=== PATIENT | male | born 1970 | race African-American/Black ===

== ENCOUNTER 2016-11-14 04:52 | Observation (INO) | payer BC ==
--- NOTE | 2016-11-14 05:39 | ED ---
General Adult HPI - General Chief complaint: Shortness of Breath Stated complaint: SOB Time Seen by Provider: 11/14/16 05:33 Source: patient, RN notes reviewed Mode of arrival: ambulatory Limitations: no limitations - History of Present Illness Initial comments: Patient is a pleasant 46-year-old male presenting to the emergency Department with some complaints of difficulty breathing. Patient states this usually occurs after he swallows. Patient feels like this is the back of his throat. Patient occasionally has a cough or gagging sensation. Patient has no difficulty in breathing at this time. No chest pain. No palpitations. Patient has not had rhinorrhea. No fever. - Related Data Home Medications Medication Instructions Recorded Confirmed Atorvastatin Calcium [Lipitor] 10 mg PO HS 11/14/16 11/14/16 Olmesartan/Amlodipin/Hcthiazid 1 each PO DAILY 11/14/16 11/14/16 [[id number] 40-10-25Mg] Allergies Allergy/AdvReac Type Severity Reaction Status Date / Time No Known Allergies Allergy Verified 11/14/16 04:59 Review of Systems ROS Statement: Those systems with pertinent positive or pertinent negative responses have been documented in the HPI. ROS Other: All systems not noted in ROS Statement are negative. Constitutional: Denies: fever Eyes: Denies: eye pain ENT: Reports: throat pain. Denies: ear pain Respiratory: Reports: dyspnea. Denies: cough Cardiovascular: Denies: chest pain, palpitations Endocrine: Denies: fatigue Gastrointestinal: Denies: abdominal pain Genitourinary: Denies: dysuria Musculoskeletal: Denies: back pain Skin: Denies: rash Neurological: Denies: weakness Past Medical History Past Medical History: Hypertension History of Any Multi-Drug Resistant Organisms: None Reported Past Surgical History: Orthopedic Surgery Additional Past Surgical History / Comment(s): right knee Past Psychological History: No Psychological Hx Reported Smoking Status: Current every day smoker Past Alcohol Use History: Occasional Past Drug Use History: None Reported General Exam Limitations: no limitations General appearance: alert, in no apparent distress Head exam: Present: atraumatic Eye exam: Present: normal appearance, PERRL ENT exam: Present: normal oropharynx Neck exam: Present: normal inspection Respiratory exam: Present: normal lung sounds bilaterally Cardiovascular Exam: Present: irregular rhythm GI/Abdominal exam: Present: soft. Absent: tenderness Extremities exam: Present: normal inspection. Absent: pedal edema, calf tenderness Back exam: Present: normal inspection Neurological exam: Present: alert Psychiatric exam: Present: normal affect, normal mood Skin exam: Absent: rash Course Vital Signs 11/14/16 11/14/16 04:54 06:23 Temperature 98.1 F Pulse Rate 85 79 Respiratory 20 16 Rate Blood Pressure 155/84 160/107 O2 Sat by Pulse 97 97 Oximetry - Reevaluation(s) Reevaluation #1: 11/14/16 05:54 Patient states he did see his doctor about a month ago with question of arrhythmia. Patient had an appointment to see a yield loss inspector however EKG was not done there and they were still waiting to see the original EKG from the primary care physician. EKG Findings - EKG Comments: EKG Findings:: A. fib with rate of 81. QRS 84. QT 374. QT TC 434. Normal axis. normal QRS. Lateral T wave inversion. Medical Decision Making - Medical Decision Making Patient does not meet sepsis criteria. Patient will be started with antibiotics for possible early pneumonia. Case was discussed in detail with practitioner Pamela larsen, who will admit for Dr. Guillory, covering for Dr. Montoya. Cardiology will be consulted and echo place. Patient will be started on IV heparin for anticoagulation for atrial fibrillation - Lab Data Result diagrams: 11/14/16 05:55 11/14/16 05:55 Lab Results 11/14/16 11/14/16 11/14/16 Range/Units 05:55 05:55 05:55 WBC 6.7 (3.8-10.6) k/uL RBC 4.73 (4.30-5.90) m/uL Hgb 12.8 L (13.0-17.5) gm/dL Hct 40.1 (39.0-53.0) % MCV 84.8 (80.0-100.0) fL MCH 27.0 (25.0-35.0) pg MCHC 31.9 (31.0-37.0) g/dL RDW 14.8 (11.5-15.5) % Plt Count 158 (150-450) k/uL Neutrophils % (Manual) 49.0 % Lymphocytes % (Manual) 46.0 % Monocytes % (Manual) 2.0 % Eosinophils % (Manual) 3.0 % Neutrophils # (Manual) 3.3 (1.3-7.7) k/uL Lymphocytes # (Manual) 3.1 (1.0-4.8) k/uL Monocytes # (Manual) 0.1 (0-1.0) k/uL Eosinophils # (Manual) 0.2 (0-0.7) k/uL Nucleated RBCs 0 (0-0) /100 WBC Manual Slide Review Performed PT (9.0-12.0) sec INR (<1.1) APTT (22.0-30.0) sec Sodium 142 (137-145) mmol/L Potassium 4.1 (3.5-5.1) mmol/L Chloride 108 H (98-107) mmol/L Carbon Dioxide 28 (22-30) mmol/L Anion Gap 6 mmol/L BUN 10 (9-20) mg/dL Creatinine 0.60 L (0.66-1.25) mg/dL Est GFR (MDRD) Af Amer >60 (>60 ml/min/1.73 sqM) Est GFR (MDRD) Non-Af >60 (>60 ml/min/1.73 sqM) Glucose 118 H (74-99) mg/dL Calcium 8.7 (8.4-10.2) mg/dL Magnesium 2.1 (1.6-2.3) mg/dL Total Bilirubin 0.3 (0.2-1.3) mg/dL AST 27 (17-59) U/L ALT 50 (21-72) U/L Alkaline Phosphatase 61 (38-126) U/L Total Creatine Kinase 121 (55-170) U/L CK-MB (CK-2) 0.4 (0.0-2.4) ng/mL CK-MB (CK-2) Rel Index 0.3 Troponin I <0.012 (0.000-0.034) ng/mL NT-Pro-B Natriuret Pep pg/mL Total Protein 6.2 L (6.3-8.2) g/dL Albumin 3.8 (3.5-5.0) g/dL 11/14/16 11/14/16 Range/Units 05:55 05:55 WBC (3.8-10.6) k/uL RBC (4.30-5.90) m/uL Hgb (13.0-17.5) gm/dL Hct (39.0-53.0) % MCV (80.0-100.0) fL MCH (25.0-35.0) pg MCHC (31.0-37.0) g/dL RDW (11.5-15.5) % Plt Count (150-450) k/uL Neutrophils % (Manual) % Lymphocytes % (Manual) % Monocytes % (Manual) % Eosinophils % (Manual) % Neutrophils # (Manual) (1.3-7.7) k/uL Lymphocytes # (Manual) (1.0-4.8) k/uL Monocytes # (Manual) (0-1.0) k/uL Eosinophils # (Manual) (0-0.7) k/uL Nucleated RBCs (0-0) /100 WBC Manual Slide Review PT 10.0 (9.0-12.0) sec INR 1.0 (<1.1) APTT 23.6 (22.0-30.0) sec Sodium (137-145) mmol/L Potassium (3.5-5.1) mmol/L Chloride (98-107) mmol/L Carbon Dioxide (22-30) mmol/L Anion Gap mmol/L BUN (9-20) mg/dL Creatinine (0.66-1.25) mg/dL Est GFR (MDRD) Af Amer (>60 ml/min/1.73 sqM) Est GFR (MDRD) Non-Af (>60 ml/min/1.73 sqM) Glucose (74-99) mg/dL Calcium (8.4-10.2) mg/dL Magnesium (1.6-2.3) mg/dL Total Bilirubin (0.2-1.3) mg/dL AST (17-59) U/L ALT (21-72) U/L Alkaline Phosphatase (38-126) U/L Total Creatine Kinase (55-170) U/L CK-MB (CK-2) (0.0-2.4) ng/mL CK-MB (CK-2) Rel Index Troponin I (0.000-0.034) ng/mL NT-Pro-B Natriuret Pep 109 pg/mL Total Protein (6.3-8.2) g/dL Albumin (3.5-5.0) g/dL - Radiology Data Radiology results: image reviewed (Chest x-ray shows possible early infiltrate right infrahilar region) Disposition Clinical Impression: New onset atrial fibrillation Disposition: ADMITTED IP TO THIS HOSP
[2016-11-14 06:10] LABS: Aty Lym Flag Slight; CH 27.6; CHCM 32.8; HCT 40.1 % (39.0-53.0); HDW 2.69; HGB 12.8 gm/dL (13.0-17.5); MCHC 31.9 g/dL (31.0-37.0); MCV 84.8 fL (80.0-100.0); Mean Platelet Volume 9.6; RBC 4.73 m/uL (4.30-5.90); RDW 14.8 % (11.5-15.5); WBC 6.7 k/uL (3.8-10.6); WBC (Perox) 6.99
[2016-11-14 06:18] LABS: Partial Thromboplastin Time 23.6 sec (22.0-30.0)
[2016-11-14 06:19] LABS: ALT 50 U/L (21-72); AST 27 U/L (17-59); Alkaline Phosphatase 61 U/L (38-126); Anion Gap 6 mmol/L; Blood Urea Nitrogen 10 mg/dL (9-20); Calcium 8.7 mg/dL (8.4-10.2); Carbon Dioxide 28 mmol/L (22-30); Chloride 108 mmol/L (98-107); Glucose 118 mg/dL (74-99); Magnesium 2.1 mg/dL (1.6-2.3); Non-African American GFR(MDRD) >60 (>60 ml/min/1.73 sqM); Potassium 4.1 mmol/L (3.5-5.1); Sodium 142 mmol/L (137-145); Total Bilirubin 0.3 mg/dL (0.2-1.3); Total Protein 6.2 g/dL (6.3-8.2)
--- NOTE | 2016-11-14 06:20 | XR ---
EXAM: XR Chest, 2 Views. CLINICAL HISTORY: Reason: dysrhythmia TECHNIQUE: Frontal and lateral views of the chest. COMPARISON: No relevant prior studies available. FINDINGS: Lungs: Slight increased right infrahilar opacity which may represent confluence of vasculature. Possible early infiltrate. Follow-up recommended. Pleural space: Unremarkable. No pneumothorax. Heart: Cardiovascular silhouette within normal limits. Bones/joints: Unremarkable. Vasculature: Mildly tortuous thoracic aorta. Tubes, lines and devices: Overlying chest leads obscure portion of the chest. Upper abdomen: Mild eventration of the right hemidiaphragm. IMPRESSION: 1. Finding in the right infrahilar region which may represent confluence of vessels. Follow-up recommended to exclude early infiltrate. 2. No effusion.
[2016-11-14 06:25] LABS: Add Differential Manual Differential
[2016-11-14 06:27] LABS: Nucleated Red Blood Cells 0 /100 WBC (0-0); Total Cells Counted 100
[2016-11-14 06:28] LABS: Manual Review Performed
[2016-11-14 06:30] LABS: Creatine Kinase 121 U/L (55-170)
[2016-11-14 06:43] LABS: Creatine Kinase MB 0.4 ng/mL (0.0-2.4); Troponin I <0.012 ng/mL (0.000-0.034)
[2016-11-14] MEDS ORDERED: HEPARIN SODIUM,PORCINE 5,000 UNIT/ML 1 ML VIAL IV ONE (06:53)
[2016-11-14] MEDS ORDERED: HEPARIN SODIUM,PORCINE 5,000 UNIT/ML 1 ML VIAL IV PRN (06:53)
[2016-11-14] MEDS ORDERED: NITROGLYCERIN SL TABS 0.4 MG TAB SUBLINGUAL PRN (06:53)
[2016-11-14] MEDS ORDERED: HEPARIN SODIUM,PORCINE/D5W PMX 25,000 UNIT in DEXTROSE/WATER 1 500ML.BAG IV SCH (07:00)
[2016-11-14 09:42] VITALS: RESP 18
--- NOTE | 2016-11-14 09:52 | ECHOF ---
Referral Reason:new onset a fib MEASUREMENTS -------- HEIGHT: 175.3 cm WEIGHT: 123.4 kg BP: 160/107 RVIDd: 3.3 cm (< 3.3) IVSd: 1.4 cm (0.6 - 1.1) LVIDd: 4.6 cm (3.9 - 5.3) LVPWd: 1.4 cm (0.6 - 1.1) IVSs: 1.9 cm LVIDs: 3.2 cm LVPWs: 2.4 cm LA Diam: 2.9 cm (2.7 - 3.8) LAESV Index (A-L): 24.63 ml/m Ao Diam: 3.7 cm (2.0 - 3.7) AV Cusp: 2.2 cm (1.5 - 2.6) LA Diam: 2.8 cm (2.7 - 3.8) MV EXCURSION: 15.271 mm (> 18.000) MV EF SLOPE: 75 mm/s (70 - 150) EPSS: 0.7 cm RAP: 5.00 mmHg RVSP: 30.43 mmHg FINDINGS -------- Atrial fibrillation. This was a technically adequate study. There is moderate concentric left ventricular hypertrophy. Overall left ventricular systolic function is normal with, an EF between 55 - 60 %. The right ventricle is mildly enlarged. Normal LA size by volume 22+/-6 ml/m2. The right atrium is normal in size. 1.5mg of Definity was utilized for enhancement of images The aortic valve is trileaflet and appears structurally normal. The mitral valve leaflets are mildly thickened. Mild mitral annular calcification present. Mild tricuspid regurgitation present. Right ventricular systolic pressure is normal at < 35 mmHg. The pulmonic valve was not well visualized. The aortic root is mildy dilated. The inferior vena cava is mildly dilated. Echo free space may represent effusion or a pericardial fat pad. CONCLUSIONS -------- 1. Atrial fibrillation. 2. The mitral valve leaflets are mildly thickened. 3. Mild mitral annular calcification present. 4. Mild tricuspid regurgitation present. 5. Right ventricular systolic pressure is normal at < 35 mmHg. 6. The pulmonic valve was not well visualized. 7. The aortic root is mildy dilated. 8. The inferior vena cava is mildly dilated. 9. Echo free space may represent effusion or a pericardial fat pad. 10. This was a technically adequate study. 11. There is moderate concentric left ventricular hypertrophy. 12. Overall left ventricular systolic function is normal with, an EF between 55 - 60 %. 13. The right ventricle is mildly enlarged. 14. Normal LA size by volume 22+/-6 ml/m2. 15. The right atrium is normal in size. 16. 1.5mg of Definity was utilized for enhancement of images 17. The aortic valve is trileaflet and appears structurally normal. SALES REPRESENTATIVE EDUCATION COURSES: Tiffanie Harvey RDCS
[2016-11-14 11:57] LABS: Creatine Kinase 108 U/L (55-170)
[2016-11-14 12:09] LABS: Creatine Kinase MB 0.4 ng/mL (0.0-2.4); Troponin I <0.012 ng/mL (0.000-0.034)
[2016-11-14] MEDS: LOSARTAN 50 MG TAB PO SCH (12:42)
[2016-11-14] MEDS: ATORVASTATIN 10 MG TAB PO SCH (12:43)
[2016-11-14] MEDS: amLODIPine 10 MG TAB PO SCH (12:43)
[2016-11-14] MEDS: HYDROCHLOROTHIAZIDE 25 MG TAB PO SCH (12:44)
[2016-11-14] MEDS: RIVAROXABAN 10 MG TAB PO SCH (12:44)
--- NOTE | 2016-11-14 13:05 | CONS ---
DATE OF CONSULTATION: Mr. Robledo is a 46-year-old, gentleman who came to the emergency room with the complaint of some difficulty in breathing and palpitations. Patient gives a history that he had been having some palpitations and fluttering in the chest on and off. He denied any dizziness, lightheadedness or syncope. Patient does have a history of palpitation on and off. He has been evaluated by Dr. Reynolds in the past. According to him, he has not been told in the past that he has atrial fibrillation. He does have a history of hypertension. Patient was having some kind of discomfort in the back of the throat. Home medications include Lipitor and a combination of olmesartan, amlodipine and hydrochlorothiazide. Past medical history includes history of orthopedic surgery, hypertension. Review of systems is otherwise unremarkable. Physical examination at present reveals a 46-year-old, obesely-built gentleman who does not appear to be in any acute distress. Patient's heart rate is a 60 to 80 per minute, blood pressure is 149/95 mmHg. HEENT examination is negative. Neck is supple. There is no increase in jugular venous pressure. Both the carotid pulses are felt. There is no bruit. Chest is symmetrical. HEART: The PMI is not felt. First and second heart sounds are normal. No significant murmurs are noted. Lungs are clinically clear to auscultation and percussion. Abdomen is soft. Liver and spleen are not enlarged. Bowel sounds are heard. EXTREMITIES: Peripheral pulsations are 2+. Patient's electrolytes are normal. Creatinine is 0.6. Patient's proBNP level is 109 and FT4 is 0.73 and FT3 is 4.5, TSH is 2.3. Patient's echocardiogram shows a normal left ventricular systolic function with moderate degree of left ventricular hypertrophy. FINAL IMPRESSION: 1. This patient has come with symptoms of palpitations. Patient has been found to be in atrial fibrillation but the patient's rate is controlled in the range of 70 to 82. 2. History of hypertension. 3. Echocardiogram reveals a moderate degree of left ventricular hypertrophy with normal left ventricular systolic function. RECOMMENDATIONS: In view of the patient's risk factors, we will start the patient on Xarelto 20 mg daily and monitor the patient. If the patient's rate remains controlled, patient can be discharged home and can be considered for MANOLO cardioversion as an outpatient.
--- NOTE | 2016-11-14 18:21 | HP ---
DATE OF ADMISSION: 11/14/2016 CHIEF COMPLAINT: Shortness of breath and chest pain. HISTORY OF PRESENT ILLNESS: This 46-year-old gentleman with a past medical history of hypertension, hyperlipidemia, history of cardiac arrhythmia, previously, history of DJD, being followed by Dr. Bejarano and Dr. East in the outpatient setting was noted to have some shortness of some and vague chest pain in the anterior part of the chest. The patient came to [facility] Emergency Room Department and was found to have atrial fibrillation with PVCs. The patient admitted for further evaluation and treatment. The 2-D echo was done by cardiology, which showed ejection fraction 50% to 55% and no other major abnormalities as well. There is no history of any fever, rigors or chills. No history of headache, loss of consciousness or seizures at this time. The TSH 2.320, free T4 is 0.73. PAST MEDICAL HISTORY: History of hypertension, hyperlipidemia, history of degenerative joint disease. MEDICATIONS: Include: 1. Multivitamins 1 p.o. daily. 2. Lipitor 10 mg daily. 3. Olmesartan Amlodipine Hydrochlorothiazide 10/25 p.o. daily. ALLERGIES: None. FAMILY HISTORY: History of cancer in the family. SOCIAL HISTORY: History of smoking. Occasional alcohol intake. REVIEW OF SYSTEMS: ENT: No diminished hearing. No diminished vision. CARDIOVASCULAR: As mentioned earlier. RESPIRATORY: As mentioned earlier. GI: No nausea. : No dysuria. Nervous system: No numbness or weakness. ALLERGY/IMMUNOLOGY: No asthma or hayfever. MUSCULOSKELETAL: As mentioned earlier. HEMATOLOGY: As mentioned earlier. ENDOCRINE: No history of diabetes, hypothyroidism. CONSTITUTIONAL: As mentioned earlier. DERMATOLOGY: Negative. PSYCHIATRY: As mentioned earlier. PHYSICAL EXAMINATION: The patient is alert and oriented times three. Pulse 71. Blood pressure 149/95. Respiratory rate 18, temperature 97.5, pulse ox 98% on room air. HEENT: Conjunctivae normal. Oral mucosa moist. NECK: No jugular venous distention. No carotid bruit. No lymph node enlargement. CARDIOVASCULAR: S1, S2 muffled. No S3, no S4. RESPIRATORY: Breath sounds diminished at bases. A few scattered rhonchi and no crackles. ABDOMEN: Soft, nontender. No mass palpable. LEGS: No edema. No swelling. Nervous system: Higher function as mentioned. Moves all 4 limbs. No focal deficits. LYMPHATICS: No lymph nodes palpable in the neck, axillae or groin. SKIN: No ulcer, rash or bleeding. LABS: WBC 6.7, hemoglobin 3.8 and glucose 118, total protein 6.2 to free T4 6.73. ASSESSMENT: 1. Atrial fibrillation new onset with a controlled rate. 2. Hypertension. 3. Hyperlipidemia. 4. History of nicotine dependence. 5. History of degenerative joint disease. 6. Increased random blood sugar. 7. Anemia, normocytic, mild, probably anemia of chronic disease. RECOMMENDATIONS AND DISCUSSION: In this 46 -year-old gentleman who presented with multiple complex medical issues, we will monitor the patient closely. Continue the current medications and continue symptomatic treatment. Patient started on Xarelto. Monitor rate closely. Increase ambulation. Closely follow with cardiology. Guarded prognosis. Further recommendations to follow. 2-D echo will be ordered.
[2016-11-14 18:25] LABS: Creatine Kinase 125 U/L (55-170)
[2016-11-14 18:38] LABS: Creatine Kinase MB 0.4 ng/mL (0.0-2.4); Troponin I <0.012 ng/mL (0.000-0.034)
[2016-11-15 06:52] LABS: Mean Platelet Volume 9.7
[2016-11-15] MEDS: RIVAROXABAN 10 MG TAB PO SCH (06:59)
[2016-11-15 07:32] LABS: Cholesterol 186 mg/dL (<200); HDL Cholesterol 51 mg/dL (40-60); Triglycerides 200 mg/dL (<150)
[2016-11-15] MEDS ORDERED: ASPIRIN 325 MG TAB PO SCH (09:00)
[2016-11-15] MEDS: LOSARTAN 50 MG TAB PO SCH (09:44)
[2016-11-15] MEDS: ATORVASTATIN 10 MG TAB PO SCH (09:44)
[2016-11-15] MEDS: HYDROCHLOROTHIAZIDE 25 MG TAB PO SCH (09:44)
[2016-11-15] MEDS: amLODIPine 10 MG TAB PO SCH (09:44)
[2016-11-15] MEDS ORDERED: LOSARTAN 50 MG TAB PO SCH (09:53)
[2016-11-15] MEDS ORDERED: ATENOLOL 50 MG TAB PO SCH (10:00)
[2016-11-15] MEDS ORDERED: MULTIVITAMINS, THERA 1 EACH TAB PO SCH (12:00)
[2016-11-15 16:19] VITALS: BP 143/88; PULSE 68; TEMP 97.2
--- NOTE | 2016-11-15 18:14 | PN ---
Micky Robledo is a 46-year-old black gentleman. Patient is brought to hospital with increasing shortness of breath, atrial fibrillation with fast ventricular rate. Ventricular rates are well controlled at present time. Patient is on Xarelto. Once patient Xarelto we should be able to stop the heparin infusion. Patient was still having some episodes of fast ventricular rates. Switched around medications. Losartan has been decreased from 150 to 50 mg p.o. daily, atenolol 50 mg p.o. b.i.d. along with Xarelto. Patient's echocardiogram shows well-preserved LV function, ejection fraction of 55% to 60%. Pulmonary pressures are less than 35. Patient's medications at the present time include aspirin 325 mg, amlodipine 10 mg p.o. daily, atorvastatin 10 mg, hydrochlorothiazide 25 mg p.o. daily, losartan 50 mg, Rivaroxaban 20 mg p.o. daily, atenolol 50 mg p.o. b.i.d. Patient is making good progress and should be able to go home tomorrow if not today. There is possibility he may go today also. Vital signs are stable. Vital signs are with a pulse rate of 71 beats per minute, irregularly irregular, blood pressure 144/88, respirations of 18. HEAD: Normocephalic. HEENT unremarkable. NECK: Supple. No thyroid enlargement. No bruit noted. Good carotid upstroke. CARDIAC EXAMINATION: Regular rate and rhythm. LUNGS: Clinically to auscultation. ABDOMEN: Soft, ( ).
--- NOTE | 2016-11-16 10:24 | DS ---
DATE OF ADMISSION: 11/14/2016 DATE OF DISCHARGE: 11/15/2016 FINAL DIAGNOSES: 1. Atrial fibrillation, new onset with controlled rate. 2. Chest pain, nonspecific, possibly. 3. Hypertension. 4. Hyperlipidemia. 5. History nicotine dependence. 6. History of degenerative joint disease. 7. Increased random blood sugar. 8. Anemia, normocytic, mild, probably anemia of chronic disease. DISCHARGE DISPOSITION: The patient will be discharged in stable condition with guarded prognosis. HISTORY OF PRESENT ILLNESS: This 46-year-old gentleman with a past medical history of multiple medical problems being followed by Dr. Bejarano in the outpatient setting was admitted with atrial fibrillation as well as chest pain and multiple medical problems. Patient was treated in conjunction with Cardiology. Medications adjusted. Patient improved significantly. 2-D echo was reviewed. On exam, vitals are stable. CARDIOVASCULAR SYSTEM: S1, S2 muffled. RESPIRATORY: Breath sounds diminished in the bases. ABDOMEN: Soft. NERVOUS SYSTEM: No focal deficits. Ejection fraction found to be 55 to 60%. Patient will be discharged in stable condition with guarded prognosis. Diet is cardiac. Activity limited until follow-up. Follow-up with Dr. Bejarano 2 to 3 days. Follow with Cardiology as recommended. MEDICATIONS: 1. Tenormin 50 mg p.o. b.i.d. 2. Lipitor 10 mg p.o. daily. 3. Multivitamin 1 p.o. daily. 5. olmesartan/Amlodipine/hydrochlorothiazide 1 p.o. daily. 6. Xarelto 20 mg with breakfast. Once again, the patient will be discharged in a stable condition with guarded prognosis. [id number]
== END 2016-11-15 18:08 | disposition home or self-care (01) ==
LOC: EC 04:52 → 6SEL 06:53 → INTOOBSV 06:53 → 6SEL 07:14
PROVIDERS: ADMIT Hospitalist; ATTEND Hospitalist
DX: I48.91 Unspecified atrial fibrillation (principal); I10 Essential (primary) hypertension; E78.5 Hyperlipidemia, unspecified; D63.8 Anemia in other chronic diseases classified elsewhere; F17.200 Nicotine dependence, unspecified, uncomplicated; I49.3 Ventricular premature depolarization; I51.7 Cardiomegaly; R07.9 Chest pain, unspecified; M19.90 Unspecified osteoarthritis, unspecified site; R73.9 Hyperglycemia, unspecified; Z79.899 Other long term (current) drug therapy; D64.9 Anemia, unspecified
CPT/HCPCS: 99285; 96365; 96376; 36415; 93005; 93306; 84439; 84481; 83880; 80061; 80053; 82550; 82553; 83735; 84443; 84484; 85025; 85049; 85610; 85730; 71020; G0378 ×2; J1644 ×2; Q9957; 96366

== ENCOUNTER 2016-12-10 06:05 | Day surgery (SDC) | payer BC ==
[2016-12-04 17:59] VITALS: BMI 39.9
[~2016-12-10 06:05] MED LIST: BENZOCAINE SPRAY 100 APPLIC/CAN TOPICAL PRN; SODIUM CHLORIDE 0.9% 1,000 ML IV SCH
[2016-12-10 06:35] VITALS: BP 128/82; PULSE 60; RESP 16; TEMP 98.5
[2016-12-10] MEDS ORDERED: FLECAINIDE 50 MG TAB PO STA (08:26)
== END 2016-12-10 08:45 | disposition home or self-care (01) ==
LOC: CATHCVL 06:05
PROVIDERS: ATTEND Internal Medicine Cardiovascular Disease
DX: I48.1 Persistent atrial fibrillation (principal); Z53.8 Procedure and treatment not carried out for other reasons; I10 Essential (primary) hypertension; Z82.49 Family history of ischemic heart disease and other diseases of the circulatory system; R07.9 Chest pain, unspecified; Z79.01 Long term (current) use of anticoagulants; Z79.899 Other long term (current) drug therapy; F17.210 Nicotine dependence, cigarettes, uncomplicated
CPT/HCPCS: 93005

== ENCOUNTER 2017-04-24 19:02 | Emergency (ER) | payer BC, OTHER ==
[2017-04-24 19:10] VITALS: PULSE 62; RESP 18; TEMP 97.6
--- NOTE | 2017-04-24 19:41 | XR ---
EXAMINATION TYPE: XR wrist complete LT DATE OF EXAM: 04/24/2017 CLINICAL HISTORY: pain TECHNIQUE: Frontal, lateral and oblique images of the left wrist are obtained. COMPARISON: None. FINDINGS: There is no acute fracture/dislocation evident. The joint spaces appear within normal mabry its. The overlying soft tissue appears unremarkable. IMPRESSION: There is no acute fracture or dislocation seen. ICD 10 NO FRACTURE, INITIAL EVALUATION
--- NOTE | 2017-04-24 19:41 | ED ---
General Adult HPI - General Chief complaint: Extremity Injury, Upper Stated complaint: Hand Pain Time Seen by Provider: 04/24/17 19:21 Source: patient, RN notes reviewed Mode of arrival: ambulatory Limitations: no limitations - History of Present Illness Initial comments: Patient 46-year-old male who presents emergency room today with chief complaint of an injury to the left wrist. He does admit that he was at work pulling something out of the freezer when it was stuck and pulled harder and felt that something got pulled left wrist. He states it's worse with certain movements. He gives the example when he tried to open up a car door he felt this. He states it is a little swollen. He denies any other complaints or associated symptoms at this time. Patient denies any recent fever, chills, shortness of breath, chest pain, back pain, abdominal pain, nausea or vomiting, numbness or tingling, dysuria or hematuria, constipation or diarrhea, headaches or visual changes, or any other complaints. - Related Data Home Medications Medication Instructions Recorded Confirmed Aspirin 325 mg PO DAILY 04/24/17 04/24/17 Atenolol [Tenormin] 25 mg PO BID 04/24/17 04/24/17 Ibuprofen [Motrin] 1,600 mg PO DAILY PRN 04/24/17 04/24/17 Allergies Allergy/AdvReac Type Severity Reaction Status Date / Time No Known Allergies Allergy Verified 04/24/17 19:29 Review of Systems ROS Statement: Those systems with pertinent positive or pertinent negative responses have been documented in the HPI. ROS Other: All systems not noted in ROS Statement are negative. 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 Pt states he has an irregular sleep pattern and will wake up at night gasping and his heart is racing. History of Any Multi-Drug Resistant Organisms: None Reported Past Surgical History: Orthopedic Surgery Additional Past Surgical History / Comment(s): right knee arthroscopy Past Psychological History: No Psychological Hx Reported Smoking Status: Current every day smoker Past Alcohol Use History: Occasional Past Drug Use History: None Reported - Past Family History Father Family Medical History: Cancer Additional Family Medical History / Comment(s): Father at the age of 76yrs. Mother Additional Family Medical History / Comment(s): Mother had heart problem. Pt thinks it was a fast heart rate. He states she was hospitalized for this and received two medications that reacted together and caused her . General Exam - General Exam Comments Initial Comments: General: The patient is awake and alert, in no distress, and does not appear acutely ill. Neck: The neck is supple, there is no tenderness or JVD. Cardiovascular: There is a regular rate and rhythm. No murmur, rub or gallop is appreciated. Respiratory: Lungs are clear to auscultation, respirations are non-labored, breath sounds are equal. No wheezes, stridor, rales, or rhonchi. Musculoskeletal: Patient does have mild swelling to the left wrist. Shows good range of motion and all areas. Does have tenderness against resistance with extension at the left wrist. No bony tenderness on exam. Sensations are intact pulses equal bilaterally 2+. Neurological: A&O x 3. CN II-XII intact, There are no obvious motor or sensory deficits. Coordination appears grossly intact. Speech is normal. Skin: Skin is warm and dry and no rashes or lesions are noted. Psychiatric: Normal mood and affect. Limitations: no limitations Course Vital Signs 04/24/17 19:07 Temperature 97.6 F Pulse Rate 62 Respiratory 18 Rate Blood Pressure 185/101 O2 Sat by Pulse 99 Oximetry Medical Decision Making - Medical Decision Making X-ray negative for any fracture dislocation. Patient given Deep wrap. The emergency room. Advised follow-up with orthopedics next 7-10 days if symptoms persist. Disposition Clinical Impression: Wrist sprain Disposition: HOME SELF-CARE Condition: Good Instructions: Wrist Sprain (ED) Additional Instructions: Please follow-up with orthopedic in the next 7-10 days if symptoms persist. Please use Deep wrap on up but do not sleep with it on. Please continue to ice elevate and use ibuprofen for pain. Please return for any other concerns. Referrals: Lulu Bejarano MD [Primary Care Provider] - 1-2 days Too Alcantar MD [Medical Doctor] - 1-2 days Time of Disposition: 19:49
[2017-04-24 20:03] VITALS: BP 190/101
== END 2017-04-24 20:03 | disposition home or self-care (01) ==
LOC: EC 19:02
DX: S63.502A Unspecified sprain of left wrist, initial encounter (principal); I10 Essential (primary) hypertension; F17.200 Nicotine dependence, unspecified, uncomplicated; Z79.82 Long term (current) use of aspirin; Z79.899 Other long term (current) drug therapy; X50.9XXA Other and unspecified overexertion or strenuous movements or postures, initial encounter; Y92.69 Other specified industrial and construction area as the place of occurrence of the external cause; Y93.89 Activity, other specified; Y99.0 Civilian activity done for income or pay
CPT/HCPCS: 99283

== ENCOUNTER → 2017-04-29 | Outpatient (CLI) | payer BC, OTHER ==
--- NOTE | 2017-04-30 06:42 | CONS ---
REASON FOR THE CONSULTATION: Sleep apnea. A 46-year-old -[place] male patient coming in with loud snoring, fragmented sleep as the patient is awakened every hour or 2 for reasons I am not clear. He is able to go to sleep, however, his sleep is fragmented. He has been told by his girlfriend that he quits breathing also. He goes to bed around 10 p.m. Gets out of bed around 6 a.m. in the morning. He feels drowsy and sleepy during the day. Occasionally takes naps. He has had one episode of atrial fibrillation, currently his rhythm is sinus. No history of congestive heart failure, stroke or any other cardiac disease. No restlessness in the lower extremities. No nocturnal heartburn. No sleep walking or sleep talking. Sleeps on his size. Weight has been up by around 10 pounds over the past one year. PAST MEDICAL HISTORY: Obesity and A. fib. SURGICAL HISTORY: Surgical history is right knee surgery. ALLERGIES: Drug allergy is not known of. MEDICATIONS: Patient medications include ( ) and aspirin. SOCIAL HISTORY: He is a smoker. No history of alcohol. No history of IV drugs. FAMILY HISTORY: Brother has obstructive sleep apnea and diabetes mellitus. Mother has hypertension. Father of complications of prostate cancer. REVIEW OF SYSTEMS: Twelve point review of systems was done. Positive findings were mentioned above in history of present illness. PHYSICAL EXAMINATION: BP 160/98, pulse 60, respirations 16, temperature 99.0, saturation 96% on room air. Weight is 282. Height is 5 feet 8 inches. Neck size 15-3/4. GENERAL APPEARANCE: Calm, comfortable. HEENT: Short neck, crowing of posterior pharynx, Mallampati class 4. No goiter or neck masses. LUNGS: Clear to auscultation. HEART: Sounds regular rate and rhythm. Normal S1 and S2. ABDOMEN: Soft, nontender. No organomegaly. EXTREMITIES: No edema. No cyanosis or clubbing. IMPRESSION: 1. Clinically suspected obstructive sleep apnea, currently under investigation. The patient has fragmented sleep in addition to loud snoring and chronic fatigue and sleepiness. [place] score is at 7. 2. History of atrial fibrillation, current rhythm is sinus. 3. Obesity. PLAN: Proceed with a screening polysomnogram. [facility]
== END ==
LOC: SLEEP 15:09
PROVIDERS: ATTEND Internal Medicine Critical Care Medicine
DX: R06.83 Snoring (principal); E66.9 Obesity, unspecified; I48.91 Unspecified atrial fibrillation; Z79.82 Long term (current) use of aspirin
CPT/HCPCS: 99211

== ENCOUNTER 2017-05-01 06:45 | Emergency (ER) | payer OTHER ==
[2017-05-01 07:00] VITALS: BP 160/86; PULSE 86; RESP 16; TEMP 98.8
--- NOTE | 2017-05-01 07:19 | ED ---
General Adult HPI - General Chief complaint: Extremity Injury, Lower Stated complaint: rt knee pain Time Seen by Provider: 05/01/17 07:12 Source: patient, RN notes reviewed Mode of arrival: ambulatory Limitations: no limitations - History of Present Illness Initial comments: Patient is a pleasant 46-year-old male presenting to the emergency Department with right knee pain. Patient does have a history of arthroscopic surgery for meniscus injury approximately 15 years ago. Patient has occasional mild discomfort. Patient got out of bed this morning and stepped on a shoe and twisted his knee. Patient has increased discomfort since that time. No other areas of injury or concern. No swelling. - Related Data Home Medications Medication Instructions Recorded Confirmed Aspirin 325 mg PO DAILY 04/24/17 05/01/17 Atenolol [Tenormin] 25 mg PO BID 04/24/17 05/01/17 Pravastatin Sodium [Pravachol] 20 mg PO HS 05/01/17 05/01/17 Previous Rx's Medication Instructions Recorded Hydrocodone/Acetaminophen [[place] 1 each PO Q4HR PRN #15 tab 05/01/17 5-325] Allergies Allergy/AdvReac Type Severity Reaction Status Date / Time No Known Allergies Allergy Verified 05/01/17 07:42 Review of Systems ROS Statement: Those systems with pertinent positive or pertinent negative responses have been documented in the HPI. ROS Other: All systems not noted in ROS Statement are negative. Constitutional: Denies: fever Eyes: Denies: eye pain ENT: Denies: ear pain Respiratory: Denies: cough Cardiovascular: Denies: chest pain Endocrine: Denies: fatigue Gastrointestinal: Denies: abdominal pain Genitourinary: Denies: dysuria Musculoskeletal: Denies: back pain Skin: Denies: rash Neurological: Denies: weakness Past Medical History Past Medical History: Hyperlipidemia, Hypertension Additional Past Medical History / Comment(s): Pt states he had an arrhythmia found by his PCP about a month ago-he was sent for a cardiology appt-EKG done by PCP not available to [facility]. Pt states he has an irregular sleep pattern and will wake up at night gasping and his heart is racing. History of Any Multi-Drug Resistant Organisms: None Reported Past Surgical History: Orthopedic Surgery Additional Past Surgical History / Comment(s): right knee arthroscopy Past Psychological History: No Psychological Hx Reported Smoking Status: Current every day smoker Past Alcohol Use History: Occasional Past Drug Use History: None Reported - Past Family History Father Family Medical History: Cancer Additional Family Medical History / Comment(s): Father at the age of 76yrs. Mother Additional Family Medical History / Comment(s): Mother had heart problem. Pt thinks it was a fast heart rate. He states she was hospitalized for this and received two medications that reacted together and caused her . General Exam Limitations: no limitations General appearance: alert, in no apparent distress Head exam: Present: atraumatic Eye exam: Present: normal appearance Neck exam: Present: normal inspection Respiratory exam: Present: normal lung sounds bilaterally Cardiovascular Exam: Present: regular rate, normal rhythm Extremities exam: Present: tenderness (Mild tenderness in the area medial and lateral meniscus. No C. diff and swelling. Knee is stable.), other (Distally the extremity is neurovascular intact) Neurological exam: Present: alert. Absent: motor sensory deficit Psychiatric exam: Present: normal affect, normal mood Skin exam: Present: normal color Course Vital Signs 05/01/17 06:57 Temperature 98.8 F Pulse Rate 86 Respiratory 16 Rate Blood Pressure 160/86 O2 Sat by Pulse 98 Oximetry Medical Decision Making - Medical Decision Making Patient reexamined and resting comfortably in bed. Patient updated on results and need for follow-up. - Radiology Data Radiology results: image reviewed (X-ray of the right knee shows suspicious early osteoarthritis. Possible small effusion.) Disposition Clinical Impression: Knee sprain Disposition: HOME SELF-CARE Condition: Stable Instructions: Knee Sprain (ED) Additional Instructions: Please follow-up with your doctor in the next day or 2 for recheck. Consider orthopedic follow-up. Ice to affected area. Return for increased pain, swelling, leg problems, fevers, worsening symptoms or other concerns. Prescriptions: Hydrocodone/Acetaminophen [[place] 5-325] 1 each PO Q4HR PRN #15 tab PRN Reason: Pain Referrals: Lulu Bejarano MD [Primary Care Provider] - 1-2 days Too Alcantar MD [Medical Doctor] - 1-2 days Time of Disposition: 07:58
--- NOTE | 2017-05-01 07:36 | XR ---
EXAMINATION TYPE: XR knee complete RT , 3 VIEWS DATE OF EXAM ORDERED: 05/01/2017 HISTORY: Pain. COMPARISON: None. FINDINGS: There is some mild lateral joint space loss. There is minimal remodeling changes in the pa tellofemoral joint. There is fullness in the suprapatellar region making it impossible to exclude sma ll effusion. No acute osseous lesion is seen. IMPRESSION: 1. I SUSPECT VERY EARLY CHANGES OF OSTEOARTHRITIS. 2. I CANNOT EXCLUDE A SMALL RIGHT KNEE JOINT EFFUSION.
== END 2017-05-01 08:05 | disposition home or self-care (01) ==
LOC: EC 06:45
DX: S83.91XA Sprain of unspecified site of right knee, initial encounter (principal); I10 Essential (primary) hypertension; E78.5 Hyperlipidemia, unspecified; F17.200 Nicotine dependence, unspecified, uncomplicated; Z98.890 Other specified postprocedural states; Z79.82 Long term (current) use of aspirin; Z79.899 Other long term (current) drug therapy; X50.1XXA Overexertion from prolonged static or awkward postures, initial encounter
CPT/HCPCS: 99283; 73562; L1830

== ENCOUNTER → 2018-05-28 | Outpatient (CLI) | payer BC ==
--- NOTE | 2018-05-28 17:56 | US ---
EXAMINATION TYPE: US kidneys/renal and bladder DATE OF EXAM: 05/28/2018 COMPARISON: None CLINICAL HISTORY: 47-year-old male N39.0 RECURRENT UTI. Frequent UTIs, back pain. Patient states he gets sudden urges to urinate TECHNIQUE: Multiple sonographic images of the kidneys and bladder are obtained. FINDINGS: EXAM MEASUREMENTS: Right Kidney: 13.5 x 5.1 x 4.6 cm Left Kidney: 11.4 x 4.8 x 6.1 cm Right Kidney: There is either mild pelviectasis or extrarenal pelvis demonstrated. No evonne calyceal dilatation to suggest hydronephrosis. Left Kidney: Appears smaller in size compared to contralateral kidney. No hydronephrosis. Bladder: Partial distention limits its evaluation. Wall is mildly thickened at 4.5 mm. Bilateral Jets not seen IMPRESSION: Either mild pelviectasis(probably transient) or an extrarenal pelvis involving the right kidney. No c alyceal dilatation to suggest hydronephrosis. Mild circumferential bladder wall thickening could be secondary to partial distention, chronic bladde r wall hypertrophy, or cystitis. Clinically correlate.
== END | disposition home or self-care (01) ==
LOC: RADUSWWP 14:05
PROVIDERS: ATTEND Internal Medicine
DX: N32.89 Other specified disorders of bladder (principal); N39.0 Urinary tract infection, site not specified
CPT/HCPCS: 76770

== ENCOUNTER → 2018-07-30 | Outpatient (CLI) | payer BC ==
--- NOTE | 2018-07-30 10:45 | XR ---
EXAMINATION TYPE: XR lumbar spine 2 or 3V DATE OF EXAM: 07/30/2018 CLINICAL HISTORY: Low back pain after fall approximately 2 months prior TECHNIQUE: Frontal and lateral images of the lumbar spine are obtained. COMPARISON: None FINDINGS: There are 5 lumbar type vertebral bodies identified. The lumbar spine shows satisfactory alignment without evidence of acute fracture or dislocation. Vertebral body heights and disk space he ights are within normal limits. Minimal facet arthropathy is seen at L5-S1 and to a lesser degree at L4-L5. The overlying soft tissue appears unremarkable. IMPRESSION: No acute fracture or malalignment is seen in the lumbar spine.
== END | disposition home or self-care (01) ==
LOC: RADXRMAIN 08:23
PROVIDERS: ATTEND Internal Medicine
DX: M54.5 Low back pain (principal)
CPT/HCPCS: 72100

== ENCOUNTER 2018-09-20 10:28 | Emergency (ER) | payer BC ==
[2018-09-20 10:39] VITALS: TEMP 98.4
[2018-09-20 11:44] LABS: ALT 23 U/L (21-72); AST 24 U/L (17-59); Albumin 4.1 g/dL (3.5-5.0); Alkaline Phosphatase 46 U/L (38-126); Anion Gap 7 mmol/L; Blood Urea Nitrogen 13 mg/dL (9-20); Calcium 9.2 mg/dL (8.4-10.2); Carbon Dioxide 26 mmol/L (22-30); Chloride 110 mmol/L (98-107); Glucose 116 mg/dL (74-99); Potassium 4.1 mmol/L (3.5-5.1); Sodium 143 mmol/L (137-145); Total Bilirubin 0.6 mg/dL (0.2-1.3); Total Protein 6.8 g/dL (6.3-8.2)
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
[2018-09-20 11:46] LABS: Creatine Kinase 179 U/L (55-170)
[2018-09-20 11:50] LABS: D-Dimer 0.4 mg/L FEU (<0.60); Partial Thromboplastin Time 23.6 sec (22.0-30.0); Prothrombin Time 10.7 sec (9.0-12.0)
[2018-09-20 11:51] LABS: Basophils % (A) 1 %; Eosinophils # (A) 0.2 k/uL (0-0.7); Eosinophils % (A) 3 %; HCT 44.9 % (39.0-53.0); HGB 14.1 gm/dL (13.0-17.5); Lymphocytes # (A) 1.8 k/uL (1.0-4.8); Lymphocytes % (A) 31 %; MCH 26.2 pg (25.0-35.0); MCHC 31.4 g/dL (31.0-37.0); MCV 83.3 fL (80.0-100.0); Mean Platelet Volume 9.7; Monocytes # (A) 0.4 k/uL (0-1.0); Monocytes % (A) 6 %; Neutrophils # (A) 3.3 k/uL (1.3-7.7); Neutrophils % (A) 55 %; Platelet Count 179 k/uL (150-450); RBC 5.39 m/uL (4.30-5.90); RDW 14.9 % (11.5-15.5); WBC 5.9 k/uL (3.8-10.6)
[2018-09-20 11:59] LABS: Troponin I <0.012 ng/mL (0.000-0.034)
--- NOTE | 2018-09-20 12:27 | XR ---
EXAMINATION TYPE: XR chest 2V DATE OF EXAM: 09/20/2018 HISTORY: difficulty breathing. REFERENCE: Previous study dated 11/14/2016. FINDINGS: The lungs are clear. Pleural space are clear. Heart size upper limits of normal. IMPRESSION: NO ACUTE INTRATHORACIC ABNORMALITY.
[2018-09-20 12:43] VITALS: BP 143/114; PULSE 108; RESP 20
== END 2018-09-20 13:28 | disposition home or self-care (01) ==
LOC: EC 10:28
DX: I48.91 Unspecified atrial fibrillation (principal); F41.9 Anxiety disorder, unspecified; I10 Essential (primary) hypertension; E78.5 Hyperlipidemia, unspecified; F17.200 Nicotine dependence, unspecified, uncomplicated; Z79.899 Other long term (current) drug therapy
CPT/HCPCS: 36415; 71046; 80053; 82550; 82553; 83880; 84484; 85025; 85379; 85610; 85730; 93005; 99285

== ENCOUNTER 2019-02-01 02:25 | Emergency (ER) | payer BC ==
--- NOTE | 2019-02-01 03:52 | XR ---
EXAM: XR Left Shoulder Complete, 2 or More Views XR Right Shoulder Complete, 2 or More Views CLINICAL HISTORY: Pain TECHNIQUE: Two or more views of the bilateral shoulders. COMPARISON: No relevant prior studies available. FINDINGS: Bones/joints: Unremarkable. No acute fracture. No dislocation. Soft tissues: Unremarkable. IMPRESSION: No radiographic evidence of acute fracture or dislocation.
--- NOTE | 2019-02-01 03:59 | ED ---
Extremity Problem HPI - General Chief complaint: Extremity Problem,Nontraumatic Stated complaint: shoulder,chest, and leg pain Time Seen by Provider: 02/01/19 02:54 Source: patient Mode of arrival: wheelchair Limitations: no limitations - History of Present Illness Initial comments: 48-year-old male patient presents to the emergency department today for evaluation of bilateral shoulder pain and bilateral lower extremity edema. The patient states that he has been working a lot. Patient states never he rates his arms above his head he has pain in her shoulder and tightness across his chest. Patient states that his muscles have been sore. Patient is also reporting swelling to the bilateral lower extremities. States it is mild. States it gets worse after he stands on his feet all day at work. Patient denies any shortness of breath. Denies any chest pain at rest. Denies any known injury to the shoulders. Denies any cough, fever, or chills. Patient denies any headache, neck pain, back pain, chest pain, dizziness, weakness, abdominal pain, nausea, vomiting, or difficulties with bowel movements or urination. - Related Data Home Medications Medication Instructions Recorded Confirmed Aclidinium [place] [Tudorza 1 puff INHALATION RT-BID 09/20/18 09/20/18 Pressair] Albuterol Nebulized (Conc) 2.5 mg INHALATION RT-QID 09/20/18 09/20/18 [Ventolin Nebulized (Conc)] Fenofibrate Nanocrystallized 145 mg PO DAILY 09/20/18 09/20/18 [Tricor] Ibuprofen [Motrin] 800 mg PO Q12HR 09/20/18 09/20/18 Multivitamins, Thera [Multivitamin 1 tab PO DAILY 09/20/18 09/20/18 (formulary)] Olmesartan/Amlodipin/Hcthiazid 1 tab PO DAILY 09/20/18 09/20/18 [Tribenzor 40-10-25 mg Tablet] Pantoprazole Sodium [Protonix] 40 mg PO DAILY 09/20/18 09/20/18 Previous Rx's Medication Instructions Recorded Cyclobenzaprine [Flexeril] 10 mg PO TID #15 tab 02/01/19 Allergies Allergy/AdvReac Type Severity Reaction Status Date / Time No Known Allergies Allergy Verified 02/01/19 02:49 Review of Systems ROS Statement: Those systems with pertinent positive or pertinent negative responses have been documented in the HPI. ROS Other: All systems not noted in ROS Statement are negative. 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 Pt states he has an irregular sleep pattern and will wake up at night gasping and his heart is racing. History of Any Multi-Drug Resistant Organisms: None Reported Past Surgical History: Orthopedic Surgery Additional Past Surgical History / Comment(s): right knee arthroscopy, cardioversion 10/20 Past Psychological History: No Psychological Hx Reported Smoking Status: Current every day smoker Past Alcohol Use History: Occasional Past Drug Use History: None Reported - Past Family History Father Family Medical History: Cancer Additional Family Medical History / Comment(s): Father at the age of 76yrs. Mother Additional Family Medical History / Comment(s): Mother had heart problem. Pt thinks it was a fast heart rate. He states she was hospitalized for this and received two medications that reacted together and caused her . General Exam Limitations: no limitations General appearance: alert, in no apparent distress, other (Distal well- developed, well-nourished adult male patient in no acute distress. Vital signs upon presentation are temperature 99.1F, pulse 68, respirations 16, blood pressure 146/101, pulse ox 99% on room air.) Eye exam: Present: normal appearance, PERRL, EOMI. Absent: scleral icterus, conjunctival injection, periorbital swelling ENT exam: Present: normal exam, normal oropharynx, mucous membranes moist Respiratory exam: Present: normal lung sounds bilaterally. Absent: respiratory distress, wheezes, rales, rhonchi, stridor Cardiovascular Exam: Present: regular rate, normal rhythm, normal heart sounds. Absent: systolic murmur, diastolic murmur, rubs, gallop, clicks GI/Abdominal exam: Present: soft, normal bowel sounds. Absent: distended, tenderness, guarding, rebound, rigid Extremities exam: Present: normal inspection, full ROM, normal capillary refill, other (Skin to the extremity is warm, dry. Cap refills less than 3 seconds. Pedal and posttibial pulses are 2+ and equal bilaterally. There is 1+ pitting edema noted to the bilateral lower extremities.). Absent: tenderness, pedal edema, joint swelling, calf tenderness Neurological exam: Present: alert, oriented X3, CN II-XII intact Psychiatric exam: Present: normal affect, normal mood Skin exam: Present: warm, dry, intact, normal color. Absent: rash Course Vital Signs 02/01/19 02/01/19 02:46 04:44 Temperature 99.1 F 97.7 F Pulse Rate 68 59 L Respiratory 16 17 Rate Blood Pressure 146/101 167/107 O2 Sat by Pulse 99 100 Oximetry Medical Decision Making - Medical Decision Making 48-year-old male patient presented to the emergency department today for evaluation of bilateral shoulder discomfort when raising his arms above his head. Patient is also reporting edema to the lower extremities after standing at work all day. Physical examination did reveal good neurovascular status to the upper and lower extremities. No joint tenderness. No redness or swelling. There is 1+ pitting edema noted to the bilateral lower extremities. This is felt to be dependent as he has no calf tenderness. No trouble breathing, lungs are clear to auscultation. X-rays of the shoulders were negative for any acute abnormalities. He'll be discharged home with instructions to take ibuprofen for pain control. He is instructed to stretch his muscles and consider massage. He is instructed to use compression stockings well working and to keep legs elevated as much as possible. He is instructed to follow-up with his primary care physician for recheck in 1-2 days. Return parameters were discussed in detail. He verbalizes understanding and agrees with this plan. Disposition Clinical Impression: Shoulder pain, Bilateral lower extremity edema Disposition: HOME SELF-CARE Condition: Good Instructions (If sedation given, give patient instructions): Leg Edema (ED), Shoulder Pain (ED) Additional Instructions: Take Tylenol Motrin for pain control. Discuss your anticoagulation with your physician. Wear compression stockings to minimize swelling. Keep leg elevated as much as possible. Follow-up with your primary care physician for recheck in 1-2 days. Return to the emergency department immediately for any new, worsening, or concerning symptoms. Prescriptions: Cyclobenzaprine [Flexeril] 10 mg PO TID #15 tab Is patient prescribed a controlled substance at d/c from ED?: No Referrals: Lulu Bejarano MD [Primary Care Provider] - 1-2 days Time of Disposition: 03:59
[2019-02-01] MEDS ORDERED: CYCLOBENZAPRINE 10MG STARTER 3 TAB BTL PO STA (04:05)
[2019-02-01] MEDS ORDERED: KETOROLAC 30 MG/ML 1 ML VIAL IM STA (04:05)
[2019-02-01 04:45] VITALS: BP 167/107; PULSE 59; RESP 17; TEMP 97.7
== END 2019-02-01 04:54 | disposition home or self-care (01) ==
LOC: EC 02:25
DX: M25.511 Pain in right shoulder (principal); M25.512 Pain in left shoulder; R60.0 Localized edema; R07.89 Other chest pain; E78.5 Hyperlipidemia, unspecified; I10 Essential (primary) hypertension; F17.200 Nicotine dependence, unspecified, uncomplicated; Z82.49 Family history of ischemic heart disease and other diseases of the circulatory system; Z79.1 Long term (current) use of non-steroidal anti-inflammatories (NSAID); Z79.899 Other long term (current) drug therapy
CPT/HCPCS: 73030; 99284; 96372; J1885

== ENCOUNTER 2019-03-31 15:05 | Emergency (ER) | payer BC ==
[2019-03-31 15:09] VITALS: RESP 16
[2019-03-31] MEDS ORDERED: SODIUM CHLORIDE 0.9% 1,000 ML IV STA (15:43)
--- NOTE | 2019-03-31 15:51 | ED ---
General Adult HPI - General Chief complaint: Arrhythmia/Palpitations Time Seen by Provider: 03/31/19 15:14 Source: patient, RN notes reviewed Mode of arrival: ambulatory Limitations: no limitations - History of Present Illness Initial comments: Patient is a pleasant 48-year-old male presenting to the emergency department palpitations. Onset of symptoms was this morning. Symptoms have been steady through most the day however have resolved. Patient states he may have had some mild discomfort and dyspnea associated when symptoms were worse. Patient states discomfort is a chronic problem for him and unchanged. Patient this time is symptom-free. Patient options if his symptoms could be secondary to stress. Patient states he does have a history of atrial fibrillation previously with similar symptoms. - Related Data Home Medications Medication Instructions Recorded Confirmed Apixaban [Eliquis] 2.5 mg PO BID 03/31/19 03/31/19 Aspirin EC [Ecotrin] 325 mg PO DAILY 03/31/19 03/31/19 Atenolol [Tenormin] 25 mg PO BID 03/31/19 03/31/19 Hydrochlorothiazide 12.5 mg PO DAILY 03/31/19 03/31/19 Olmesartan Medoxomil [Benicar] 40 mg PO DAILY 03/31/19 03/31/19 Allergies Allergy/AdvReac Type Severity Reaction Status Date / Time No Known Allergies Allergy Verified 03/31/19 15:45 Review of Systems ROS Statement: Those systems with pertinent positive or pertinent negative responses have been documented in the HPI. ROS Other: All systems not noted in ROS Statement are negative. Constitutional: Denies: fever Eyes: Denies: eye pain ENT: Denies: ear pain Respiratory: Reports: as per HPI Cardiovascular: Reports: as per HPI, palpitations Endocrine: Denies: fatigue Gastrointestinal: Denies: abdominal pain Genitourinary: Denies: dysuria Musculoskeletal: Denies: back pain Skin: Denies: rash Neurological: Denies: weakness Psychiatric: Reports: anxiety Past Medical History Past Medical History: Atrial Fibrillation, Hyperlipidemia, Hypertension Additional Past Medical History / Comment(s): Pt states he had an arrhythmia found by his PCP about a month ago-he was sent for a cardiology appt-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 Pt states he has an irregular sleep pattern and will wake up at night gasping and his heart is racing. History of Any Multi-Drug Resistant Organisms: None Reported Past Surgical History: Orthopedic Surgery Additional Past Surgical History / Comment(s): right knee arthroscopy, cardioversion 10/20 Past Psychological History: No Psychological Hx Reported Smoking Status: Current every day smoker Past Alcohol Use History: Occasional Past Drug Use History: None Reported - Past Family History Father Family Medical History: Cancer Additional Family Medical History / Comment(s): Father at the age of 76yrs. Mother Additional Family Medical History / Comment(s): Mother had heart problem. Pt thinks it was a fast heart rate. He states she was hospitalized for this and received two medications that reacted together and caused her . General Exam Limitations: no limitations General appearance: alert, in no apparent distress Head exam: Present: atraumatic Eye exam: Present: normal appearance, PERRL ENT exam: Present: normal oropharynx Neck exam: Present: normal inspection Respiratory exam: Present: normal lung sounds bilaterally Cardiovascular Exam: Present: regular rate, normal rhythm Expanded Peripheral pulses: 2+: Radial (R), Radial (L), Posterior Tibialis (R), Posterior Tibialis (L) GI/Abdominal exam: Present: soft. Absent: tenderness Extremities exam: Present: normal inspection. Absent: pedal edema, calf tende rness Neurological exam: Present: alert Psychiatric exam: Present: normal affect, normal mood Skin exam: Present: normal color Course Vital Signs 03/31/19 15:07 Temperature 98.4 F Pulse Rate 70 Respiratory 16 Rate Blood Pressure 182/110 O2 Sat by Pulse 97 Oximetry EKG Findings - EKG Comments: EKG Findings:: Normal sinus rhythm 68. MS 132. QRS 80. QT 400. QTc 425. Normal axis. Normal QRS. No acute ST change. Medical Decision Making - Medical Decision Making Patient reevaluated and resting comfortably in bed. Patient remained symptom- free. Patient states he has not taken his medications in the past few days. Pressure has improved. Patient updated on results. Discussion had with patient regarding admission however patient refuses. Patient is agreeable to close follow-up with his primary care physician. Patient is made aware that troponin is limited and heart attack and all other causes of symptoms have not been comp letely ruled out at this time. Patient does them straight medical decision making. - Lab Data Result diagrams: 03/31/19 15:20 07/31/19 15:20 Lab Results 03/31/19 03/31/19 03/31/19 Range/Units 15:20 15:20 15:20 WBC 8.4 (3.8-10.6) k/uL RBC 4.89 (4.30-5.90) m/uL Hgb 12.7 L (13.0-17.5) gm/dL Hct 40.6 (39.0-53.0) % MCV 83.1 (80.0-100.0) fL MCH 26.0 (25.0-35.0) pg MCHC 31.3 (31.0-37.0) g/dL RDW 15.8 H (11.5-15.5) % Plt Count 146 L (150-450) k/uL Neutrophils % 77 % Lymphocytes % 13 % Monocytes % 5 % Eosinophils % 2 % Basophils % 1 % Neutrophils # 6.4 (1.3-7.7) k/uL Lymphocytes # 1.1 (1.0-4.8) k/uL Monocytes # 0.4 (0-1.0) k/uL Eosinophils # 0.1 (0-0.7) k/uL Basophils # 0.0 (0-0.2) k/uL Manual Slide Review Performed Hypochromasia Slight PT 10.3 (9.0-12.0) sec INR 1.0 (<1.2) APTT 24.5 (22.0-30.0) sec Sodium 142 (137-145) mmol/L Potassium 4.2 (3.5-5.1) mmol/L Chloride 108 H (98-107) mmol/L Carbon Dioxide 26 (22-30) mmol/L Anion Gap 8 mmol/L BUN 11 (9-20) mg/dL Creatinine 0.72 (0.66-1.25) mg/dL Est GFR (CKD-EPI)AfAm >90 (>60 ml/min/1.73 sqM) Est GFR (CKD-EPI)NonAf >90 (>60 ml/min/1.73 sqM) Glucose 112 H (74-99) mg/dL Calcium 8.9 (8.4-10.2) mg/dL Magnesium 1.8 (1.6-2.3) mg/dL Total Bilirubin 0.8 (0.2-1.3) mg/dL AST 21 (17-59) U/L ALT 15 L (21-72) U/L Alkaline Phosphatase 59 (38-126) U/L Troponin I (0.000-0.034) ng/mL Total Protein 6.8 (6.3-8.2) g/dL Albumin 4.1 (3.5-5.0) g/dL TSH 0.921 (0.465-4.680) mIU/L Free T4 0.93 (0.78-2.19) ng/dL Free T3 pg/mL 3.3 (2.8-5.3) pg/ml 03/31/19 Range/Units 15:20 WBC (3.8-10.6) k/uL RBC (4.30-5.90) m/uL Hgb (13.0-17.5) gm/dL Hct (39.0-53.0) % MCV (80.0-100.0) fL MCH (25.0-35.0) pg MCHC (31.0-37.0) g/dL RDW (11.5-15.5) % Plt Count (150-450) k/uL Neutrophils % % Lymphocytes % % Monocytes % % Eosinophils % % Basophils % % Neutrophils # (1.3-7.7) k/uL Lymphocytes # (1.0-4.8) k/uL Monocytes # (0-1.0) k/uL Eosinophils # (0-0.7) k/uL Basophils # (0-0.2) k/uL Manual Slide Review Hypochromasia PT (9.0-12.0) sec INR (<1.2) APTT (22.0-30.0) sec Sodium (137-145) mmol/L Potassium (3.5-5.1) mmol/L Chloride (98-107) mmol/L Carbon Dioxide (22-30) mmol/L Anion Gap mmol/L BUN (9-20) mg/dL Creatinine (0.66-1.25) mg/dL Est GFR (CKD-EPI)AfAm (>60 ml/min/1.73 sqM) Est GFR (CKD-EPI)NonAf (>60 ml/min/1.73 sqM) Glucose (74-99) mg/dL Calcium (8.4-10.2) mg/dL Magnesium (1.6-2.3) mg/dL Total Bilirubin (0.2-1.3) mg/dL AST (17-59) U/L ALT (21-72) U/L Alkaline Phosphatase (38-126) U/L Troponin I <0.012 (0.000-0.034) ng/mL Total Protein (6.3-8.2) g/dL Albumin (3.5-5.0) g/dL TSH (0.465-4.680) mIU/L Free T4 (0.78-2.19) ng/dL Free T3 pg/mL (2.8-5.3) pg/ml - Radiology Data Radiology results: image reviewed (Chest x-ray shows no acute cardiopulmonary process. Questionable prominence of the ascending aorta is a chronic finding.) Disposition Clinical Impression: Palpitations Disposition: HOME SELF-CARE Condition: Stable Instructions (If sedation given, give patient instructions): Heart Palpitations (ED) Additional Instructions: Please follow-up with primary care physician in the next day or 2 for recheck. Have primary care physician monitor blood pressure. Return for chest pain, difficulty breathing, uncontrolled heart rate, worsening symptoms or any other concerns. Please do take your medications as prescribed. Is patient prescribed a controlled substance at d/c from ED?: No Referrals: Lulu Bejarano MD [Primary Care Provider] - 1-2 days Time of Disposition: 17:15
[2019-03-31] MEDS ORDERED: HYDROCHLOROTHIAZIDE 12.5 MG CAP PO STA (15:54)
[2019-03-31] MEDS ORDERED: LOSARTAN 50 MG TAB PO STA (15:54)
[2019-03-31] MEDS ORDERED: ATENOLOL 25 MG TAB PO STA (15:56)
[2019-03-31 15:57] LABS: Basophils % (A) 1 %; Eosinophils # (A) 0.1 k/uL (0-0.7); Eosinophils % (A) 2 %; HCT 40.6 % (39.0-53.0); HGB 12.7 gm/dL (13.0-17.5); Hypochromasia Slight; Lymphocytes # (A) 1.1 k/uL (1.0-4.8); Lymphocytes % (A) 13 %; MCHC 31.3 g/dL (31.0-37.0); MCV 83.1 fL (80.0-100.0); Mean Platelet Volume 10.9; Monocytes # (A) 0.4 k/uL (0-1.0); Monocytes % (A) 5 %; Neutrophils # (A) 6.4 k/uL (1.3-7.7); Neutrophils % (A) 77 %; RBC 4.89 m/uL (4.30-5.90); RDW 15.8 % (11.5-15.5); WBC 8.4 k/uL (3.8-10.6)
[2019-03-31 16:09] LABS: ALT 15 U/L (21-72); AST 21 U/L (17-59); African American GFR (CKD) >90 (>60 ml/min/1.73 sqM); Albumin 4.1 g/dL (3.5-5.0); Alkaline Phosphatase 59 U/L (38-126); Anion Gap 8 mmol/L; Blood Urea Nitrogen 11 mg/dL (9-20); Calcium 8.9 mg/dL (8.4-10.2); Carbon Dioxide 26 mmol/L (22-30); Chloride 108 mmol/L (98-107); Glucose 112 mg/dL (74-99); Magnesium 1.8 mg/dL (1.6-2.3); Non-African American GFR(CKD) >90 (>60 ml/min/1.73 sqM); Potassium 4.2 mmol/L (3.5-5.1); Sodium 142 mmol/L (137-145); Total Bilirubin 0.8 mg/dL (0.2-1.3); Total Protein 6.8 g/dL (6.3-8.2)
[2019-03-31 16:19] LABS: Partial Thromboplastin Time 24.5 sec (22.0-30.0); Prothrombin Time 10.3 sec (9.0-12.0)
--- NOTE | 2019-03-31 16:19 | XR ---
EXAMINATION TYPE: XR chest 2V DATE OF EXAM: 03/31/2019 COMPARISON: Prior chest x-ray 09/20/2018 and 08/26/2010 HISTORY: Dysrhythmia TECHNIQUE: Frontal and lateral views of the chest are obtained. FINDINGS: There is no focal air space opacity, pleural effusion, or pneumothorax seen. The cardiac silhouette size is within normal limits. The osseous structures are intact. Suspect prominence of t he a sending aorta although patient is rotated. There are overlying cardiac leads. IMPRESSION: No acute cardiopulmonary process. Questionable prominence of the ascending aorta is a ch ronic finding.
[2019-03-31 16:27] LABS: Platelet Count 146 k/uL (150-450); T4, Free (Free Thyroxine) 0.93 ng/dL (0.78-2.19)
[2019-03-31 17:30] VITALS: BP 182/106; PULSE 56; TEMP 97.8
== END 2019-03-31 17:33 | disposition home or self-care (01) ==
LOC: EC 15:05
DX: R00.2 Palpitations (principal); I10 Essential (primary) hypertension; I48.91 Unspecified atrial fibrillation; F17.200 Nicotine dependence, unspecified, uncomplicated; Z98.890 Other specified postprocedural states; Z79.01 Long term (current) use of anticoagulants; Z79.82 Long term (current) use of aspirin; Z79.899 Other long term (current) drug therapy
CPT/HCPCS: 36415; 71046; 80053; 83735; 84439; 84443; 84481; 84484; 85025; 85610; 85730; 93005; 96360; 99285

== ENCOUNTER → 2019-04-16 | Outpatient (CLI) | payer BC ==
--- NOTE | 2019-04-16 10:39 | CT ---
EXAMINATION TYPE: CT lumbar spine wo con DATE OF EXAM: 04/16/2019 9:08 AM COMPARISON: 10/03/2011 MRI lumbar spine HISTORY: Low back pain CT DLP: 920 mGycm Automated exposure control for dose reduction was used. Unenhanced CT of the lumbar spine was performed. Bone and soft tissue window settings are submitted as well as coronal and sagittal reconstructions. Vertebral body heights are maintained. Minimal retrolisthesis of L5 on S1. Prevertebral and paraspinal musculature are normal. Abdominal aorta is normal in caliber. Mild sclerosis of the bilateral sacroiliac joints. L1-L2: Moderate bilateral facet arthropathy and ligamentum flavum hypertrophy causing mild spinal can al narrowing without neural foraminal stenosis. L2-L3: Diffuse disc bulge causing mild bilateral neural foraminal narrowing. Mild facet arthropathy a nd ligament of flavum hypertrophy. L3-L4: Diffuse disc bulge, facet arthropathy and ligamentum flavum hypertrophy causing mild bilateral neural foraminal narrowing. L4-L5: Disc space narrowing with diffuse disc bulge, facet arthropathy and ligamentum flavum hypertro phy causing mild bilateral neural foraminal narrowing. L5-S1: Worsening disc space narrowing with vacuum disc phenomenon and bilateral facet arthropathy wit hout spinal canal stenosis. Marginal foraminal osteophytes greater on the right causes severe right f oraminal stenosis and moderate left neural foraminal stenosis. There is likely impingement of the exi ting right S1 nerve. IMPRESSION: Mild multilevel degenerative changes most severe at L5-S1 with likely impingement of the exiting righ t S1 nerve.
== END | disposition home or self-care (01) ==
LOC: RADCTMAIN 07:30
PROVIDERS: ATTEND Internal Medicine
DX: M51.37 Other intervertebral disc degeneration, lumbosacral region (principal)
CPT/HCPCS: 72131

== ENCOUNTER 2019-07-03 03:28 | Emergency (ER) | payer BC ==
--- NOTE | 2019-07-03 03:49 | ED ---
Chest Pain HPI - General Stated Complaint: SOB,Chest pain Time Seen by Provider: 07/03/19 03:40 - History of Present Illness Initial Comments: This patient is 48-year-old man who is presenting to be evaluated for shortness of breath. He states the symptoms have been going on for approximately one week. Seems to be worse when he is attempting to sleep or lie down. Patient states she has also had a little bit of a cough. He states that it is usually nonproductive though tonight there was just a little bit of clear sputum. He states that also tonight when he was coughing he had a pain just to the left of his sternum that radiated to his back. When he is not coughing there is no pain. The pain is mild and aching. No other associated symptoms. MD Complaint: other (Shortness of breath ) Onset/Timin -: week(s) Onset: during rest Pain Location: substernal Pain Radiation: back Severity: mild Quality: aching Consistency: intermittent (With cough) Worsens With: other (Off) Other Symptoms: cough Treatments Prior to Arrival: none - Related Data Home Medications Medication Instructions Recorded Confirmed Apixaban [Eliquis] 2.5 mg PO BID 03/31/19 03/31/19 Aspirin EC [Ecotrin] 325 mg PO DAILY 03/31/19 03/31/19 Atenolol [Tenormin] 25 mg PO BID 03/31/19 03/31/19 Hydrochlorothiazide 12.5 mg PO DAILY 03/31/19 03/31/19 Olmesartan Medoxomil [Benicar] 40 mg PO DAILY 03/31/19 03/31/19 Previous Rx's Medication Instructions Recorded Atenolol [Tenormin] 50 mg PO DAILY #30 tab 07/03/19 Allergies Allergy/AdvReac Type Severity Reaction Status Date / Time No Known Allergies Allergy Verified 07/03/19 03:49 Review of Systems ROS Statement: Those systems with pertinent positive or pertinent negative responses have been documented in the HPI. ROS Other: All systems not noted in ROS Statement are negative. Constitutional: Denies: fever, chills, weakness ENT: Denies: congestion Respiratory: Reports: as per HPI, cough, dyspnea. Denies: wheezes, hemoptysis, stridor Cardiovascular: Reports: as per HPI, chest pain Gastrointestinal: Denies: abdominal pain, nausea, vomiting, diarrhea, constipation, melena, hematochezia Genitourinary: Denies: dysuria, hematuria Musculoskeletal: Denies: back pain Skin: Denies: rash Neurological: Denies: headache, weakness, numbness EKG Findings - EKG Results: EKG: interpreted by JUDITH, sinus rhythm (Rate 67 bpm), normal axis, normal QRS - Blocks, [place], Hypertrophy, ST Abn: Repolarization changes or abnormalities: nonspecific abnormality, ST segment, and/or T wave Past Medical History Past Medical History: Atrial Fibrillation, Hyperlipidemia, Hypertension Additional Past Medical History / Comment(s): Pt states he had an arrhythmia found by his PCP about a month ago-he was sent for a cardiology appt-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 Pt states he has an irregular sleep pattern and will wake up at night gasping and his heart is racing. History of Any Multi-Drug Resistant Organisms: None Reported Past Surgical History: Orthopedic Surgery Additional Past Surgical History / Comment(s): right knee arthroscopy, cardioversion 10/20 Past Psychological History: No Psychological Hx Reported Smoking Status: Current every day smoker Past Alcohol Use History: Occasional Past Drug Use History: None Reported - Past Family History Father Family Medical History: Cancer Additional Family Medical History / Comment(s): Father at the age of 76yrs. Mother Additional Family Medical History / Comment(s): Mother had heart problem. Pt thinks it was a fast heart rate. He states she was hospitalized for this and received two medications that reacted together and caused her . General Exam General appearance: alert, in no apparent distress Head exam: Present: atraumatic, normocephalic Eye exam: Present: normal appearance. Absent: scleral icterus, conjunctival injection ENT exam: Present: normal oropharynx Neck exam: Present: normal inspection Respiratory exam: Present: normal lung sounds bilaterally. Absent: respiratory distress, wheezes, rales, rhonchi, stridor, chest wall tenderness, accessory muscle use, decreased breath sounds Cardiovascular Exam: Present: regular rate, normal rhythm, normal heart sounds. Absent: systolic murmur, diastolic murmur, rubs, gallop GI/Abdominal exam: Present: soft. Absent: distended, tenderness, guarding, rebound, rigid, mass Extremities exam: Present: normal inspection, normal capillary refill. Absent: pedal edema, calf tenderness Back exam: Present: normal inspection. Absent: CVA tenderness (R), CVA tenderness (L) Neurological exam: Present: alert Skin exam: Present: warm, dry, intact, normal color. Absent: rash Course Vital Signs 07/03/19 07/03/19 07/03/19 03:39 03:40 03:46 Temperature 97.4 F L Pulse Rate 67 Respiratory 16 Rate Blood Pressure 226/134 O2 Sat by Pulse 95 95 95 Oximetry 07/03/19 07/03/19 07/03/19 03:50 04:00 04:10 Temperature Pulse Rate 59 L 57 L 61 Respiratory 17 18 20 Rate Blood Pressure 226/134 226/134 211/132 O2 Sat by Pulse 99 100 99 Oximetry 07/03/19 07/03/19 07/03/19 04:20 04:30 04:40 Temperature Pulse Rate 61 62 59 L Respiratory 18 34 H 20 Rate Blood Pressure 211/132 211/132 196/117 O2 Sat by Pulse 100 100 Oximetry 07/03/19 07/03/19 07/03/19 04:50 05:00 05:10 Temperature Pulse Rate 64 56 L Respiratory 23 18 Rate Blood Pressure 196/117 205/123 191/112 O2 Sat by Pulse 99 Oximetry 07/03/19 07/03/19 07/03/19 05:20 05:30 05:41 Temperature Pulse Rate 58 L 56 L 54 L Respiratory 18 18 18 Rate Blood Pressure 191/112 191/112 186/104 O2 Sat by Pulse 100 98 99 Oximetry 07/03/19 07/03/19 07/03/19 05:50 06:00 06:30 Temperature Pulse Rate 56 L 56 L 59 L Respiratory 20 20 18 Rate Blood Pressure 186/104 186/104 173/103 O2 Sat by Pulse 98 99 Oximetry 07/03/19 07/03/19 07:00 07:22 Temperature 98.3 F Pulse Rate 54 L 62 Respiratory 25 H 16 Rate Blood Pressure 182/113 156/102 O2 Sat by Pulse 100 99 Oximetry Disposition Clinical Impression: Hypertension Disposition: HOME SELF-CARE Condition: Fair Instructions (If sedation given, give patient instructions): Hypertension (ED) Prescriptions: Atenolol [Tenormin] 50 mg PO DAILY #30 tab Is patient prescribed a controlled substance at d/c from ED?: No Referrals: Lulu Bejarano MD [Primary Care Provider] - 1-2 days Juan A Melo MD [STAFF PHYSICIAN] - 1-2 days
[2019-07-03 04:06] LABS: Basophils # (A) 0.1 k/uL (0-0.2); Basophils % (A) 2 %; Eosinophils # (A) 0.2 k/uL (0-0.7); Eosinophils % (A) 4 %; HCT 40.9 % (39.0-53.0); HGB 13.3 gm/dL (13.0-17.5); Lymphocytes # (A) 1.8 k/uL (1.0-4.8); Lymphocytes % (A) 29 %; MCH 26.2 pg (25.0-35.0); MCHC 32.6 g/dL (31.0-37.0); MCV 80.2 fL (80.0-100.0); Mean Platelet Volume 10.4; Monocytes # (A) 0.3 k/uL (0-1.0); Monocytes % (A) 5 %; Neutrophils # (A) 3.5 k/uL (1.3-7.7); Neutrophils % (A) 57 %; Platelet Count 145 k/uL (150-450); RDW 15.6 % (11.5-15.5); WBC 6.2 k/uL (3.8-10.6)
--- NOTE | 2019-07-03 04:12 | XR ---
EXAMINATION TYPE: XR chest 2V DATE OF EXAM: 07/03/2019 COMPARISON: 03/31/2019 HISTORY: Chest pain TECHNIQUE: Frontal and lateral views of the chest are obtained. FINDINGS: Heart and mediastinum are normal. Lungs are clear of infiltrate. There is slight blunting left posterior costophrenic angle on the lateral view. Heart size is normal. There are chest leads. T here is no evidence of a pulmonary mass. Bony thorax is intact. IMPRESSION: There is new minimal left side posterior pleural reaction compared to old exam. Normal h eart.
[2019-07-03 04:16] LABS: ALT 23 U/L (21-72); AST 18 U/L (17-59); African American GFR (CKD) >90 (>60 ml/min/1.73 sqM); Alkaline Phosphatase 59 U/L (38-126); Amylase <30 U/L (30-110); Anion Gap 7 mmol/L; Blood Urea Nitrogen 11 mg/dL (9-20); Calcium 8.8 mg/dL (8.4-10.2); Carbon Dioxide 26 mmol/L (22-30); Chloride 109 mmol/L (98-107); Glucose 90 mg/dL (74-99); Magnesium 1.9 mg/dL (1.6-2.3); Potassium 3.7 mmol/L (3.5-5.1); Sodium 142 mmol/L (137-145); Total Bilirubin 0.5 mg/dL (0.2-1.3); Total Protein 6.7 g/dL (6.3-8.2)
[2019-07-03 04:18] LABS: Partial Thromboplastin Time 24.6 sec (22.0-30.0); Prothrombin Time 10.3 sec (9.0-12.0)
[2019-07-03 04:29] LABS: D-Dimer 0.95 mg/L FEU (<0.60)
--- NOTE | 2019-07-03 05:04 | CT ---
EXAMINATION TYPE: CT chest angio for PE DATE OF EXAM: 07/03/2019 COMPARISON: None HISTORY: Elevated D-dimer CT DLP: 798.7 mGycm Automated exposure control for dose reduction was used. CONTRAST: CT Chest for pulmonary embolism performed with with IV Contrast, patient injected with 100 mL of Isov ue 370. FINDINGS: There are 3-D post processed images. The lungs are clear of consolidation. There is no evidence of a pulmonary mass. There is no pleural effusion. Heart size is normal. There is no pericardial effusion. There is minimal subpleural interstitial density at the lung bases consistent with subsegmental atel ectasis. There are numerous enlarged mediastinal lymph nodes that measure up to 2 cm. Thoracic aorta shows no aneurysm or dissection. There is normal contrast opacification of the pulmonary arteries. There are no filling defects. The t horacic spine is intact. There is low-density left adrenal mass that measures 2.3 cm consistent with benign disease. IMPRESSION: No evidence of pulmonary embolism. Mild mediastinal adenopathy. Minimal scarring or subsegmental atel ectasis at the lung bases.
[2019-07-03] MEDS ORDERED: NITROGLYCERIN OINT 1 INCH/GM PACKET TOPICAL STA (05:18)
[2019-07-03] MEDS ORDERED: ENALAPRILAT 1.25 MG/ML 1 ML VIAL IVP STA (05:18)
[2019-07-03] MEDS ORDERED: hydrALAZINE HCL 20 MG/ML 1 ML VIAL IVP STA (06:48)
[2019-07-03 07:25] VITALS: PULSE 62; RESP 16; TEMP 98.3
[2019-07-03 08:04] VITALS: BP 164/104
== END 2019-07-03 08:11 | disposition home or self-care (01) ==
LOC: EC 03:28
DX: I10 Essential (primary) hypertension (principal); I48.91 Unspecified atrial fibrillation; F17.200 Nicotine dependence, unspecified, uncomplicated; Z79.01 Long term (current) use of anticoagulants; Z79.82 Long term (current) use of aspirin; Z79.899 Other long term (current) drug therapy
CPT/HCPCS: 36415; 93005; 85379; 83880; 80053; 82150; 83690; 83735; 84484; 85025; 85610; 85730; 71046; 71275; 99285; 96374; 96375; J0360; Q9967

== ENCOUNTER 2019-07-03 08:17 | Observation (INO) | payer BC ==
[2019-07-03] MEDS ORDERED: IPRATROPIUM-ALBUTEROL 3 ML NEB INHALATION STA (09:02)
[2019-07-03] MEDS ORDERED: hydrALAZINE HCL 20 MG/ML 1 ML VIAL IVP STA (09:03)
[2019-07-03] MEDS ORDERED: ATENOLOL 50 MG TAB PO STA (09:04)
[2019-07-03] MEDS ORDERED: ACETAMINOPHEN TAB 325 MG TAB PO STA (09:12)
--- NOTE | 2019-07-03 09:13 | ED ---
SOB HPI - General Chief Complaint: Shortness of Breath Stated Complaint: SOB Time Seen by Provider: 07/03/19 08:34 Source: patient, RN notes reviewed Mode of arrival: ambulatory Limitations: no limitations - History of Present Illness Initial Comments: 48-year-old male presents back to the emergency department after being discharge chief complaint of dyspnea, hypertension. Patient states he went outside and states that he started feeling short of breath. Patient does admit that he is a daily smoker and is had on-and-off cough congestion and shortness breath over the last week. Patient workup in the emergency department including CT, chest x-ray and lab work which is unremarkable. Patient has current chest pain. Patient states she was given nitro does complain of a headache at this time. Patient states his headache is very mild. Patient denies any fever, chills, abdominal pain nausea vomiting. Patient does have a history of hypertension which he takes Benicar and atenolol. Patient has not taken a dose of atenolol in 24 hours. - Related Data Home Medications Medication Instructions Recorded Confirmed Olmesartan Medoxomil [Benicar] 40 mg PO DAILY 03/31/19 07/03/19 Albuterol Nebulized [Ventolin 2.5 mg INHALATION RT-Q6H PRN 07/03/19 07/03/19 Nebulized] Previous Rx's Medication Instructions Recorded Atenolol [Tenormin] 50 mg PO DAILY #30 tab 07/03/19 Allergies Allergy/AdvReac Type Severity Reaction Status Date / Time No Known Allergies Allergy Verified 07/03/19 09:22 Review of Systems ROS Statement: Those systems with pertinent positive or pertinent negative responses have been documented in the HPI. ROS Other: All systems not noted in ROS Statement are negative. Past Medical History Past Medical History: Atrial Fibrillation, Hyperlipidemia, Hypertension Additional Past Medical History / Comment(s): Pt states he had an arrhythmia found by his PCP about a month ago-he was sent for a cardiology appt-EKG done by PCP not available to roving carrier. Pt states he has an irregular sleep pattern and will wake up at night gasping and his heart is racing. History of Any Multi-Drug Resistant Organisms: None Reported Past Surgical History: Orthopedic Surgery Additional Past Surgical History / Comment(s): right knee arthroscopy, cardioversion 10/20 Past Psychological History: No Psychological Hx Reported Smoking Status: Current every day smoker Past Alcohol Use History: Occasional Past Drug Use History: None Reported - Past Family History Father Family Medical History: Cancer Additional Family Medical History / Comment(s): Father at the age of 76yrs. Mother Additional Family Medical History / Comment(s): Mother had heart problem. Pt thinks it was a fast heart rate. He states she was hospitalized for this and received two medications that reacted together and caused her . General Exam Limitations: no limitations General appearance: alert, in no apparent distress Head exam: Present: atraumatic, normocephalic, normal inspection Eye exam: Present: normal appearance, PERRL, EOMI. Absent: scleral icterus, conjunctival injection, periorbital swelling ENT exam: Present: normal exam, normal oropharynx, mucous membranes moist, TM's normal bilaterally Neck exam: Present: normal inspection, full ROM. Absent: tenderness, meningismus, lymphadenopathy Respiratory exam: Present: wheezes (Minimal). Absent: normal lung sounds bilaterally, respiratory distress, rales, rhonchi, stridor Cardiovascular Exam: Present: regular rate, normal rhythm, normal heart sounds. Absent: systolic murmur, diastolic murmur, rubs, gallop, clicks GI/Abdominal exam: Present: soft, normal bowel sounds. Absent: distended, tenderness, guarding, rebound, rigid Neurological exam: Present: alert, oriented X3 Skin exam: Present: warm, dry, intact, normal color. Absent: rash Course Vital Signs 07/03/19 07/03/19 07/03/19 08:21 09:02 09:20 Temperature 98.2 F 98.3 F Pulse Rate 89 63 64 Respiratory 20 20 Rate Blood Pressure 202/113 173/104 O2 Sat by Pulse 98 98 Oximetry Medical Decision Making - Medical Decision Making Patient complains of chest discomfort, there is no acute EKG changes patient does have lab work prior to discharge which is unremarkable and CTA patient be admitted for chest pain observation - EKG Data EKG Comments: EKG performed at 9:50 normal sinus rhythm rate of 68 [place] 142 QRS 86 QT/QTC 4:30/457 Disposition Clinical Impression: Chest pain, Hypertension Disposition: ADMITTED IP TO THIS [facility] Condition: Fair Referrals: Lulu Bejarano MD [Primary Care Provider] - 1-2 days
[2019-07-03] MEDS ORDERED: HEPARIN SODIUM,PORCINE 5,000 UNIT/ML 1 ML VIAL IV ONE (09:30)
[2019-07-03] MEDS ORDERED: NITROGLYCERIN SL TABS 0.4 MG TAB SUBLINGUAL PRN (09:30)
[2019-07-03] MEDS: HEPARIN SOD,PORK IN 0.45% NACL 25,000 UNIT in 0.45% NACL 1 250ML.BAG IV SCH (09:48)
[2019-07-03] MEDS ORDERED: LOSARTAN 50 MG TAB PO SCH (13:30)
[2019-07-03] MEDS ORDERED: ALPRAZolam 0.25 MG TAB PO PRN (13:32)
[2019-07-03] MEDS ORDERED: HYDROcodone/APAP 5-325MG 1 EACH TAB PO PRN (13:32)
[2019-07-03] MEDS ORDERED: ACETAMINOPHEN TAB 500 MG TAB PO PRN (13:32)
[2019-07-03] MEDS: NICOTINE 14MG/24HR PATCH TRANSDERM SCH (15:11)
[2019-07-03] MEDS: ATORVASTATIN 10 MG TAB PO SCH (15:11)
[2019-07-03] MEDS: LOSARTAN 50 MG TAB PO SCH (15:11)
[2019-07-03] MEDS: ALBUTEROL NEBULIZED 2.5 MG/3 ML INHALATION SCH ×2 (15:33→20:33)
--- NOTE | 2019-07-03 15:50 | HP ---
HISTORY AND PHYSICAL DATE OF SERVICE: 07/03/2019 CHIEF COMPLAINT: Chest pain, shortness of breath. HISTORY OF PRESENT ILLNESS: This 48-year-old gentleman with a past medical history of atrial fibrillation, hypertension, hyperlipidemia, sleep apnea, being followed by Dr. Bejarano in the outpatient setting came to [facility] emergency room yesterday with complaints of shortness of breath and some chest pains which is increasing with respiration. The patient was evaluated in the ER and the initial troponins are negative. The D-dimer is mildly elevated. Patient had CT angio of the chest which showed no evidence of pulmonary embolism. Some atelectasis in the basal area was noted. The patient was apparently discharged home but while in the parking lot, the patient again had chest pains and shortness of breath. The patient came back to the [facility] Emergency Room and was admitted for further evaluation and treatment. Cardiology evaluation in progress at this time. There is no history of fever, rigors or chills. No history of headache, loss of consciousness or seizures at this time. Occasional cough is reported. PAST MEDICAL HISTORY: Atrial fibrillation, hypertension, hyperlipidemia, sleep apnea, history of cardiac arrhythmia. MEDICATIONS: Home medications are: 1. Tenormin 50 mg p.o. daily. 2. Benicar 40 mg p.o. daily. 3. Ventolin 2.5 q.6h p.r.n. 4. Fenofibrate per patient. ALLERGIES: None. FAMILY HISTORY: History of cancer in the family. SOCIAL HISTORY: History of smoking, continued ongoing. REVIEW OF SYSTEMS: ENT: No diminished hearing. No diminished vision. CARDIOVASCULAR as mentioned earlier. RESPIRATORY: As mentioned earlier. GI no nausea or vomiting. no dysuria. NERVOUS SYSTEM: No numbness or weakness. ALLERGY/IMMUNOLOGY: No asthma or hayfever. MUSCULOSKELETAL: As mentioned earlier. HEMATOLOGY/ONCOLOGY: No history of anemia. ENDOCRINE: No history of diabetes or hypothyroidism. CONSTITUTIONAL: As mentioned earlier. DERMATOLOGY: Negative. RHEUMATOLOGY negative. PSYCHIATRY as mentioned earlier. PHYSICAL EXAMINATION: GENERAL: The patient is alert and oriented times three. VITAL SIGNS: Pulse 62, blood pressure 130/90, respiration 18, temperature 97.4, pulse ox 97% on room air. HEENT: Conjunctivae normal. Oral mucosa moist. NECK is no jugular venous distention. No carotid bruit. No lymph node enlargement. Cardiovascular system: S1, S2 muffled. No S3, no S4. RESPIRATORY: Breath sounds diminished in the bases. A few rhonchi. No crackles. ABDOMEN: Soft, nontender. No mass palpable. LEGS: No edema. No swelling. NERVOUS SYSTEM: As mentioned earlier. Moves all 4 limbs. No focal motor or sensory deficits. LYMPHATICS: No lymph nodes palpable in the neck, axillae or groin. No lymph node SKIN: No ulcers, no rashes and no bleeding. JOINTS: No active deforming arthropathy. LABS: At this time shows: The previous recent labs done last night, platelets are 145. D- dimer is 0.95 and troponins are negative and LDL is 132. The EKG personally reviewed by me showed minimal ST-T changes. ASSESSMENT: 1. Chest pain, shortness of breath, possible unstable angina. 2. Possible bibasilar atelectasis. 3. Rule out pericarditis, acute. 4. Atrial fibrillation, paroxysmal. 5. Hypertension. 6. Hyperlipidemia. 7. Sleep apnea. 8. History of degenerative joint disease, right knee arthroscopy. 9. Continued ongoing nicotine dependence. 10.Obesity with body mass index 39.6. RECOMMENDATIONS AND DISCUSSION: In this 48-year-old gentleman who presented with multiple complex medical issues, we will monitor the patient closely, continue the current medications. The patient had a workup for PE which was negative at this time. I recommend cardiology evaluation, rule out myocardial infarction. Unstable angina protocol. Possible stress test. Otherwise, I would also recommend a 2D echo with Doppler. I would also recommend the ESR and CRP and consider the possibility of pericarditis as well. The prognosis is guarded because of multiple complex medical issues. Further recommendations to follow. Discussed with the patient who understands and agrees. Further recommendations to follow. Copy of this dictation forwarded to Dr. Bejarano who is the primary physician. MMODL / IJN: [id number] /
[2019-07-03] MEDS ORDERED: HEPARIN SODIUM,PORCINE 5,000 UNIT/ML 1 ML VIAL IV STA (17:27)
--- NOTE | 2019-07-03 19:50 | CONS ---
CONSULTATION This is a 48-year-old gentleman with a diagnosis of hypertension and paroxysmal atrial fibrillation who used to see Dr. Reynolds up until a [id number]-half ago in our office. Apparently in October of this year he was in the [place] area and developed atrial fibrillation and underwent electrical cardioversion. Following that, he has not been on any anticoagulation. He presented to the hospital last night actually complaining of shortness of breath. He did not have any chest pain, had no diaphoresis, palpitations, syncope or near syncope. He was in a sinus rhythm. His initial troponin was normal. His D-dimer was elevated. A CT angiography was performed and he was sent home and he went up to the car and came back complaining of shortness of breath. Therefore, he was hospitalized. At the time of my evaluation he is comfortable, resting. Has no chest pain, shortness of breath or palpitation. He indicated to me that his shortness of breath came on gradually and he also complained of some sharp pain in the chest that lasts maybe 1-3 seconds and then goes away on its own. His blood pressure was also elevated when he came in and he usually takes Benicar 40 mg daily and also atenolol. PAST MEDICAL HISTORY: 1. Remarkable for sleep apnea syndrome, but he is not wearing his CPAP right now. 2. Paroxysmal atrial fibrillation status post cardioversion in the [place] area in October. 3. Hypertension. 4. Hyperlipidemia. He is status post right total knee arthroscopy and electrical cardioversion which was performed in October of this year. ALLERGIES: None. MEDICATIONS: Include atenolol 50 mg daily, Benicar 40 mg daily, albuterol inhaler. PHYSICAL EXAMINATION: Blood pressure is 140/84, pulse rate is about 70. HEENT unremarkable. Fundus was not examined by me. Neck is supple. No JVD. I do not hear a carotid bruit. There is no thyromegaly. Heart exam reveals S1, S2 heard normally. There is no rub, murmur or gallop. Lungs are clear. Abdomen is soft, nontender. Lower extremities reveal normal pulses. No edema. Central nervous system is normal. EKG revealed sinus mechanism, nonspecific T-wave flattening. LABORATORY: Two sets of troponins were unremarkable. CT angiography was negative for any aortic pathology or any pulmonary embolism. IMPRESSION: 1. Shortness of breath of unclear etiology. 2. Atypical chest pain. 3. History of paroxysmal atrial fibrillation, now in sinus rhythm. RECOMMENDATIONS: I am recommending that we resume his antihypertensives. I will use losartan 100 mg p.o. and atenolol 50 mg daily and see how he does. I will continue IV heparin, get additional troponins. If all these 3 are normal, then he can be discharged tomorrow and have stress test as an outpatient but if he has any symptoms, I will re-evaluate him and consider a stress test on this admission. I discussed my thoughts in detail with the patient, explained to him that the CT scan was negative and 2 sets of troponins are unremarkable and the EKG was unremarkable. Thank you very much for the consult. CHRISTA / JESSI: [id number] /
[2019-07-03] MEDS ORDERED: TEMAZEPAM 15 MG CAP PO PRN (21:00)
[2019-07-04] MEDS ORDERED: hydrALAZINE HCL 20 MG/ML 1 ML VIAL IVP ONE (00:30)
[2019-07-04] MEDS: HEPARIN SOD,PORK IN 0.45% NACL 25,000 UNIT in 0.45% NACL 1 250ML.BAG IV SCH (00:49)
[2019-07-04] MEDS: ALBUTEROL NEBULIZED 2.5 MG/3 ML INHALATION SCH ×2 (01:17→07:39)
[2019-07-04] MEDS ORDERED: amLODIPine 5 MG TAB PO STA ×2 (03:22→06:29)
[2019-07-04] MEDS ORDERED: LABETALOL 5 MG/ML VIAL MDV IVP ONE (03:30)
[2019-07-04] MEDS: LOSARTAN 50 MG TAB PO SCH (06:37)
[2019-07-04 07:21] LABS: Basophils # (A) 0.1 k/uL (0-0.2); Basophils % (A) 1 %; Eosinophils # (A) 0.1 k/uL (0-0.7); Eosinophils % (A) 2 %; HCT 42.3 % (39.0-53.0); HGB 13.5 gm/dL (13.0-17.5); Hypochromasia Slight; Lymphocytes # (A) 1.8 k/uL (1.0-4.8); Lymphocytes % (A) 27 %; MCHC 31.9 g/dL (31.0-37.0); MCV 81.5 fL (80.0-100.0); Mean Platelet Volume 9.2; Monocytes # (A) 0.3 k/uL (0-1.0); Monocytes % (A) 4 %; Neutrophils # (A) 4.1 k/uL (1.3-7.7); Neutrophils % (A) 62 %; Platelet Count 161 k/uL (150-450); RBC 5.19 m/uL (4.30-5.90); RDW 15.2 % (11.5-15.5); WBC 6.6 k/uL (3.8-10.6)
[2019-07-04] MEDS ORDERED: PANTOPRAZOLE 40 MG TABLET PO SCH (07:30)
[2019-07-04 07:40] LABS: African American GFR (CKD) >90 (>60 ml/min/1.73 sqM); Anion Gap 7 mmol/L; Blood Urea Nitrogen 8 mg/dL (9-20); Calcium 9.2 mg/dL (8.4-10.2); Carbon Dioxide 29 mmol/L (22-30); Chloride 108 mmol/L (98-107); Cholesterol 219 mg/dL (<200); Glucose 92 mg/dL (74-99); HDL Cholesterol 45 mg/dL (40-60); LDL Cholesterol,Calculated 153 mg/dL (0-99); Non-African American GFR(CKD) >90 (>60 ml/min/1.73 sqM); Potassium 3.3 mmol/L (3.5-5.1); Sodium 144 mmol/L (137-145); Triglycerides 103 mg/dL (<150)
--- NOTE | 2019-07-04 07:44 | CONS ---
CONSULTATION This is a gentleman who was seen by me yesterday with hypertension and also had some questionable sharp chest pain. His troponin levels have all been normal. He has had some elevated blood pressure requiring some intravenous labetalol. He also had a CT angio which revealed no evidence of any pulmonary embolism and no evidence of any aortic pathology. His blood pressure control has been optimized this morning. He is doing well at the time of my evaluation, asymptomatic. Vital signs are stable. Blood pressure is 160/80, pulse rate is 70 per minute. No JVD or carotid bruit. S1-S2 heard normally. Lungs are clear. Abdomen and lower extremity exam is otherwise unchanged. I am recommending that we can discharge him on a combination of atenolol, amlodipine, and losartan. We will increase activity. If he has no further symptoms, he can be discharged and any stress testing can be performed as an outpatient. He also has a paroxysmal atrial fibrillation history for which he underwent cardioversion in October of this year and he sees a cinnamon grinder in the [place] area. I will place him on amlodipine, losartan, atenolol, increase activity, and if blood pressure is good and no further symptoms, he can be discharged today. MMODL / IJN: [id number] /
[2019-07-04] MEDS: ATORVASTATIN 10 MG TAB PO SCH (08:52)
[2019-07-04] MEDS: NICOTINE 14MG/24HR PATCH TRANSDERM SCH (08:57)
[2019-07-04] MEDS ORDERED: ATENOLOL 50 MG TAB PO SCH (09:00)
[2019-07-04] MEDS ORDERED: ASPIRIN 325 MG TAB PO SCH (09:00)
[2019-07-04] MEDS ORDERED: POTASSIUM CHLORIDE ER 20 MEQ TAB.ER PO STA ×2 (10:56→12:09)
[2019-07-04 12:28] VITALS: BP 168/100; PULSE 62; RESP 16; TEMP 98.4
[2019-07-05] MEDS ORDERED: amLODIPine 5 MG TAB PO SCH (09:00)
--- NOTE | 2019-07-05 10:54 | DS ---
DISCHARGE SUMMARY DATE OF SERVICE: 07/05/2019. FINAL DIAGNOSIS: 1. Chest pain, shortness of breath, myocardial infarction ruled out. 2. Possible bibasilar atelectasis. No evidence of pulmonary embolism. 3. Atrial fibrillation paroxysmal. 4. Hypertension. 5. Hyperlipidemia. 6. Sleep apnea. 7. History of degenerative joint disease, right knee arthroscopy. 8. Continued ongoing nicotine dependence. 9. Obesity with body mass index of 39.6. DISCHARGE DISPOSITION: The patient will be discharged in stable condition with guarded prognosis. HISTORY OF PRESENT ILLNESS: This 48-year-old gentleman with a past medical history of multiple medical problems was admitted with chest pain. Myocardial infarction ruled out. Cardiology saw the patient and recommended outpatient followup and workup. Otherwise evaluation showed elevated cholesterol is LDL 153. The patient will be discharged in stable condition with guarded prognosis with the following advice and medications. Please note patient had a CTA on July 03 which was showing no evidence of any pulmonary embolism. On exam, vitals are stable. Cardiovascular: S1, S2. Abdomen soft. Nervous system: No focal deficits. DISCHARGE ADVICE AND MEDICATIONS: 1. Discharge diet is cardiac diet. 2. Activity limited until follow up. 3. Followup follow up with Dr. Bejarano 2-3 days. 4. Follow up with Cardiology as recommended. DISCHARGE MEDICATIONS: 1. Benicar 40 mg p.o. daily. 2. Motrin p.r.n. 3. [place]ide 5 mg Q 5 times daily. 4. Ventolin 2.5 q.6h p.r.n. 5. Habitrol 14 daily. 6. Lipitor 10 mg p.o. daily. 7. Motrin 200 mg q.8 p.r.n. 8. Norvasc 5 mg p.o. daily. 9. Tenormin 50 mg p.o. daily. Once again the patient is being discharged in stable condition with guarded prognosis. MMODL / IJN: [id number] /
--- NOTE | 2019-07-05 12:01 | ECHOF ---
Referral Reason:Dyspnea, chest pain MEASUREMENTS -------- HEIGHT: 175.3 cm WEIGHT: 121.6 kg BP: 173/104 RVIDd: 4.3 cm (< 3.3) IVSd: 2.1 cm (0.6 - 1.1) LVIDd: 4.4 cm (3.9 - 5.3) LVPWd: 2.3 cm (0.6 - 1.1) IVSs: 2.6 cm LVIDs: 3.1 cm LVPWs: 3.1 cm LAESV Index (A-L): 44.10 ml/m Ao Diam: 4.0 cm (2.0 - 3.7) AV Cusp: 1.9 cm (1.5 - 2.6) MV EXCURSION: 15.965 mm (> 18.000) MV EF SLOPE: 87 mm/s (70 - 150) EPSS: 0.8 cm MV E Derrell: 1.39 m/s MV DecT: 259 ms MV A Derrell: 0.45 m/s MV E/A Ratio: 3.07 AR PHT: 355 ms RAP: 5.00 mmHg RVSP: 51.39 mmHg TAPSE: 21.87 mm FINDINGS -------- Sinus rhythm. This was a technically difficult study with suboptimal apical views. The left ventricular size is normal. There is severe concentric left ventricular hypertrophy. Ove rall left ventricular systolic function is normal with, an EF between 55 - 60 %. Increased Lap Grad e II Diastolic Dysfunction. The right ventricle is severely enlarged. The right ventricular systolic function is mildly impaire d. LA is severely dilated >40 ml/m2 RA appears enlarged. 5.0mg of Lumason was utilized for enhancement of images Interatrial and interventricular septum intact. The aortic valve was not well visualized. Trace to mild aortic regurgitation. There is no evidenc e of aortic stenosis. Mild mitral annular calcification present. Moderate mitral regurgitation is present. Moderate tricuspid regurgitation present. There is moderate pulmonary hypertension. The right angelica tricular systolic pressure, as measured by Doppler, is 51.39mmHg. There is no pulmonic regurgitation present. The aortic root is mildy dilated. IVC Not well visulized. Echo free space represents a pericardial fat pad. There is no pericardial effusion. CONCLUSIONS -------- 1. Sinus rhythm. 2. This was a technically difficult study with suboptimal apical views. 3. The left ventricular size is normal. 4. There is severe concentric left ventricular hypertrophy. 5. Overall left ventricular systolic function is normal with, an EF between 55 - 60 %. 6. Increased Lap Grade II Diastolic Dysfunction. 7. The right ventricle is severely enlarged. 8. The right ventricular systolic function is mildly impaired. 9. LA is severely dilated >40 ml/m2 10. RA appears enlarged. 11. 5.0mg of Lumason was utilized for enhancement of images 12. Interatrial and interventricular septum intact. 13. The aortic valve was not well visualized. 14. Trace to mild aortic regurgitation. 15. There is no evidence of aortic stenosis. 16. Mild mitral annular calcification present. 17. Moderate mitral regurgitation is present. 18. Moderate tricuspid regurgitation present. 19. There is moderate pulmonary hypertension. 20. The right ventricular systolic pressure, as measured by Doppler, is 51.39mmHg. 21. There is no pulmonic regurgitation present. 22. The aortic root is mildy dilated. 23. IVC Not well visulized. 24. Echo free space represents a pericardial fat pad. 25. There is no pericardial effusion. GRAIN COMBINE DRIVER: Maria Luisa Guallpa RDCS
== END 2019-07-04 12:45 | disposition home or self-care (01) ==
LOC: EC 08:17 → 1SOBS 10:40
PROVIDERS: ADMIT Hospitalist; ATTEND Hospitalist
DX: R07.89 Other chest pain (principal); R06.02 Shortness of breath; I10 Essential (primary) hypertension; I48.0 Paroxysmal atrial fibrillation; R79.89 Other specified abnormal findings of blood chemistry; J98.11 Atelectasis; I35.1 Nonrheumatic aortic (valve) insufficiency; E78.5 Hyperlipidemia, unspecified; G47.30 Sleep apnea, unspecified; G44.40 Drug-induced headache, not elsewhere classified, not intractable; T46.3X5A Adverse effect of coronary vasodilators, initial encounter; I49.9 Cardiac arrhythmia, unspecified; M17.11 Unilateral primary osteoarthritis, right knee; E66.9 Obesity, unspecified; Z68.39 Body mass index [BMI] 39.0-39.9, adult; F17.200 Nicotine dependence, unspecified, uncomplicated; Z79.899 Other long term (current) drug therapy; Z80.9 Family history of malignant neoplasm, unspecified; Z82.49 Family history of ischemic heart disease and other diseases of the circulatory system
CPT/HCPCS: 93005 ×2; 96366 ×3; 96375 ×2; 96376 ×3; 96365; 99285; 94640 ×4; 94760; 93306; 80061; 80048; 85652; 84484; 85025; 85730 ×2; 86140; G0378 ×2; J0360 ×2; J1644 ×3; Q9950

== ENCOUNTER 2019-09-19 12:39 | Inpatient (IN) | payer BC ==
--- NOTE | 2019-09-19 13:10 | ED ---
General Adult HPI - General Chief complaint: Dizziness Stated complaint: SOB/lightheaded Time Seen by Provider: 09/19/19 12:45 Source: patient Mode of arrival: ambulatory Limitations: no limitations - History of Present Illness Initial comments: The patient is a 49-year-old male with past history of paroxysmal A. fib and hypertension who presents to the emergency room with reported generalized weakness. He states for the past week he has had generalized weakness and shortness of breath. He admits to palpitations. Symptoms are worse with exertion. Reports a presyncopal sensation. He does have a history of atrial fibrillation and was cardioverted in October 2018. Currently takes aspirin for anticoagulation. He is also on atenolol and losartan. He sees Dr. Samayoa in office. Reported that last year he had an echo performed. He was was a follow-up stress testing however he was unable to follow up in office. He denies asthma or COPD. He has been using his daughter's nebulizer for shortness of breath and states does not help his symptoms. He denies any cough or hemoptysis. No chest pain. Denies any abdominal pain or changes in his bowel or bladder habits. No recent medication changes. Denies any fevers or chills. Denies history of DVT or PE. No calf pain or swelling. Does admit to minimal pedal edema. No history of congestive heart rate. No alleviating, precipitating or modifying factors. - Related Data Home Medications Medication Instructions Recorded Confirmed Garlic 1 tab PO DAILY 09/19/19 09/19/19 Multivitamins, Thera [Multivitamin 1 tab PO DAILY 09/19/19 09/19/19 (formulary)] Previous Rx's Medication Instructions Recorded Apixaban [Eliquis] 5 mg PO BID #60 tab 09/21/19 Atenolol 25 mg PO BID #60 tab 09/21/19 Pravastatin Sodium [Pravachol] 20 mg PO DAILY #30 tab 09/21/19 amLODIPine [Norvasc] 10 mg PO DAILY #30 tablet 09/21/19 hydrALAZINE HCL [Apresoline] 25 mg PO BID #60 tab 09/21/19 Flecainide [Tambocor] 50 mg PO Q12HR #60 tab 09/22/19 Valsartan [Diovan] 320 mg PO DAILY #30 tab 09/22/19 Allergies Allergy/AdvReac Type Severity Reaction Status Date / Time No Known Allergies Allergy Verified 09/19/19 15:53 Review of Systems ROS Statement: Those systems with pertinent positive or pertinent negative responses have been documented in the HPI. ROS Other: All systems not noted in ROS Statement are negative. 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 Pt states he has an irregular sleep pattern and will wake up at night gasping and his heart is racing. arthritis History of Any Multi-Drug Resistant Organisms: None Reported Past Surgical History: Orthopedic Surgery Additional Past Surgical History / Comment(s): right knee arthroscopy, cardioversion 10/20 Past Anesthesia/Blood Transfusion Reactions: No Reported Reaction Past Psychological History: No Psychological Hx Reported Smoking Status: Current every day smoker Past Alcohol Use History: Occasional Past Drug Use History: None Reported - Past Family History Father Family Medical History: Cancer Additional Family Medical History / Comment(s): Father at the age of 76yrs. Mother Additional Family Medical History / Comment(s): Mother had heart murmur. General Exam Limitations: no limitations General appearance: alert, in no apparent distress Head exam: Present: atraumatic, normocephalic, normal inspection Eye exam: Present: normal appearance, PERRL, EOMI. Absent: scleral icterus, conjunctival injection, periorbital swelling ENT exam: Present: normal exam, mucous membranes moist Neck exam: Present: normal inspection. Absent: tenderness, meningismus, lymphadenopathy Respiratory exam: Present: normal lung sounds bilaterally. Absent: respiratory distress, wheezes, rales, rhonchi, stridor Cardiovascular Exam: Present: tachycardia, irregular rhythm, normal heart sounds. Absent: systolic murmur, diastolic murmur, rubs, gallop, clicks GI/Abdominal exam: Present: soft, normal bowel sounds. Absent: distended, tenderness, guarding, rebound, rigid Extremities exam: Present: full ROM, normal capillary refill, pedal edema. Absent: tenderness, joint swelling, calf tenderness Back exam: Present: normal inspection Neurological exam: Present: alert, oriented X3, CN II-XII intact Psychiatric exam: Present: normal affect, normal mood Skin exam: Present: warm, dry, intact, normal color. Absent: rash Course Vital Signs 09/19/19 09/19/19 09/19/19 12:44 12:55 13:00 Temperature 97.7 F Pulse Rate 84 105 H Pulse Rate [ Pulse Oximetery ] Respiratory 20 31 H 22 Rate Blood Pressure 177/107 Blood Pressure [Right Arm Supine] O2 Sat by Pulse 100 Oximetry 09/19/19 09/19/19 09/19/19 13:10 13:20 13:30 Temperature Pulse Rate 89 93 80 Pulse Rate [ Pulse Oximetery ] Respiratory 10 L 18 22 Rate Blood Pressure Blood Pressure [Right Arm Supine] O2 Sat by Pulse Oximetry 09/19/19 09/19/19 09/19/19 13:40 13:50 14:00 Temperature Pulse Rate 79 91 Pulse Rate [ Pulse Oximetery ] Respiratory 16 7 L Rate Blood Pressure 159/117 Blood Pressure [Right Arm Supine] O2 Sat by Pulse Oximetry 09/19/19 09/19/19 09/19/19 14:10 14:20 14:30 Temperature Pulse Rate 99 89 93 Pulse Rate [ Pulse Oximetery ] Respiratory 24 22 24 Rate Blood Pressure 172/140 172/140 172/140 Blood Pressure [Right Arm Supine] O2 Sat by Pulse 98 99 99 Oximetry 09/19/19 09/19/19 09/19/19 14:40 14:50 14:58 Temperature Pulse Rate 94 80 79 Pulse Rate [ Pulse Oximetery ] Respiratory 19 23 16 Rate Blood Pressure 172/140 172/140 162/112 Blood Pressure [Right Arm Supine] O2 Sat by Pulse 99 98 100 Oximetry 09/19/19 09/19/19 09/19/19 15:00 15:10 15:40 Temperature Pulse Rate 79 90 77 Pulse Rate [ Pulse Oximetery ] Respiratory 15 21 23 Rate Blood Pressure 162/112 162/112 162/112 Blood Pressure [Right Arm Supine] O2 Sat by Pulse 99 100 99 Oximetry 09/19/19 09/19/19 09/19/19 16:30 16:32 16:33 Temperature 98.0 F Pulse Rate Pulse Rate [ 86 Pulse Oximetery ] Respiratory 16 20 Rate Blood Pressure 162/112 168/140 Blood Pressure 180/98 [Right Arm Supine] O2 Sat by Pulse 99 Oximetry 09/19/19 09/19/19 09/19/19 17:06 17:20 17:40 Temperature Pulse Rate Pulse Rate [ Pulse Oximetery ] Respiratory 16 Rate Blood Pressure 183/126 157/111 167/111 Blood Pressure [Right Arm Supine] O2 Sat by Pulse Oximetry 09/19/19 17:51 Temperature Pulse Rate 78 Pulse Rate [ Pulse Oximetery ] Respiratory Rate Blood Pressure 173/129 Blood Pressure [Right Arm Supine] O2 Sat by Pulse Oximetry EKG Findings - EKG Comments: EKG Findings:: EKG demonstrates atrial fibrillation with a rate of 95. QRS 82. QTC of 442. There are frequent PVCs. No acute ST segment elevations or depressions concerning for ischemic changes Medical Decision Making - Medical Decision Making Upon arrival the patient is placed in room 6. A thorough history and physical exam is performed. Peripheral IV is established. I recommended laboratory studies and a chest x-ray. CBC is remarkable for a platelet count of 132. The patient has a history of chronic thrombocytopenia. Coagulation studies are normal. BNP elevated at 1280. Chest x-ray demonstrates no acute intra-thoracic process. The patient had a 12-lead EKG performed which demonstrates atrial fibrillation. I did inform the patient that it does appear he is back in A. fib. This may be why he is symptomatic. Telemetry monitoring demonstrated the patient's heart rate to be anywhere from 85-120. I discussed diagnosis, differential and treatment options. At this time the patient will be anticoagulated with [place]. He has taken this medication before without ill side effects. I recommended hospital admission for the patient's recurrent A. fib. The patient did agree to this. I discussed the case with Dr. Capone who accepted admission. The patient was given 20 mg of labetalol for his hypertension. He continued to have high blood pressure and therefore I did give him a dose of clonidine. The patient will be transferred to the floor in stable condition - Lab Data Result diagrams: 09/21/19 05:16 09/19/19 13:04 Lab Results 09/19/19 09/19/19 09/19/19 Range/Units 13:04 13:04 13:04 WBC 5.6 (3.8-10.6) k/uL RBC 5.52 (4.30-5.90) m/uL Hgb 14.4 (13.0-17.5) gm/dL Hct 45.8 (39.0-53.0) % MCV 82.9 (80.0-100.0) fL MCH 26.0 (25.0-35.0) pg MCHC 31.4 (31.0-37.0) g/dL RDW 15.5 (11.5-15.5) % Plt Count 132 L (150-450) k/uL Neutrophils % 58 % Lymphocytes % 28 % Monocytes % 7 % Eosinophils % 2 % Basophils % 2 % Neutrophils # 3.3 (1.3-7.7) k/uL Lymphocytes # 1.6 (1.0-4.8) k/uL Monocytes # 0.4 (0-1.0) k/uL Eosinophils # 0.1 (0-0.7) k/uL Basophils # 0.1 (0-0.2) k/uL Manual Slide Review Hypochromasia Slight PT 9.7 (9.0-12.0) sec INR 0.9 (<1.2) APTT 22.2 (22.0-30.0) sec Sodium 142 (137-145) mmol/L Potassium 4.4 (3.5-5.1) mmol/L Chloride 107 (98-107) mmol/L Carbon Dioxide 28 (22-30) mmol/L Anion Gap 7 mmol/L BUN 12 (9-20) mg/dL Creatinine 0.61 L (0.66-1.25) mg/dL Est GFR (CKD-EPI)AfAm >90 (>60 ml/min/1.73 sqM) Est GFR (CKD-EPI)NonAf >90 (>60 ml/min/1.73 sqM) Glucose 106 H (74-99) mg/dL Estimated Ave Glu mg/dL Hemoglobin A1c (4.0-6.0) % Calcium 9.1 (8.4-10.2) mg/dL Total Bilirubin 0.6 (0.2-1.3) mg/dL AST 24 (17-59) U/L ALT 23 (4-49) U/L Alkaline Phosphatase 71 (38-126) U/L Troponin I (0.000-0.034) ng/mL NT-Pro-B Natriuret Pep pg/mL Total Protein 6.9 (6.3-8.2) g/dL Albumin 4.1 (3.5-5.0) g/dL TSH (0.465-4.680) mIU/L 09/19/19 09/19/19 09/19/19 Range/Units 13:04 13:04 13:04 WBC (3.8-10.6) k/uL RBC (4.30-5.90) m/uL Hgb (13.0-17.5) gm/dL Hct (39.0-53.0) % MCV (80.0-100.0) fL MCH (25.0-35.0) pg MCHC (31.0-37.0) g/dL RDW (11.5-15.5) % Plt Count (150-450) k/uL Neutrophils % % Lymphocytes % % Monocytes % % Eosinophils % % Basophils % % Neutrophils # (1.3-7.7) k/uL Lymphocytes # (1.0-4.8) k/uL Monocytes # (0-1.0) k/uL Eosinophils # (0-0.7) k/uL Basophils # (0-0.2) k/uL Manual Slide Review Hypochromasia PT (9.0-12.0) sec INR (<1.2) APTT (22.0-30.0) sec Sodium (137-145) mmol/L Potassium (3.5-5.1) mmol/L Chloride (98-107) mmol/L Carbon Dioxide (22-30) mmol/L Anion Gap mmol/L BUN (9-20) mg/dL Creatinine (0.66-1.25) mg/dL Est GFR (CKD-EPI)AfAm (>60 ml/min/1.73 sqM) Est GFR (CKD-EPI)NonAf (>60 ml/min/1.73 sqM) Glucose (74-99) mg/dL Estimated Ave Glu mg/dL 117 Hemoglobin A1c 5.7 (4.0-6.0) % Calcium (8.4-10.2) mg/dL Total Bilirubin (0.2-1.3) mg/dL AST (17-59) U/L ALT (4-49) U/L Alkaline Phosphatase (38-126) U/L Troponin I <0.012 (0.000-0.034) ng/mL NT-Pro-B Natriuret Pep 1280 pg/mL Total Protein (6.3-8.2) g/dL Albumin (3.5-5.0) g/dL TSH (0.465-4.680) mIU/L 09/19/19 09/21/19 Range/Units 13:20 05:16 WBC 5.3 (3.8-10.6) k/uL RBC 5.02 (4.30-5.90) m/uL Hgb 13.5 (13.0-17.5) gm/dL Hct 42.6 (39.0-53.0) % MCV 84.7 (80.0-100.0) fL MCH 26.8 (25.0-35.0) pg MCHC 31.7 (31.0-37.0) g/dL RDW 15.3 (11.5-15.5) % Plt Count 148 L (150-450) k/uL Neutrophils % 55 % Lymphocytes % 33 % Monocytes % 5 % Eosinophils % 3 % Basophils % 1 % Neutrophils # 2.9 (1.3-7.7) k/uL Lymphocytes # 1.7 (1.0-4.8) k/uL Monocytes # 0.3 (0-1.0) k/uL Eosinophils # 0.1 (0-0.7) k/uL Basophils # 0.0 (0-0.2) k/uL Manual Slide Review Performed Hypochromasia Marked PT (9.0-12.0) sec INR (<1.2) APTT (22.0-30.0) sec Sodium (137-145) mmol/L Potassium (3.5-5.1) mmol/L Chloride (98-107) mmol/L Carbon Dioxide (22-30) mmol/L Anion Gap mmol/L BUN (9-20) mg/dL Creatinine (0.66-1.25) mg/dL Est GFR (CKD-EPI)AfAm (>60 ml/min/1.73 sqM) Est GFR (CKD-EPI)NonAf (>60 ml/min/1.73 sqM) Glucose (74-99) mg/dL Estimated Ave Glu mg/dL Hemoglobin A1c (4.0-6.0) % Calcium (8.4-10.2) mg/dL Total Bilirubin (0.2-1.3) mg/dL AST (17-59) U/L ALT (4-49) U/L Alkaline Phosphatase (38-126) U/L Troponin I (0.000-0.034) ng/mL NT-Pro-B Natriuret Pep pg/mL Total Protein (6.3-8.2) g/dL Albumin (3.5-5.0) g/dL TSH 1.460 (0.465-4.680) mIU/L Disposition Clinical Impression: Atrial fibrillation, Acute respiratory insufficiency, Hypertension Disposition: ADMITTED IP TO THIS HOSP Condition: Stable Is patient prescribed a controlled substance at d/c from ED?: No Decision to Admit Reason: Admit from EC Decision Date: 09/19/19 Decision Time: 15:45
[2019-09-19] MEDS ORDERED: SODIUM CHLORIDE 0.9% 500 ML 500 ML IV STA (13:39)
[2019-09-19 14:03] LABS: INR 0.9 (<1.2); Partial Thromboplastin Time 22.2 sec (22.0-30.0); Prothrombin Time 9.7 sec (9.0-12.0)
[2019-09-19 14:04] LABS: ALT 23 U/L (4-49); AST 24 U/L (17-59); African American GFR (CKD) >90 (>60 ml/min/1.73 sqM); Albumin 4.1 g/dL (3.5-5.0); Alkaline Phosphatase 71 U/L (38-126); Anion Gap 7 mmol/L; Basophils # (A) 0.1 k/uL (0-0.2); Basophils % (A) 2 %; Blood Urea Nitrogen 12 mg/dL (9-20); Calcium 9.1 mg/dL (8.4-10.2); Carbon Dioxide 28 mmol/L (22-30); Chloride 107 mmol/L (98-107); Eosinophils # (A) 0.1 k/uL (0-0.7); Eosinophils % (A) 2 %; Glucose 106 mg/dL (74-99); HCT 45.8 % (39.0-53.0); HGB 14.4 gm/dL (13.0-17.5); Hypochromasia Slight; Lymphocytes # (A) 1.6 k/uL (1.0-4.8); Lymphocytes % (A) 28 %; MCHC 31.4 g/dL (31.0-37.0); MCV 82.9 fL (80.0-100.0); Mean Platelet Volume 9.7; Monocytes # (A) 0.4 k/uL (0-1.0); Monocytes % (A) 7 %; Neutrophils # (A) 3.3 k/uL (1.3-7.7); Neutrophils % (A) 58 %; Non-African American GFR(CKD) >90 (>60 ml/min/1.73 sqM); Platelet Count 132 k/uL (150-450); Potassium 4.4 mmol/L (3.5-5.1); RBC 5.52 m/uL (4.30-5.90); RDW 15.5 % (11.5-15.5); Sodium 142 mmol/L (137-145); Total Bilirubin 0.6 mg/dL (0.2-1.3); Total Protein 6.9 g/dL (6.3-8.2); WBC 5.6 k/uL (3.8-10.6)
--- NOTE | 2019-09-19 14:19 | XR ---
EXAMINATION TYPE: XR chest 2V DATE OF EXAM: 09/19/2019 COMPARISON: July 03, 2019 HISTORY: Chest pain TECHNIQUE: Frontal and lateral views of the chest are obtained. FINDINGS: There is no focal air space opacity. No evidence for pneumothorax. No pleural effusion. The cardiac silhouette size is within normal limits. The osseous structures are grossly intact. IMPRESSION: 1. No acute cardiopulmonary process.
[2019-09-19] MEDS ORDERED: APIXABAN 5 MG TAB PO STA (15:40)
[2019-09-19] MEDS ORDERED: NALOXONE 0.4 MG/ML 1 ML VIAL IV PRN (15:48)
[2019-09-19] MEDS ORDERED: LABETALOL 5 MG/ML VIAL MDV IVP STA (16:09)
[2019-09-19] MEDS ORDERED: cloNIDine HCL 0.1 MG TAB PO STA (17:09)
[2019-09-19] MEDS: MULTIVITAMINS, THERA 1 EACH TAB PO SCH (18:47)
[2019-09-19] MEDS ORDERED: LOSARTAN 50 MG TAB PO SCH (21:00)
[2019-09-19] MEDS: ATENOLOL 25 MG TAB PO SCH (21:12)
[2019-09-20] MEDS: ATENOLOL 25 MG TAB PO SCH ×2 (05:12→20:25)
[2019-09-20] MEDS: LOSARTAN 50 MG TAB PO SCH (05:12)
[2019-09-20] MEDS: PRAVASTATIN SODIUM 20 MG TAB PO SCH (08:07)
[2019-09-20] MEDS: MULTIVITAMINS, THERA 1 EACH TAB PO SCH (08:07)
--- NOTE | 2019-09-20 08:48 | P.CRDCN ---
History of Present Illness Consult date: 09/20/19 Requesting physician: Fer Capone Consult reason: atrial fibrillation Chief complaint: Weakness, short of breath History of present illness: This is a 49-year-old -[place] gentleman with history of hyperlipidemia, hypertension, paroxysmal atrial fibrillation for which the patient states he underwent a cardioversion approximately a year ago, he states that he was put on Xarelto at that time, he ultimately stopped taking his Xarelto because he did not like the fact that there is no reversal agent for, he took aspirin for a short period of time and then discontinued that as well. He does smoke cigarettes, he denies any alcohol, he drinks one cup of coffee per day. Patient presents to the hospital on this occasion with symptoms of progressive weakness and tiredness with associated mild shortness of breath. He states that he took a breathing treatment at home because of the shortness of breath, still continued in general not to feel well and came to the hospital for further evaluation and treatment. His initial EKG on presentation here showed atrial fibrillation with a heart rate in the 90s. Chest x-ray did not reveal any acute cardiopulmonary process. Blood pressure on arrival here 177/107, heart rate in the 90s on admission, 100% O2 sat. Blood pressure this morning 173/106, heart rate in the 50s, patient is in a normal sinus rhythm this morning. 98% on room air. Laboratory data, white blood cell count 5.6, hemoglobin 14.4, platelet count 132. Sodium 142, potassium 4.4, BUN 12, creatinine 0.6. Troponin 0.012, BNP level 1280. Patient was given a one-time dose of Eliquis on arrival here, we will put him on Eliquis 5 mg one tablet by mouth twice a day, we will also optimize his medication for more optimal blood pressure control. I did have a lengthy discussion with the patient this morning regarding the importance of being on anticoagulation for stroke prevention. Patient did have an echo performed in July 2019 which revealed a normal left ventricular systolic function. 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 Pt states he has an irregular sleep pattern and will wake up at night gasping and his heart is racing. arthritis History of Any Multi-Drug Resistant Organisms: None Reported Past Surgical History: Orthopedic Surgery Additional Past Surgical History / Comment(s): right knee arthroscopy, cardioversion 10/20 Past Anesthesia/Blood Transfusion Reactions: No Reported Reaction Past Psychological History: No Psychological Hx Reported Smoking Status: Current every day smoker Past Alcohol Use History: Occasional Past Drug Use History: None Reported - Past Family History Father Family Medical History: Cancer Additional Family Medical History / Comment(s): Father at the age of 76yrs. Mother Additional Family Medical History / Comment(s): Mother had heart murmur. Medications and Allergies Home Medications Medication Instructions Recorded Confirmed Type Atenolol 25 mg PO BID 09/19/19 09/19/19 History Garlic 1 tab PO DAILY 09/19/19 09/19/19 History Losartan Potassium 100 mg PO HS 09/19/19 09/19/19 History Multivitamins, Thera [Multivitamin 1 tab PO DAILY 09/19/19 09/19/19 History (formulary)] Pravastatin Sodium [Pravachol] 20 mg PO DAILY 09/19/19 09/19/19 History Allergies Allergy/AdvReac Type Severity Reaction Status Date / Time No Known Allergies Allergy Verified 09/19/19 15:53 Physical Exam Vitals: Vital Signs Temp Pulse Pulse Resp BP BP BP 09/20/19 08:00 98.1 F 56 L 16 173/106 09/20/19 04:00 98.1 F 61 18 177/97 09/20/19 00:00 98.0 F 81 18 145/90 09/19/19 20:00 98.1 F 69 16 153/92 09/19/19 17:51 78 173/129 09/19/19 17:40 167/111 09/19/19 17:20 157/111 09/19/19 17:06 16 183/126 09/19/19 16:33 98.0 F 86 20 180/98 09/19/19 16:32 16 168/140 09/19/19 16:30 162/112 09/19/19 15:40 77 23 162/112 09/19/19 15:10 90 21 162/112 09/19/19 15:00 79 15 162/112 09/19/19 14:58 79 16 162/112 09/19/19 14:50 80 23 172/140 09/19/19 14:40 94 19 172/140 09/19/19 14:30 93 24 172/140 09/19/19 14:20 89 22 172/140 09/19/19 14:10 99 24 172/140 09/19/19 14:00 159/117 09/19/19 13:50 91 7 L 09/19/19 13:40 79 16 09/19/19 13:30 80 22 09/19/19 13:20 93 18 09/19/19 13:10 89 10 L 09/19/19 13:00 105 H 22 09/19/19 12:55 31 H 09/19/19 12:44 97.7 F 84 20 177/107 Pulse Ox 09/20/19 08:00 98 09/20/19 04:00 98 09/20/19 00:00 100 09/19/19 20:00 99 09/19/19 17:51 09/19/19 17:40 09/19/19 17:20 09/19/19 17:06 09/19/19 16:33 99 09/19/19 16:32 09/19/19 16:30 09/19/19 15:40 99 09/19/19 15:10 100 09/19/19 15:00 99 09/19/19 14:58 100 09/19/19 14:50 98 09/19/19 14:40 99 09/19/19 14:30 99 09/19/19 14:20 99 09/19/19 14:10 98 09/19/19 14:00 09/19/19 13:50 09/19/19 13:40 09/19/19 13:30 09/19/19 13:20 09/19/19 13:10 09/19/19 13:00 09/19/19 12:55 09/19/19 12:44 100 Intake and Output 09/19/19 09/20/19 09/20/19 22:59 06:59 14:59 Intake Total 540 10 Output Total 400 Balance 140 10 Intake: Oral 540 10 Output: Urine 400 Other: # Voids 0 Weight 126.099 kg 125.7 kg PHYSICAL EXAMINATION: GENERAL: 49-year-old -[place] gentleman in no acute distress at the time of my examination HEENT: Head is atraumatic, normocephalic. Pupils equal, round. Sclera anicteric. Conjunctiva are clear. Mucous membranes of the mouth are moist. Neck is supple. There is no elevated jugular venous pressure. No carotid bruit is heard. HEART EXAMINATION: Heart S1, S2 normal. No murmur or gallop heard. CHEST EXAMINATION: Lungs reveal some mild scattered wheezing throughout ABDOMEN: Soft, nontender. Bowel sounds are heard. No organomegaly noted. EXTREMITIES: 2+ peripheral pulses with no evidence of peripheral edema and no calf tenderness noted. NEUROLOGIC patient is awake, alert and oriented 3 . . Results 09/19/19 13:04 09/19/19 13:04 Cardiac Enzymes 09/19/19 09/19/19 Range/Units 13:04 13:04 AST 24 (17-59) U/L Troponin I <0.012 (0.000-0.034) ng/mL Coagulation 09/19/19 Range/Units 13:04 PT 9.7 (9.0-12.0) sec APTT 22.2 (22.0-30.0) sec CBC 09/19/19 Range/Units 13:04 WBC 5.6 (3.8-10.6) k/uL RBC 5.52 (4.30-5.90) m/uL Hgb 14.4 (13.0-17.5) gm/dL Hct 45.8 (39.0-53.0) % Plt Count 132 L (150-450) k/uL Comprehensive Metabolic Panel 09/19/19 Range/Units 13:04 Sodium 142 (137-145) mmol/L Potassium 4.4 (3.5-5.1) mmol/L Chloride 107 (98-107) mmol/L Carbon Dioxide 28 (22-30) mmol/L BUN 12 (9-20) mg/dL Creatinine 0.61 L (0.66-1.25) mg/dL Glucose 106 H (74-99) mg/dL Calcium 9.1 (8.4-10.2) mg/dL AST 24 (17-59) U/L ALT 23 (4-49) U/L Alkaline Phosphatase 71 (38-126) U/L Total Protein 6.9 (6.3-8.2) g/dL Albumin 4.1 (3.5-5.0) g/dL Current Medications Generic Name Dose Route Start Last Admin Trade Name Freq PRN Reason Stop Dose Admin Atenolol 25 mg 09/19/19 21:00 09/20/19 05:12 Tenormin PO 25 mg BID SIGIFREDO Administration Losartan Potassium 100 mg 09/20/19 09:00 09/20/19 05:12 Cozaar PO 100 mg DAILY SIGIFREDO Administration Multivitamins 1 each 09/19/19 17:15 09/20/19 08:07 Theragran PO 1 each DAILY SIGIFREDO Administration Naloxone HCl 0.2 mg 09/19/19 15:48 Narcan IV Q2M PRN Opioid Reversal Pravastatin Sodium 20 mg 09/20/19 09:00 09/20/19 08:07 Pravachol PO 20 mg DAILY SIGIFREDO Administration Intake and Output 09/19/19 09/20/19 09/20/19 22:59 06:59 14:59 Intake Total 540 10 Output Total 400 Balance 140 10 Intake: Oral 540 10 Output: Urine 400 Other: # Voids 0 Weight 126.099 kg 125.7 kg 09/19/19 13:04 09/19/19 13:04 EKG Interpretations (text) EKG on presentation here showed atrial fibrillation with moderately rapid ventricular response Assessment and Plan Plan: Assessment and plan #1 atrial fibrillation with moderately rapid ventricular response, paroxysmal #2 history of paroxysmal atrial fibrillation with prior cardioversion approximately a year ago #3 accelerated hypertension #4 hyperlipidemia #5 nicotine dependence Plan Patient just had an echo performed in July which revealed a normal left ventricular systolic function, we will not repeat an echo on this admission. Check a TSH level. Obtain an EKG this morning now that the patient is in normal sinus rhythm. Initiate Eliquis 5 mg one tablet by mouth twice a day for antic oagulation and stroke prevention. Adjust medications to optimize blood pressure control. DNP note has been reviewed, I agree with a documented findings and plan of care. Patient was seen and examined.
[2019-09-20] MEDS: amLODIPine 5 MG TAB PO SCH (09:40)
[2019-09-20] MEDS: APIXABAN 5 MG TAB PO SCH ×2 (09:40→20:25)
--- NOTE | 2019-09-20 12:24 | P.HPIM ---
History of Present Illness this is a pleasant 49 years -[place] old male with past medical history of Alphonse ascencio with hypertension, hyperlipidemia, who presents because of generalized weakness and atrial fibrillation, his heart rate was in the 90s however his blood pressure was elevated more than 170. Patient states that he missed his atrial fibrillation medicine on Friday, and on Friday he felt palpitations with lightheadedness and some shortness of breath with weakness however he denies chest pain. labs including CBC, BMP, INR, liver enzymes were unremarkable. EKG showing AEmy ascencio with heart rate of 95. Chest x-ray: No acute process at home he was on losartan 100 mg at that time and atenolol 25 mg twice daily Norvasc 5 mg has been added Review of Systems CONSTITUTIONAL: No fever, no malaise, no fatigue. HEENT: No recent visual problems or hearing problems. Denied any sore throat. CARDIOVASCULAR: No orthopnea, PND, no palpitations, no syncope. PULMONARY: No shortness of breath, no cough, no hemoptysis. GASTROINTESTINAL: No diarrhea, no nausea, no vomiting, no abdominal pain. Normoactive bowel sounds. NEUROLOGICAL: No headaches, no weakness, no numbness. HEMATOLOGICAL: Denies any bleeding or petechiae. GENITOURINARY: Denies any burning micturition, frequency, or urgency. MUSCULOSKELETAL/RHEUMATOLOGICAL: Denies any joint pain, swelling, or any muscle pain. ENDOCRINE: Denies any polyuria or polydipsia. Past Medical History Past Medical History: Atrial Fibrillation, Hyperlipidemia, Hypertension, Sleep Apnea/CPAP/BIPAP Additional Past Medical History / Comment(s): Pt states he had an arrhythmia found by his PCP about a month ago-he was sent for a cardiology appt-EKG done by PCP not available to [facility]. Pt states he has an irregular sleep pattern and will wake up at night gasping and his heart is racing. arthritis History of Any Multi-Drug Resistant Organisms: None Reported Past Surgical History: Orthopedic Surgery Additional Past Surgical History / Comment(s): right knee arthroscopy, cardioversion 10/20 Past Anesthesia/Blood Transfusion Reactions: No Reported Reaction Past Psychological History: No Psychological Hx Reported Smoking Status: Current every day smoker Past Alcohol Use History: Occasional Past Drug Use History: None Reported - Past Family History Father Family Medical History: Cancer Additional Family Medical History / Comment(s): Father at the age of 76yrs. Mother Additional Family Medical History / Comment(s): Mother had heart murmur. Medications and Allergies Home Medications Medication Instructions Recorded Confirmed Type Atenolol 25 mg PO BID 09/19/19 09/19/19 History Garlic 1 tab PO DAILY 09/19/19 09/19/19 History Losartan Potassium 100 mg PO HS 09/19/19 09/19/19 History Multivitamins, Thera [Multivitamin 1 tab PO DAILY 09/19/19 09/19/19 History (formulary)] Pravastatin Sodium [Pravachol] 20 mg PO DAILY 09/19/19 09/19/19 History Allergies Allergy/AdvReac Type Severity Reaction Status Date / Time No Known Allergies Allergy Verified 09/19/19 15:53 Physical Exam Vitals: Vital Signs Temp Pulse Pulse Resp BP BP BP 09/20/19 11:56 58 L 16 159/98 09/20/19 08:00 98.1 F 56 L 16 173/106 09/20/19 04:00 98.1 F 61 18 177/97 09/20/19 00:00 98.0 F 81 18 145/90 09/19/19 20:00 98.1 F 69 16 153/92 09/19/19 17:51 78 173/129 09/19/19 17:40 167/111 09/19/19 17:20 157/111 09/19/19 17:06 16 183/126 09/19/19 16:33 98.0 F 86 20 180/98 09/19/19 16:32 16 168/140 09/19/19 16:30 162/112 09/19/19 15:40 77 23 162/112 09/19/19 15:10 90 21 162/112 09/19/19 15:00 79 15 162/112 09/19/19 14:58 79 16 162/112 09/19/19 14:50 80 23 172/140 09/19/19 14:40 94 19 172/140 09/19/19 14:30 93 24 172/140 09/19/19 14:20 89 22 172/140 09/19/19 14:10 99 24 172/140 09/19/19 14:00 159/117 09/19/19 13:50 91 7 L 09/19/19 13:40 79 16 09/19/19 13:30 80 22 09/19/19 13:20 93 18 09/19/19 13:10 89 10 L 09/19/19 13:00 105 H 22 09/19/19 12:55 31 H 09/19/19 12:44 97.7 F 84 20 177/107 Pulse Ox 09/20/19 11:56 99 09/20/19 08:00 98 09/20/19 04:00 98 09/20/19 00:00 100 09/19/19 20:00 99 09/19/19 17:51 09/19/19 17:40 09/19/19 17:20 09/19/19 17:06 09/19/19 16:33 99 09/19/19 16:32 09/19/19 16:30 09/19/19 15:40 99 09/19/19 15:10 100 09/19/19 15:00 99 09/19/19 14:58 100 09/19/19 14:50 98 09/19/19 14:40 99 09/19/19 14:30 99 09/19/19 14:20 99 09/19/19 14:10 98 09/19/19 14:00 09/19/19 13:50 09/19/19 13:40 09/19/19 13:30 09/19/19 13:20 09/19/19 13:10 09/19/19 13:00 09/19/19 12:55 09/19/19 12:44 100 Intake and Output 09/19/19 09/20/19 09/20/19 22:59 06:59 14:59 Intake Total 540 10 Output Total 400 Balance 140 10 Intake: Oral 540 10 Output: Urine 400 Other: # Voids 0 Weight 126.099 kg 125.7 kg GENERAL: The patient is alert and oriented x3, not in any acute distress. Well developed, well nourished. HEENT: Pupils are round and equally reacting to light. EOMI. No scleral icterus. No conjunctival pallor. Normocephalic, atraumatic. No pharyngeal erythema. No thyromegaly. CARDIOVASCULAR: S1 and S2 present. No murmurs, rubs, or gallops. PULMONARY: Chest is clear to auscultation, no wheezing or crackles. ABDOMEN: Soft, nontender, nondistended, normoactive bowel sounds. No palpable organomegaly. MUSCULOSKELETAL: No joint swelling or deformity. EXTREMITIES: No cyanosis, clubbing, or pedal edema. NEUROLOGICAL: Gross neurological examination did not reveal any focal deficits. SKIN: No rashes. No petechiae Results CBC & Chem 7: 09/19/19 13:04 09/19/19 13:04 Labs: Abnormal Lab Results - Last 24 Hours (Table) 09/19/19 09/19/19 Range/Units 13:04 13:04 Plt Count 132 L (150-450) k/uL Creatinine 0.61 L (0.66-1.25) mg/dL Glucose 106 H (74-99) mg/dL Thrombosis Risk Factor Assmnt - Choose All That Apply Each Factor Represents 1 point: Age 41-60 years Other congenital or acquired thrombophilia - If yes, enter type in comment: No Thrombosis Risk Factor Assessment Total Risk Factor Score: 1 Thrombosis Risk Factor Assessment Level: Low Risk Assessment and Plan Assessment: A. fib with controlled failed but with symptoms of palpitation and lightheadedness Uncontrolled pressure, hypertensive urgency Hyperlipidemia Nicotine dependence, he smokes about half pack per day, patient is counseled and he wants to quit. He denied nicotine patch Plan: this is a pleasant 49 years old male who presents with uncontrolled blood pressure and hypertensive urgency, on the top of his A. fib. Also he feels generally weak. Continue with his metoprolol and adjust his dose per cardiology, add Norvasc and continue with a per cardiology recommendation. Possible patient is going for a stress test. Continue with the Eliquis Labs and medication were reviewed.. Continue same treatment. Continue with symptomatic treatment. Resume home medication. Mo. Eliquisnitor lytes and vitals. DVT and GI prophylaxis. Further recommendations of the clinical course of the patient DVT prophylaxis:eliquis GI Prophylaxis: Pepcid Prognosis is guarded
[2019-09-20] MEDS: FAMOTIDINE 20 MG/2 ML VIAL IV SCH (20:26)
[2019-09-20] MEDS ORDERED: hydrALAZINE HCL 20 MG/ML 1 ML VIAL IVP PRN (23:44)
[2019-09-21 00:34] LABS: Hemoglobin A1C 5.7 % (4.0-6.0)
[2019-09-21 06:03] LABS: Basophils % (A) 1 %; Eosinophils # (A) 0.1 k/uL (0-0.7); Eosinophils % (A) 3 %; HCT 42.6 % (39.0-53.0); HGB 13.5 gm/dL (13.0-17.5); Hypochromasia Marked; Lymphocytes # (A) 1.7 k/uL (1.0-4.8); Lymphocytes % (A) 33 %; MCH 26.8 pg (25.0-35.0); MCHC 31.7 g/dL (31.0-37.0); MCV 84.7 fL (80.0-100.0); Mean Platelet Volume 10.2; Monocytes # (A) 0.3 k/uL (0-1.0); Monocytes % (A) 5 %; Neutrophils # (A) 2.9 k/uL (1.3-7.7); Neutrophils % (A) 55 %; Platelet Count 148 k/uL (150-450); RBC 5.02 m/uL (4.30-5.90); RDW 15.3 % (11.5-15.5); WBC 5.3 k/uL (3.8-10.6)
[2019-09-21] MEDS: FAMOTIDINE 20 MG/2 ML VIAL IV SCH (09:53)
[2019-09-21] MEDS: APIXABAN 5 MG TAB PO SCH ×2 (09:53→21:23)
[2019-09-21] MEDS: amLODIPine 5 MG TAB PO SCH (09:53)
[2019-09-21] MEDS: PRAVASTATIN SODIUM 20 MG TAB PO SCH (09:53)
[2019-09-21] MEDS: ATENOLOL 25 MG TAB PO SCH ×2 (09:54→21:22)
[2019-09-21] MEDS: MULTIVITAMINS, THERA 1 EACH TAB PO SCH (09:54)
[2019-09-21] MEDS: LOSARTAN 50 MG TAB PO SCH (09:54)
[2019-09-21] MEDS ORDERED: amLODIPine 5 MG TAB PO STA (10:38)
[2019-09-21] MEDS ORDERED: hydrALAZINE HCL 25 MG TAB PO SCH (10:45)
[2019-09-21] MEDS: FLECAINIDE 50 MG TAB PO SCH ×2 (12:14→21:23)
--- NOTE | 2019-09-21 13:07 | ECHOS ---
STRESS ECHOCARDIOGRAM DATE OF SERVICE: 09/20/2019 INDICATIONS: Short of breath. MEDICATIONS: BASELINE HEART RATE: 61 BASELINE BLOOD PRESSURE: 149/82 MAXIMUM HEART RATE: 119 MAXIMUM BLOOD PRESSURE: 206/100 85% MPHR: 145 100% MPHR: 170 METS: 3.8 MAXIMUM STAGE REACHED: I TOTAL EXERCISE TIME: 2 minutes 30 seconds CLINICAL INFORMATION: Patient was exercised for a total period of 2 minutes and 30 seconds. The test was terminated because patient got tired and short of breath. Peak heart rate of 119 was achieved, which is equivalent to 70% of age predicted heart rate. Maximum blood pressure of 206/100 mmHg was noted. Resting EKG shows normal sinus rhythm with normal TX interval and QRS duration and normal ST-T waves. No ST-segment depression suggestive of ischemia was noted. The baseline echocardiographic images reveals normal left ventricular chamber size with normal left ventricular systolic function. At the peak in the immediate postexercise periods, normal increase in the wall thickness and contractility is noted. FINAL IMPRESSION: This stress echocardiographic study is inconclusive to diagnose ischemia because of the patient's poor exercise tolerance and only 70% of the age predicted heart rate was not achieved. However, there is a normal increase in the wall thickness and contractility up to the heart rate of 120. MMODL / IJN: [id number] /
--- NOTE | 2019-09-21 14:56 | P.PN ---
Subjective Progress Note Date: 09/21/19 This is a 49-year-old -[place] gentleman with history of hyperlipidemia, hypertension, paroxysmal atrial fibrillation for which the patient states he underwent a cardioversion approximately a year ago, he states that he was put on Xarelto at that time, he ultimately stopped taking his Xarelto because he did not like the fact that there is no reversal agent for, he took aspirin for a short period of time and then discontinued that as well. He does smoke cigarettes, he denies any alcohol, he drinks one cup of coffee per day. Patient presents to the hospital on this occasion with symptoms of progressive weakness and tiredness with associated mild shortness of breath. He states that he took a breathing treatment at home because of the shortness of breath, still continued in general not to feel well and came to the hospital for further evaluation and treatment. His initial EKG on presentation here showed atrial fibrillation with a heart rate in the 90s. Chest x-ray did not reveal any acute cardiopulmonary process. Blood pressure on arrival here 177/107, heart rate in the 90s on admission, 100% O2 sat. Blood pressure this morning 173/106, heart rate in the 50s, patient is in a normal sinus rhythm this morning. 98% on room air. Laboratory data, white blood cell count 5.6, hemoglobin 14.4, platelet count 132. Sodium 142, potassium 4.4, BUN 12, creatinine 0.6. Troponin 0.012, BNP level 1280. Patient was given a one-time dose of Eliquis on arrival here, we will put him on Eliquis 5 mg one tablet by mouth twice a day, we will also optimize his medication for more optimal blood pressure control. I did have a lengthy discussion with the patient this morning regarding the importance of being on anticoagulation for stroke prevention. Patient did have an echo performed in July 2019 which revealed a normal left ventricular systolic function. 09/21/2019 Stress echocardiographic study was inconclusive because of poor exercise tolerance, however there was normal increase in wall thickness and contractility suggesting negative stress test based on 70% of the age-predicted heart rate. LV function was normal. We started the patient today on flecainide, we will continue to observe him for another 24 hours. Blood pressure today 164/110 with a heart rate in the 60s, 99% on room air. Blood cell count 5.3, hemoglobin 13.5, platelet count 148. We'll continue anticoagulation with Eliquis 5 mg one tablet by mouth twice a day, start the patient today on flecainide 50 mg now and twice a day, Norvasc was increased today to 10 mg daily, patient was also initiated on Dyazide and the hydralazine discontinued. We will continue to monitor the patient for another 24 hours and plan for possible discharge home in the morning Objective - Vital Signs Vital signs: Vital Signs Temp 98.1 F 09/21/19 04:00 Pulse 60 09/21/19 12:00 Resp 20 09/21/19 12:00 BP 167/97 09/21/19 12:00 Pulse Ox 97 09/21/19 12:00 Intake & Output 09/20/19 09/21/19 09/21/19 18:59 06:59 18:59 Intake Total 1410 540 360 Output Total 400 Balance 1410 140 360 Weight 125.7 kg 126 kg Intake: Oral 1410 540 360 Output: Urine 400 Other: # Voids 3 1 - Exam PHYSICAL EXAMINATION: GENERAL: 49-year-old -[place] gentleman in no acute distress at the time of my examination HEENT: Head is atraumatic, normocephalic. Pupils equal, round. Sclera anicteric. Conjunctiva are clear. Mucous membranes of the mouth are moist. Neck is supple. There is no elevated jugular venous pressure. No carotid bruit is heard. HEART EXAMINATION: Heart S1, S2 normal. No murmur or gallop heard. CHEST EXAMINATION: Lungs reveal some mild scattered wheezing throughout ABDOMEN: Soft, nontender. Bowel sounds are heard. No organomegaly noted. EXTREMITIES: 2+ peripheral pulses with no evidence of peripheral edema and no calf tenderness noted. NEUROLOGIC patient is awake, alert and oriented 3 . - Labs CBC & Chem 7: 09/21/19 05:16 09/19/19 13:04 Labs: Abnormal Lab Results - Last 24 Hours (Table) 09/21/19 Range/Units 05:16 Plt Count 148 L (150-450) k/uL Assessment and Plan Plan: Assessment and plan #1 atrial fibrillation with moderately rapid ventricular response, paroxysmal #2 history of paroxysmal atrial fibrillation with prior cardioversion approximately a year ago #3 accelerated hypertension #4 hyperlipidemia #5 nicotine dependence Plan Patient just had an echo performed in July which revealed a normal left ventricular systolic function, we will not repeat an echo on this admission. TSH level normal. Stress echocardiographic study although inconclusive, revealed a normal left ventricular systolic function. We will start the patient on flecainide 50 mg one tablet by mouth twice a day today, Norvasc was increased to 10 mg daily, and patient was initiated on Dyazide. We will continue to monitor the patient for 24 hours, plan for discharge home in the morning if stable. DNP note has been reviewed, I agree with a documented findings and plan of care. Patient was seen and examined.
[2019-09-21] MEDS: TRIAMTERENE-HCTZ 37.5-25MG 1 EACH CAP PO SCH (15:46)
--- NOTE | 2019-09-21 20:25 | P.PN ---
Subjective this is a pleasant 49 years -[place] old male with past medical history of AEmy ascencio with hypertension, hyperlipidemia, who presents because of generalized weakness and atrial fibrillation, his heart rate was in the 90s however his blood pressure was elevated more than 170. Patient states that he missed his atrial fibrillation medicine on Friday, and on Friday he felt palpitations with lightheadedness and some shortness of breath with weakness however he denies chest pain. labs including CBC, BMP, INR, liver enzymes were unremarkable. EKG showing A. sonu with heart rate of 95. Chest x-ray: No acute process at home he was on losartan 100 mg at that time and atenolol 25 mg twice daily Norvasc 5 mg has been added 09/21/19 pt is doing well with no dyspnea or chest pain , however pt need monitoring as flaicanide is to be started by cardiology team. also his BP is not controlled, add norvasc 10 and hydralazine 25 mg bid, pt did not want HCTZ or now , pt agrees with his appointment with Objective - Vital Signs Vital signs: Vital Signs Temp 98.1 F 09/21/19 04:00 Pulse 60 09/21/19 12:00 Resp 20 09/21/19 12:00 BP 167/97 09/21/19 12:00 Pulse Ox 97 09/21/19 12:00 Intake & Output 09/21/19 09/21/19 09/22/19 06:59 18:59 06:59 Intake Total 540 600 Output Total 400 Balance 140 600 Weight 126 kg Intake: Oral 540 600 Output: Urine 400 Other: # Voids 2 - Exam GENERAL: The patient is alert and oriented x3, not in any acute distress. Well developed, well nourished. HEENT: Pupils are round and equally reacting to light. EOMI. No scleral icterus. No conjunctival pallor. Normocephalic, atraumatic. No pharyngeal erythema. No thyromegaly. CARDIOVASCULAR: S1 and S2 present. No murmurs, rubs, or gallops. PULMONARY: Chest is clear to auscultation, no wheezing or crackles. ABDOMEN: Soft, nontender, nondistended, normoactive bowel sounds. No palpable organomegaly. MUSCULOSKELETAL: No joint swelling or deformity. EXTREMITIES: No cyanosis, clubbing, or pedal edema. NEUROLOGICAL: Gross neurological examination did not reveal any focal deficits. SKIN: No rashes. - Labs CBC & Chem 7: 09/21/19 05:16 09/19/19 13:04 Labs: Abnormal Lab Results - Last 24 Hours (Table) 09/21/19 Range/Units 05:16 Plt Count 148 L (150-450) k/uL Assessment and Plan Assessment: A. fib with controlled failed but with symptoms of palpitation and lightheadedness Uncontrolled pressure, hypertensive urgency Hyperlipidemia Nicotine dependence, he smokes about half pack per day, patient is counseled and he wants to quit. He denied nicotine patch Plan: this is a pleasant 49 years old male who presents with uncontrolled blood pressure and hypertensive urgency, on the top of his A. fib. Also he feels generally weak. Continue with his metoprolol and adjust his dose per cardiology, add Norvasc and continue with a per cardiology recommendation. Possible patient is going for a stress test. Continue with the Eliquis Labs and medication were reviewed.. Continue same treatment. Continue with sym ptomatic treatment. Resume home medication. Mo. Eliquisnitor lytes and vitals. DVT and GI prophylaxis. Further recommendations of the clinical course of the patient DVT prophylaxis:eliquis GI Prophylaxis: Pepcid Prognosis is guarded
[2019-09-21] MEDS: hydrALAZINE HCL 50 MG TAB PO SCH ×3 (21:23→21:26)
[2019-09-21] MEDS: FAMOTIDINE 20 MG TAB PO SCH (21:23)
--- NOTE | 2019-09-22 10:57 | ECHOF ---
Referral Reason:assess lvf MEASUREMENTS -------- HEIGHT: 182.9 cm WEIGHT: 125.6 kg BP: IVSd: 2.0 cm (0.6 - 1.1) LVIDd: 4.5 cm (3.9 - 5.3) LVPWd: 2.1 cm (0.6 - 1.1) IVSs: 2.5 cm LVIDs: 3.3 cm LVPWs: 2.6 cm LAESV Index (A-L): 37.94 ml/m Ao Diam: 3.7 cm (2.0 - 3.7) AV Cusp: 2.1 cm (1.5 - 2.6) LA Diam: 3.6 cm (2.7 - 3.8) MV EXCURSION: 13.189 mm (> 18.000) MV EF SLOPE: 62 mm/s (70 - 150) EPSS: 0.9 cm MV E Derrell: 1.22 m/s MV DecT: 189 ms MV A Derrell: 0.39 m/s MV E/A Ratio: 3.14 AR PHT: 464 ms RAP: 5.00 mmHg RVSP: 64.26 mmHg TAPSE: 19.37 mm FINDINGS -------- Sinus rhythm. This was a technically difficult study with suboptimal views. The left ventricular size is normal. There is severe concentric left ventricular hypertrophy. Ove rall left ventricular systolic function is low-normal with, an EF between 50 - 55 %. Increased LAP Grade 2 Diastolic Dysfunction. The right ventricle is normal in size. The left atrial size is normal. LA is moderately dilated 34-39 ml/m2 The right atrial size is normal. Lumason used The aortic valve is trileaflet and appears structurally normal. There is mild aortic regurgitation. The mitral valve is normal. The mitral valve leaflets are mildly thickened. Mild mitral annular c alcification present. Mild mitral regurgitation is present. The tricuspid valve appears structurally normal. Mild tricuspid regurgitation present. There is m oderate pulmonary hypertension. The right ventricular systolic pressure, as measured by Doppler, is 64.26mmHg. There is no pulmonic regurgitation present. The aortic root size is normal. IVC Not well visulized. There is no pericardial effusion. CONCLUSIONS -------- 1. Sinus rhythm. 2. This was a technically difficult study with suboptimal views. 3. The left ventricular size is normal. 4. Overall left ventricular systolic function is low-normal with, an EF between 50 - 55 %. 5. Increased LAP Grade 2 Diastolic Dysfunction. 6. The right ventricle is normal in size. 7. The left atrial size is normal. 8. LA is moderately dilated 34-39 ml/m2 9. The right atrial size is normal. 10. Lumason used 11. The aortic valve is trileaflet and appears structurally normal. 12. There is mild aortic regurgitation. 13. The mitral valve is normal. 14. The mitral valve leaflets are mildly thickened. 15. Mild mitral annular calcification present. 16. Mild mitral regurgitation is present. 17. The tricuspid valve appears structurally normal. 18. Mild tricuspid regurgitation present. 19. There is moderate pulmonary hypertension. 20. The right ventricular systolic pressure, as measured by Doppler, is 64.26mmHg. 21. There is no pulmonic regurgitation present. 22. The aortic root size is normal. 23. IVC Not well visulized. 24. There is no pericardial effusion. EXPERIMENTAL PSYCHOLOGIST: Gabby Roach RDCS
[2019-09-22] MEDS: TRIAMTERENE-HCTZ 37.5-25MG 1 EACH CAP PO SCH (11:14)
[2019-09-22] MEDS: ATENOLOL 25 MG TAB PO SCH ×2 (11:14→19:59)
[2019-09-22] MEDS: APIXABAN 5 MG TAB PO SCH ×2 (11:14→19:59)
[2019-09-22] MEDS: LOSARTAN 50 MG TAB PO SCH (11:15)
[2019-09-22] MEDS: PRAVASTATIN SODIUM 20 MG TAB PO SCH (11:15)
[2019-09-22] MEDS: FAMOTIDINE 20 MG TAB PO SCH ×2 (11:15→19:59)
[2019-09-22] MEDS: amLODIPine 10 MG TAB PO SCH (11:15)
[2019-09-22] MEDS: FLECAINIDE 50 MG TAB PO SCH ×2 (11:15→19:59)
[2019-09-22] MEDS: MULTIVITAMINS, THERA 1 EACH TAB PO SCH (11:15)
[2019-09-22] MEDS: hydrALAZINE HCL 50 MG TAB PO SCH (11:57)
[2019-09-22] MEDS ORDERED: VALSARTAN 160 MG TAB PO STA (15:53)
[2019-09-22 16:05] VITALS: RESP 18
--- NOTE | 2019-09-22 21:12 | P.PN ---
Subjective this is a pleasant 49 years -[place] old male with past medical history of A. sonu with hypertension, hyperlipidemia, who presents because of generalized weakness and atrial fibrillation, his heart rate was in the 90s however his blood pressure was elevated more than 170. Patient states that he missed his atrial fibrillation medicine on Friday, and on Friday he felt palpitations with lightheadedness and some shortness of breath with weakness however he denies chest pain. labs including CBC, BMP, INR, liver enzymes were unremarkable. EKG showing A. sonu with heart rate of 95. Chest x-ray: No acute process at home he was on losartan 100 mg at that time and atenolol 25 mg twice daily Norvasc 5 mg has been added 09/21/19 pt is doing well with no dyspnea or chest pain , however pt need monitoring as flaicanide is to be started by cardiology team. also his BP is not controlled, add norvasc 10 and hydralazine 25 mg bid, pt did not want HCTZ or now , pt agrees with his appointment with 09/22/19 pt is lying in bed with no new symptoms however his BP is still not well controlled despite several medications , cardiology are following the case closely , his BP was still on the high side , pt still needs close monitoring in the hospital , currently he is kept on atenolol, and losartan has been changed to valsartan , and diuretic is been addded Triamterene-HCTZ, currently his BP is 164/95, heart rate 68. cardiology team are following the case closely and they are adjusting his BP medication Objective - Vital Signs Vital signs: Vital Signs Temp 97.8 F 09/22/19 20:00 Pulse 68 09/22/19 20:00 Resp 18 09/22/19 20:00 BP 164/95 09/22/19 20:00 Pulse Ox 97 09/22/19 20:00 Intake & Output 09/22/19 09/22/19 09/23/19 06:59 18:59 06:59 Intake Total 462 Balance 462 Weight 123.5 kg Intake: Oral 462 Other: # Voids 1 - Exam GENERAL: The patient is alert and oriented x3, not in any acute distress. Well developed, well nourished. HEENT: Pupils are round and equally reacting to light. EOMI. No scleral icterus. No conjunctival pallor. Normocephalic, atraumatic. No pharyngeal erythema. No thyromegaly. CARDIOVASCULAR: S1 and S2 present. No murmurs, rubs, or gallops. PULMONARY: Chest is clear to auscultation, no wheezing or crackles. ABDOMEN: Soft, nontender, nondistended, normoactive bowel sounds. No palpable organomegaly. MUSCULOSKELETAL: No joint swelling or deformity. EXTREMITIES: No cyanosis, clubbing, or pedal edema. NEUROLOGICAL: Gross neurological examination did not reveal any focal deficits. SKIN: No rashes. - Labs CBC & Chem 7: 09/21/19 05:16 09/19/19 13:04 Assessment and Plan Assessment: A. fib with controlled failed but with symptoms of palpitation and lightheadedness Uncontrolled high blood pressure, hypertension hypertensive urgency, resolved Hyperlipidemia Nicotine dependence, he smokes about half pack per day, patient is counseled and he wants to quit. He denied nicotine patch Plan: this is a pleasant 49 years old male who presents with uncontrolled blood pressure and hypertensive urgency, on the top of his A. fib. Continue with his atenolol and norvac and barbara inhibitor and adjust his dose per cardiology, and continue with cardiology recommendation. Continue with the Eliquis Labs and medication were reviewed.. Continue same treatment. Continue with symptomatic treatment. Resume home medication. Mo. Eliquisnitor lytes and vitals. DVT and GI prophylaxis. Further recommendations of the clinical course of the patient DVT prophylaxis:eliquis GI Prophylaxis: Pepcid Prognosis is guarded
[2019-09-23 06:39] LABS: African American GFR (CKD) >90 (>60 ml/min/1.73 sqM); Anion Gap 7 mmol/L; Blood Urea Nitrogen 12 mg/dL (9-20); Calcium 9.6 mg/dL (8.4-10.2); Carbon Dioxide 33 mmol/L (22-30); Chloride 103 mmol/L (98-107); Glucose 97 mg/dL (74-99); Non-African American GFR(CKD) >90 (>60 ml/min/1.73 sqM); Potassium 4.5 mmol/L (3.5-5.1); Sodium 143 mmol/L (137-145)
[2019-09-23] MEDS: MULTIVITAMINS, THERA 1 EACH TAB PO SCH (08:38)
[2019-09-23] MEDS: amLODIPine 10 MG TAB PO SCH (08:38)
[2019-09-23] MEDS: FAMOTIDINE 20 MG TAB PO SCH (08:38)
[2019-09-23] MEDS: ATENOLOL 25 MG TAB PO SCH (08:38)
[2019-09-23] MEDS: TRIAMTERENE-HCTZ 37.5-25MG 1 EACH CAP PO SCH (08:38)
[2019-09-23] MEDS: FLECAINIDE 50 MG TAB PO SCH (08:40)
[2019-09-23] MEDS: APIXABAN 5 MG TAB PO SCH (08:40)
[2019-09-23] MEDS: PRAVASTATIN SODIUM 20 MG TAB PO SCH (08:40)
[2019-09-23] MEDS ORDERED: VALSARTAN 160 MG TAB PO SCH (09:00)
[2019-09-23 12:13] VITALS: BP 153/100; PULSE 58; TEMP 98.3
--- NOTE | 2019-09-23 12:20 | P.DS ---
Providers Date of admission: 09/21/19 08:36 Attending physician: Fer Capone Consults: 09/19/19 15:49 Consult Physician Urgent Consulting Provider: [facility] Consult Reason/Comments: afib with rvr Do you want consulting provider notified?: Yes Primary care physician: Carlee Lawson [facility] Course: Diagnoses: A. fib with controlled failed but with symptoms of palpitation and light headedness Uncontrolled resistant high blood pressure, improved hypertensive urgency on admission. Result Hyperlipidemia Nicotine dependence, he smokes about half pack per day, patient is counseled and he wants to quit. He denied nicotine patch Hospital course: this is a pleasant 49 years -[place] old male with past medical history of A. fib with hypertension, hyperlipidemia, who presents because of generalized weakness, and atrial fibrillation, his heart rate was in the 90s however his blood pressure was elevated more than 170. Cardiology evaluated patient. It was felt patient symptoms coming from his atrial fibrillation. He underwent stress echo which was not optimal study because he got only 70% of the call heart rate and the result was inconclusive but no reversible ischemia was found, quoter eventually placed patient on flecainide. And his symptoms are completely resolved. However his blood pressure remains uncontrolled after adding Norvasc and hydralazine.at home he was on losartan 100 mg daily (changed to valasartan ) and atenolol 25 mg twice daily . So diuretic with Dyazide (triamterene and hydrochlorothiazide) is added. Also he is on Norvasc 10 mg daily, patient aware that it might causes leg swelling. Eventually his Blood pressure controlled. Eventually patient keep doing well with no symptoms. No chest pain or dyspnea. No abdominal pain. No change in urine or bowel habits. No fever. Patient was cleared for discharge by quoter. Patient was restarted on Eliquis by cardiology service. His co-pay is $30 and he agrees with it, he got a call point and recommended down to $10. Patient was cleared by cardiology service for discharge Problems and management plan were discussed with the patient and he verbalized understanding and acceptance Patient was found stable and can be discharged home however he needs follow-up as an outpatient. Patient was instructed to follow up with PCP within one week and patient agrees. Patient agrees with the appointments made for him with Dr. Montoya and Dr. Reynolds and states he will follow-up I went with the medication 1 by 1 with the patient and he agrees with that, patient was prescribed for his home medication which was provided Gen: patient is a AAOx3, no distress CVS: S1-S2, RRR, no murmur Lungs: B/L CTA, no wheezing Abdomen: soft, no distention, no tenderness, positive bowel sounds Extremity: no leg edema or induration Time spent more than 35 minutes Patient Condition at Discharge: Stable Plan - Discharge Summary Discharge Rx Participant: No New Discharge Prescriptions: New Apixaban [Eliquis] 5 mg PO BID #60 tab amLODIPine [Norvasc] 10 mg PO DAILY #30 tablet Valsartan [Diovan] 320 mg PO DAILY #30 tab Flecainide [Tambocor] 50 mg PO Q12HR #60 tab Triamterene-Hctz 37.5-25Mg [Dyazide 37.5-25 Capsule] 1 each PO DAILY #30 cap Continue Multivitamins, Thera [Multivitamin (formulary)] 1 tab PO DAILY Garlic 1 tab PO DAILY Atenolol 25 mg PO BID #60 tab Pravastatin Sodium [Pravachol] 20 mg PO DAILY #30 tab Discontinued Losartan Potassium 100 mg PO HS Discharge Medication List Garlic 1 tab PO DAILY 09/19/19 [History] Multivitamins, Thera [Multivitamin (formulary)] 1 tab PO DAILY 09/19/19 [History] Apixaban [Eliquis] 5 mg PO BID #60 tab 09/21/19 [Rx] Atenolol 25 mg PO BID #60 tab 09/21/19 [Rx] Pravastatin Sodium [Pravachol] 20 mg PO DAILY #30 tab 09/21/19 [Rx] amLODIPine [Norvasc] 10 mg PO DAILY #30 tablet 09/21/19 [Rx] Flecainide [Tambocor] 50 mg PO Q12HR #60 tab 09/22/19 [Rx] Valsartan [Diovan] 320 mg PO DAILY #30 tab 09/22/19 [Rx] Triamterene-Hctz 37.5-25Mg [Dyazide 37.5-25 Capsule] 1 each PO DAILY #30 cap 09/23/19 [Rx] Follow up Appointment(s)/Referral(s): Lulu Bejarano MD [Primary Care Provider] - 09/27/19 2:50 pm (Friday) Sosa Reynolds MD [STAFF PHYSICIAN] - 10/05/19 3:15 pm (Friday) Patient Instructions/Handouts: A-fib (Atrial Fibrillation) (DC), How to Stop Smoking (DC), Heart Healthy Diet (DC), Hypertension (DC), Safe Use of Anticoagulants (DC) Activity/Diet/Wound Care/Special Instructions: Eliquis filled with free 30 day coupon @[email or web address] $30 - $10 copay card given to patient Cardiac diet Activity is limited till you see your doctor Discharge Disposition: HOME SELF-CARE
--- NOTE | 2019-09-23 13:24 | P.PN ---
Subjective Principal diagnosis: Patient is resting comfortably in bed. He is no chest discomfort no palpitations dizziness lightheadedness He has not had any further episodes of palpitations. While his blood pressure still elevated better now on his current medications Blood pressure 156/93 mmHg Heart rates in the 60s Afebrile Breath sounds are clear no rhonchi no crackles Heart sounds S1 and S2 are normal no murmurs or gallops or rub Abdomen soft X-rays are warm no edema Impression Hypertensive heart disease and left ventricular hypertrophy, severe Paroxysmal atrial fibrillation RVR On flecainide 50 mg twice daily Suggest Discharge home on current medications, amlodipine 10 mg by mouth daily Tenormin 25 g twice daily flecainide 50 g twice daily, Pravachol 20 mg by mouth daily and valsartan 320 mg by mouth daily and Dyazide Follow-up with Dr. Reynolds While his left frontal hypertrophy is most likely from uncontrolled long-s tanding hypertension consideration should be given to other causes of LVH Outpatient workup for other causes of left ventricular hypertrophy Objective - Vital Signs Vital signs: Vital Signs Temp 98.3 F 09/23/19 11:50 Pulse 58 L 09/23/19 11:50 Resp 18 09/23/19 11:50 BP 153/100 09/23/19 11:50 Pulse Ox 99 09/23/19 11:50 Intake & Output 09/22/19 09/23/19 09/23/19 18:59 06:59 18:59 Intake Total 462 180 Balance 462 180 Weight 122.5 kg Intake: Oral 462 180 Other: # Voids 1 # Bowel Movements 0 - Labs CBC & Chem 7: 09/21/19 05:16 09/23/19 05:55 Labs: Abnormal Lab Results - Last 24 Hours (Table) 09/23/19 Range/Units 05:55 Carbon Dioxide 33 H (22-30) mmol/L
== END 2019-09-23 13:33 | disposition home or self-care (01) | DRG 305 ==
LOC: EC 12:39 → 3SCARD 15:54 → OBSVTOIN 09-21 08:36
PROVIDERS: ADMIT Internal Medicine; ATTEND Internal Medicine
DX: I16.0 Hypertensive urgency (principal); I48.0 Paroxysmal atrial fibrillation; E78.5 Hyperlipidemia, unspecified; F17.210 Nicotine dependence, cigarettes, uncomplicated; Z71.6 Tobacco abuse counseling; I11.9 Hypertensive heart disease without heart failure; Z79.82 Long term (current) use of aspirin; Z79.899 Other long term (current) drug therapy; G47.30 Sleep apnea, unspecified; Z99.89 Dependence on other enabling machines and devices
CPT/HCPCS: 36415; 71046; 80048; 80053; 83036; 83880; 84443; 84484; 85025; 85610; 85730; 93005; 93306; 93351; 94760; 96374; 99285

== ENCOUNTER → 2020-01-26 | Outpatient (CLI) | payer BC ==
[2020-01-26 15:55] LABS: Albumin 4.3 g/dL (3.80-4.90); Albumin/Globulin Ratio 2.05 (1.60-3.17); Anion Gap 6.4 mmol/L (4.00-12.00); BUN/Creat Ratio 15.56 Ratio (12.00-20.00); Calcium 9.3 mg/dL (8.7-10.3); Carbon Dioxide 30.6 mmol/L (21.6-31.8); Chol/HDL Ratio 4.77; Globulin 2.1 g/dL (1.6-3.3); LDL Cholesterol,Calculated 150.8 mg/dL (0.0-131.0); Non-African American GFR(CKD) 99.2 (60.0-200.0); Potassium 4.2 mmol/L (3.5-5.5); Total Bilirubin 0.5 mg/dL (0.2-1.2); Total Protein 6.4 g/dL (6.2-8.2); VLDL Calculation 26.2 mg/dL (5.00-40.00)
[2020-01-26 17:43] LABS: Hemoglobin A1C 5.5 % (4.0-6.0)
== END | disposition home or self-care (01) ==
LOC: LABWHC1 09:27
PROVIDERS: ATTEND Internal Medicine
DX: I10 Essential (primary) hypertension (principal); R06.02 Shortness of breath; N40.0 Benign prostatic hyperplasia without lower urinary tract symptoms; R53.83 Other fatigue; I25.10 Atherosclerotic heart disease of native coronary artery without angina pectoris; F17.200 Nicotine dependence, unspecified, uncomplicated; Z79.01 Long term (current) use of anticoagulants
CPT/HCPCS: 36415; 80053; 80061; 82607; 83036; 84153

== ENCOUNTER → 2020-04-20 | Outpatient (CLI) | payer BC ==
--- NOTE | 2020-04-21 00:17 | CONS ---
CONSULTATION DATE OF SERVICE: 04/20/2020 This 49-year-old gentleman had been evaluated in the [facility] for obstructive sleep apnea-hypopnea syndrome. HISTORY OF PRESENT ILLNESS/SLEEP-WAKE EVALUATION: Patient usually works afternoon and nights. Subsequently, his sleep schedule is different. Days off, he sleeps from 10 p.m. until noon. He does have problems with falling asleep. He has TV set in bedroom. He usually sleeps on the side position. The patient was diagnosed with obstructive sleep apnea in 2018. At that time apnea- hypopnea index was 11.2 and REM sleep more than 20. The patient started to use machine but about one year ago he stopped using CPAP equipment because while using his machine he continued to wake up several times during the night. I checked his CPAP unit, regimen range of the pressure 5-20 with average pressure is 7.6. Significant leak 55 L/minute. At the same time when patient used machine, apnea-hypopnea index was only 1.3, which is normal range, but again the patient continued to wake up with the machine and he never had CPAP titration. Patient snores, has episodes of stopped breathing during sleep. He wakes up about 5 times from sleep with up to 5 episodes of nocturia. No history of hypnagogic hallucinations, sleep paralysis or cataplexy. PAST MEDICAL HISTORY: Positive for hypertension, hyperlipidemia, history of atrial fibrillation, status post cardioversion. PAST SURGICAL HISTORY: Right knee surgery, cardioversion. MEDICATIONS: Furosemide, Norvasc, valsartan, atenolol, flecainide, Eliquis, atorvastatin, potassium supplement. FAMILY HISTORY: Diabetes, heart problems. SOCIAL HISTORY: Positive for smoking. Negative for using alcohol or illegal drugs. He smokes about 10 cigarettes a day. PHYSICAL EXAMINATION: GENERAL: An gentleman without distress. VITAL SIGNS: BP 137/86, HR 65, RR 15, height 5 feet 8 inches, weight 291.2, body mass index 44.2, temperature 98.5, oxygen saturation at room air 97%. HEENT: PERRLA, EOMI. Oropharynx extremely low position of soft palate. Mallampati 4. NECK: Supple, no JVD. Thyroid is not palpable. LUNGS: Clear to percussion and to auscultation. Good air exchange. No wheezing or rhonchi. HEART: S1, S2 regular. No murmurs, gallops, or rubs. ABDOMEN: Obese. EXTREMITIES: No clubbing or cyanosis. PATHOLOGY ASSISTANT: Awake, alert, and oriented X3. Cranial nerves 2 to 7 intact. There is no fasciculation or atrophy. noted. No focal deficits observed. IMPRESSION: 1. Obstructive sleep apnea-hypopnea syndrome by results of polysomnogram in 2018. The patient was on treatment with auto PAP, but continued to have multiple awakenings from sleep, low position of soft palate. 2. Obesity, body mass index 44.2. 3. History of atrial fibrillation. 4. Hypertension. 5. Hyperlipidemia. 6. Status post right knee surgery. 7. Insomnia. PLAN: 1. CPAP if necessary BiPAP titration for correction of respiratory abnormalities during sleep. The patient wakes up in specific time at night. There is a possibility that he still has some abnormalities of respiration during REM sleep. 2. Losing weight. 3. Sleep hygiene with regular time in bed for at least 7-1/2 to 8 hours. 4. No driving if feeling sleepiness. 5. I discussed with the patient stimulus control, paradoxical intention techniques for treatment of insomnia. Thank you very much for allowing me to participate in management of your patient. Sincerely, Wilner Cisneros MD, PhD, FAASM Diplomat of [employer] [facility] [place] CHRISTA / JESSI: [id number] /
== END | disposition home or self-care (01) ==
LOC: SLEEP 15:58
PROVIDERS: ATTEND Internal Medicine
DX: G47.33 Obstructive sleep apnea (adult) (pediatric) (principal); G47.00 Insomnia, unspecified; E66.9 Obesity, unspecified; I10 Essential (primary) hypertension; E78.5 Hyperlipidemia, unspecified; Z68.41 Body mass index [BMI] 40.0-44.9, adult; Z98.890 Other specified postprocedural states
CPT/HCPCS: 99211

== ENCOUNTER 2020-04-25 05:30 | Emergency (ER) | payer BC ==
--- NOTE | 2020-04-25 05:37 | ED ---
General Adult HPI - General Stated complaint: SOB Time Seen by Provider: 04/25/20 05:36 - History of Present Illness Initial comments: Micky is a 49-year-old male with a history of hypertension, hyperlipidemia, tobacco abuse is recently been worked up for obstructive sleep apnea. Patient presents to the ER today for evaluation of an episode of shortness of breath. Patient reports he was sleeping not wearing his CPAP, he had a dream that he was very constricted when he woke up he felt like he couldn't breathe. This lasted approximately 2 minutes but then improved. Patient states that over the past couple of months he's felt like there frequent episodes like this where he feels like he can't catch his breath. He states that he pretty much always feels like he is not getting enough oxygen though he's been evaluated by primary care and referred to pulmonology his oxygen levels are low. He's never wheezing never been told he has COPD or asthma. L Steven for A. fib and has no family history or risk factors for DVT or PE. - Related Data Home Medications Medication Instructions Recorded Confirmed Garlic 1 tab PO DAILY 09/19/19 09/19/19 Multivitamins, Thera [Multivitamin 1 tab PO DAILY 09/19/19 09/19/19 (formulary)] Previous Rx's Medication Instructions Recorded Apixaban [Eliquis] 5 mg PO BID #60 tab 09/21/19 Pravastatin Sodium [Pravachol] 20 mg PO DAILY #30 tab 09/21/19 amLODIPine [Norvasc] 10 mg PO DAILY #30 tablet 09/21/19 atenoloL [Atenolol] 25 mg PO BID #60 tab 09/21/19 Flecainide [Tambocor] 50 mg PO Q12HR #60 tab 09/22/19 Valsartan [Diovan] 320 mg PO DAILY #30 tab 09/22/19 Triamterene-Hctz 37.5-25Mg 1 each PO DAILY #30 cap 09/23/19 [Dyazide 37.5-25 Capsule] Allergies Allergy/AdvReac Type Severity Reaction Status Date / Time No Known Allergies Allergy Verified 04/25/20 05:38 Review of Systems ROS Statement: Those systems with pertinent positive or pertinent negative responses have been documented in the HPI. ROS Other: All systems not noted in ROS Statement are negative. Past Medical History Past Medical History: Atrial Fibrillation, Hyperlipidemia, Hypertension, Sleep Apnea/CPAP/BIPAP Additional Past Medical History / Comment(s): Pt states he had an arrhythmia found by his PCP about a month ago-he was sent for a cardiology appt-EKG done by PCP not available to pruner. Pt states he has an irregular sleep pattern and will wake up at night gasping and his heart is racing. arthritis History of Any Multi-Drug Resistant Organisms: None Reported Past Surgical History: Orthopedic Surgery Additional Past Surgical History / Comment(s): right knee arthroscopy, cardioversion 10/20 Past Anesthesia/Blood Transfusion Reactions: No Reported Reaction Past Psychological History: No Psychological Hx Reported Past Alcohol Use History: Occasional Past Drug Use History: None Reported - Past Family History Father Family Medical History: Cancer Additional Family Medical History / Comment(s): Father at the age of 76yrs. Mother Additional Family Medical History / Comment(s): Mother had heart murmur. General Exam - General Exam Comments Initial Comments: Physical Exam GENERAL: Patient is well-developed and well-nourished. Patient is nontoxic and well- hydrated and is in no distress. HENT: Normocephalic, Atraumatic. EYES: PERRL, EOMI PULMONARY: Unlabored respirations. No audible rales rhonchi or wheezing was noted. CARDIOVASCULAR: Irregularly irregular, warm and well perfused extremities, no edema in the bilateral lower extremities ABDOMEN: Soft and nontender with normal bowel sounds. SKIN: Skin is clear with no lesions or rashes and otherwise unremarkable. : Deferred NEUROLOGIC: Patient is alert and oriented x3. Moving all extremities spontaneously MUSCULOSKELETAL: Normal extremities with adequate strength and full range of motion. No lower extremity swelling or edema. No calf tenderness. PSYCHIATRIC: Normal psychiatric evaluation. Course Vital Signs 04/25/20 05:35 Temperature 99 F Pulse Rate 63 Respiratory 20 Rate Blood Pressure 160/97 O2 Sat by Pulse 98 Oximetry EKG Findings - EKG Comments: EKG Findings:: EKG was obtained due to complaint of shortness of breath and a patient with known A. fib, EKG was obtained at 5:46 AM, rate is 94 rhythm is A. fib, normal axis, QRS is 90, QTC [address] elevations or depressions no evidence of acute ischemia or infarction Medical Decision Making - Medical Decision Making The patient was seen and evaluated, history is obtained from the patient and at bedside as well as reviewing her record This is an obese 49-year-old male smoker who reports subjective shortness of breath for 2 months, woke up today and had a brief episode of feeling short of breath resolved prior to arrival Vital signs on arrival reveal no hypoxia or tachycardia EKG is A. fib which is baseline for the patient Labs were obtained with no significant abnormalities Chest x-ray was unremarkable These results were discussed with the patient, I encouraged him to wear CPAP at all times, encouraged tobacco cessation, continue follow up with pulmonology and sleep studies. All questions pertaining to care were answered to the best of my ability return parameters were discussed the patient was discharged home in stab le condition. - Lab Data Result diagrams: 04/25/20 06:11 04/25/20 06:11 Lab Results 04/25/20 04/25/20 04/25/20 Range/Units 06:11 06:11 06:11 WBC 7.9 (3.8-10.6) k/uL RBC 5.38 (4.30-5.90) m/uL Hgb 14.2 (13.0-17.5) gm/dL Hct 44.9 (39.0-53.0) % MCV 83.5 (80.0-100.0) fL MCH 26.4 (25.0-35.0) pg MCHC 31.6 (31.0-37.0) g/dL RDW 14.7 (11.5-15.5) % Plt Count 166 (150-450) k/uL Neutrophils % 57 % Lymphocytes % 28 % Monocytes % 7 % Eosinophils % 3 % Basophils % 1 % Neutrophils # 4.5 (1.3-7.7) k/uL Lymphocytes # 2.2 (1.0-4.8) k/uL Monocytes # 0.6 (0-1.0) k/uL Eosinophils # 0.2 (0-0.7) k/uL Basophils # 0.1 (0-0.2) k/uL Sodium 140 (137-145) mmol/L Potassium 3.7 (3.5-5.1) mmol/L Chloride 105 (98-107) mmol/L Carbon Dioxide 27 (22-30) mmol/L Anion Gap 8 mmol/L BUN 12 (9-20) mg/dL Creatinine 0.64 L (0.66-1.25) mg/dL Est GFR (CKD-EPI)AfAm >90 (>60 ml/min/1.73 sqM) Est GFR (CKD-EPI)NonAf >90 (>60 ml/min/1.73 sqM) Glucose 122 H (74-99) mg/dL Calcium 9.9 (8.4-10.2) mg/dL Total Bilirubin 0.5 (0.2-1.3) mg/dL AST 30 (17-59) U/L ALT 22 (4-49) U/L Alkaline Phosphatase 86 (38-126) U/L NT-Pro-B Natriuret Pep 391 pg/mL Total Protein 7.0 (6.3-8.2) g/dL Albumin 4.4 (3.5-5.0) g/dL Disposition Clinical Impression: Afib, Shortness of breath, JOON (obstructive sleep apnea) Disposition: HOME SELF-CARE Condition: Stable Additional Instructions: Continue to follow up with pulmonology, where your CPAP at all times when you're sleeping Return to the emergency department if he develops any worsening shortness of breath, chest pain, palpitations, lightheadedness or any new or concerning symptoms Is patient prescribed a controlled substance at d/c from ED?: No Referrals: Lulu Bejarano MD [Primary Care Provider] - 1-2 days
[2020-04-25 05:38] VITALS: TEMP 99
--- NOTE | 2020-04-25 05:56 | XR ---
EXAMINATION TYPE: XR chest 2V DATE OF EXAM: 04/25/2020 COMPARISON: 09/19/2019 HISTORY: Short of breath TECHNIQUE: FINDINGS: Heart and mediastinum are normal. Lungs are clear. Diaphragm is normal. Bony thorax appears normal. IMPRESSION: Normal chest. No change.
[2020-04-25 06:29] LABS: Basophils # (A) 0.1 k/uL (0-0.2); Basophils % (A) 1 %; Eosinophils # (A) 0.2 k/uL (0-0.7); Eosinophils % (A) 3 %; HCT 44.9 % (39.0-53.0); HGB 14.2 gm/dL (13.0-17.5); Lymphocytes # (A) 2.2 k/uL (1.0-4.8); Lymphocytes % (A) 28 %; MCH 26.4 pg (25.0-35.0); MCHC 31.6 g/dL (31.0-37.0); MCV 83.5 fL (80.0-100.0); Mean Platelet Volume 10.2; Monocytes # (A) 0.6 k/uL (0-1.0); Monocytes % (A) 7 %; Neutrophils # (A) 4.5 k/uL (1.3-7.7); Neutrophils % (A) 57 %; Platelet Count 166 k/uL (150-450); RBC 5.38 m/uL (4.30-5.90); RDW 14.7 % (11.5-15.5); WBC 7.9 k/uL (3.8-10.6)
[2020-04-25 06:50] LABS: ALT 22 U/L (4-49); AST 30 U/L (17-59); African American GFR (CKD) >90 (>60 ml/min/1.73 sqM); Albumin 4.4 g/dL (3.5-5.0); Alkaline Phosphatase 86 U/L (38-126); Anion Gap 8 mmol/L; Blood Urea Nitrogen 12 mg/dL (9-20); Calcium 9.9 mg/dL (8.4-10.2); Carbon Dioxide 27 mmol/L (22-30); Chloride 105 mmol/L (98-107); Glucose 122 mg/dL (74-99); Non-African American GFR(CKD) >90 (>60 ml/min/1.73 sqM); Potassium 3.7 mmol/L (3.5-5.1); Sodium 140 mmol/L (137-145); Total Bilirubin 0.5 mg/dL (0.2-1.3)
[2020-04-25 07:12] VITALS: BP 167/78; PULSE 80; RESP 18
== END 2020-04-25 07:11 | disposition home or self-care (01) ==
LOC: EC 05:30
DX: R06.02 Shortness of breath (principal); I48.91 Unspecified atrial fibrillation; G47.33 Obstructive sleep apnea (adult) (pediatric); E66.9 Obesity, unspecified; F17.200 Nicotine dependence, unspecified, uncomplicated; Z68.41 Body mass index [BMI] 40.0-44.9, adult; Z99.89 Dependence on other enabling machines and devices
CPT/HCPCS: 36415; 71046; 80053; 83880; 85025; 93005; 99285

== ENCOUNTER 2021-02-26 10:14 | Observation (INO) | payer BC ==
[2021-02-26] MEDS ORDERED: ASPIRIN 81 MG PO STA (10:55)
[2021-02-26] MEDS ORDERED: NITROGLYCERIN OINT 1 INCH/GM PACKET TOPICAL STA (10:55)
--- NOTE | 2021-02-26 10:59 | ED ---
General Adult HPI - General Chief complaint: Chest Pain Stated complaint: Chest Pain Time Seen by Provider: 02/26/21 10:34 Source: patient, RN notes reviewed Mode of arrival: ambulatory Limitations: no limitations - History of Present Illness Initial comments: Patient is a pleasant 50-year-old male presenting to the emergency Department with complaints of chest discomfort. Onset of symptoms was this morning. As comfort is mild and persistent. Discomfort feels like pressure. There is some mild associated dyspnea. No nausea. Patient has chronic sweating, unchanged. No leg pain or leg swelling. Patient does have history of atrial fibrillation and previously was cardioverted. Patient is on Eliquis for this. - Related Data Home Medications Medication Instructions Recorded Confirmed Atorvastatin [Lipitor] 10 mg PO HS 02/26/21 02/26/21 Carvedilol [Coreg] 12.5 mg PO BID 02/26/21 02/26/21 HYDROcodone/APAP 10-325MG [[place] 1 tab PO Q4HR PRN 02/26/21 02/26/21 10-325] Triamterene-Hctz 37.5-25Mg 1 cap PO DAILY 02/26/21 02/26/21 [Dyazide 37.5-25 Capsule] Valsartan 320 mg PO DAILY 02/26/21 02/26/21 Previous Rx's Medication Instructions Recorded Apixaban [Eliquis] 5 mg PO BID #60 tab 09/21/19 amLODIPine [Norvasc] 10 mg PO DAILY #30 tablet 09/21/19 Flecainide [Tambocor] 50 mg PO Q12HR #60 tab 09/22/19 Allergies Allergy/AdvReac Type Severity Reaction Status Date / Time No Known Allergies Allergy Verified 02/26/21 11:48 Review of Systems ROS Statement: Those systems with pertinent positive or pertinent negative responses have been documented in the HPI. ROS Other: All systems not noted in ROS Statement are negative. Constitutional: Denies: fever Eyes: Denies: eye pain ENT: Denies: ear pain Respiratory: Denies: cough Cardiovascular: Reports: as per HPI, chest pain Endocrine: Denies: fatigue Gastrointestinal: Denies: abdominal pain Genitourinary: Denies: dysuria Musculoskeletal: Denies: back pain Skin: Denies: rash Neurological: Denies: weakness Past Medical History Past Medical History: Atrial Fibrillation, Hyperlipidemia, Hypertension, Sleep Apnea/CPAP/BIPAP Additional Past Medical History / Comment(s): Pt states he had an arrhythmia found by his PCP about a month ago-he was sent for a cardiology appt-EKG done by PCP not available to bander hand. Pt states he has an irregular sleep pattern and will wake up at night gasping and his heart is racing. arthritis History of Any Multi-Drug Resistant Organisms: None Reported Past Surgical History: Orthopedic Surgery Additional Past Surgical History / Comment(s): right knee arthroscopy, cardioversion 10/20 Past Anesthesia/Blood Transfusion Reactions: No Reported Reaction Past Psychological History: No Psychological Hx Reported Smoking Status: Current every day smoker Past Alcohol Use History: Occasional Past Drug Use History: Marijuana - Past Family History Father Family Medical History: Cancer Additional Family Medical History / Comment(s): Father at the age of 76yrs. Mother Additional Family Medical History / Comment(s): Mother had heart murmur. General Exam Limitations: no limitations General appearance: alert, in no apparent distress Head exam: Present: normocephalic Eye exam: Present: normal appearance Neck exam: Present: normal inspection Respiratory exam: Present: normal lung sounds bilaterally. Absent: chest wall tenderness Cardiovascular Exam: Present: irregular rhythm, normal heart sounds Expanded Peripheral pulses: 2+: Radial (R), Radial (L), Posterior Tibialis (R), Posterior Tibialis (L) GI/Abdominal exam: Present: soft. Absent: tenderness Extremities exam: Present: normal inspection. Absent: pedal edema, calf tenderness Neurological exam: Present: alert Psychiatric exam: Present: normal affect, normal mood Skin exam: Present: normal color Course Vital Signs 02/26/21 02/26/21 10:20 12:35 Temperature 97.9 F Pulse Rate 80 104 H Respiratory 18 16 Rate Blood Pressure 147/95 134/89 O2 Sat by Pulse 100 98 Oximetry EKG Findings - EKG Comments: EKG Findings:: A. fib with RVR, rate 102. QRS 88. QT 338. QTC 440. Normal axis. Normal QRS. Nonspecific T waves. Medical Decision Making - Medical Decision Making Patient reevaluated and resting comfortably in bed. Patient updated on results and plan. Case was discussed with Dr. Guillory, covering Dr. sanderson, who will admit. - Lab Data Result diagrams: 02/26/21 11:06 02/26/21 11:06 Lab Results 02/26/21 02/26/21 02/26/21 Range/Units 11:06 11:06 11:06 WBC 4.9 (3.8-10.6) k/uL RBC 5.16 (4.30-5.90) m/uL Hgb 14.2 (13.0-17.5) gm/dL Hct 43.2 (39.0-53.0) % MCV 83.8 (80.0-100.0) fL MCH 27.5 (25.0-35.0) pg MCHC 32.8 (31.0-37.0) g/dL RDW 14.9 (11.5-15.5) % Plt Count 152 (150-450) k/uL MPV 10.2 Neutrophils % 60 % Lymphocytes % 26 % Monocytes % 7 % Eosinophils % 3 % Basophils % 1 % Neutrophils # 2.9 (1.3-7.7) k/uL Lymphocytes # 1.3 (1.0-4.8) k/uL Monocytes # 0.4 (0-1.0) k/uL Eosinophils # 0.1 (0-0.7) k/uL Basophils # 0.0 (0-0.2) k/uL PT 10.0 (9.0-12.0) sec INR 0.9 (<1.2) APTT 22.1 (22.0-30.0) sec D-Dimer 0.42 (<0.60) mg/L FEU Sodium 143 (137-145) mmol/L Potassium 4.1 (3.5-5.1) mmol/L Chloride 107 (98-107) mmol/L Carbon Dioxide 26 (22-30) mmol/L Anion Gap 10 mmol/L BUN 15 (9-20) mg/dL Creatinine 0.69 (0.66-1.25) mg/dL Est GFR (CKD-EPI)AfAm >90 (>60 ml/min/1.73 sqM) Est GFR (CKD-EPI)NonAf >90 (>60 ml/min/1.73 sqM) Glucose 127 H (74-99) mg/dL Calcium 9.0 (8.4-10.2) mg/dL Magnesium 1.9 (1.6-2.3) mg/dL Total Bilirubin 0.1 L (0.2-1.3) mg/dL AST 23 (17-59) U/L ALT 21 (4-49) U/L Alkaline Phosphatase 69 (38-126) U/L Troponin I (0.000-0.034) ng/mL NT-Pro-B Natriuret Pep pg/mL Total Protein 6.9 (6.3-8.2) g/dL Albumin 4.3 (3.5-5.0) g/dL TSH 1.690 (0.465-4.680) mIU/L Free T4 0.86 (0.78-2.19) ng/dL Free T3 pg/mL 3.7 (2.8-5.3) pg/ml 02/26/21 02/26/21 Range/Units 11:06 11:06 WBC (3.8-10.6) k/uL RBC (4.30-5.90) m/uL Hgb (13.0-17.5) gm/dL Hct (39.0-53.0) % MCV (80.0-100.0) fL MCH (25.0-35.0) pg MCHC (31.0-37.0) g/dL RDW (11.5-15.5) % Plt Count (150-450) k/uL MPV Neutrophils % % Lymphocytes % % Monocytes % % Eosinophils % % Basophils % % Neutrophils # (1.3-7.7) k/uL Lymphocytes # (1.0-4.8) k/uL Monocytes # (0-1.0) k/uL Eosinophils # (0-0.7) k/uL Basophils # (0-0.2) k/uL PT (9.0-12.0) sec INR (<1.2) APTT (22.0-30.0) sec D-Dimer (<0.60) mg/L FEU Sodium (137-145) mmol/L Potassium (3.5-5.1) mmol/L Chloride (98-107) mmol/L Carbon Dioxide (22-30) mmol/L Anion Gap mmol/L BUN (9-20) mg/dL Creatinine (0.66-1.25) mg/dL Est GFR (CKD-EPI)AfAm (>60 ml/min/1.73 sqM) Est GFR (CKD-EPI)NonAf (>60 ml/min/1.73 sqM) Glucose (74-99) mg/dL Calcium (8.4-10.2) mg/dL Magnesium (1.6-2.3) mg/dL Total Bilirubin (0.2-1.3) mg/dL AST (17-59) U/L ALT (4-49) U/L Alkaline Phosphatase (38-126) U/L Troponin I <0.012 (0.000-0.034) ng/mL NT-Pro-B Natriuret Pep 85 pg/mL Total Protein (6.3-8.2) g/dL Albumin (3.5-5.0) g/dL TSH (0.465-4.680) mIU/L Free T4 (0.78-2.19) ng/dL Free T3 pg/mL (2.8-5.3) pg/ml - Radiology Data Radiology results: image reviewed (Chest x-ray reveals patchy atelectasis versus infiltrate, early left base.) Disposition Clinical Impression: Chest pain Disposition: ADMITTED IP TO THIS HOSP Is patient prescribed a controlled substance at d/c from ED?: No Referrals: Lulu Bejarano MD [Primary Care Provider] - 1-2 days Decision Time: 13:08
[2021-02-26 11:19] LABS: Basophils % (A) 1 %; Eosinophils # (A) 0.1 k/uL (0-0.7); Eosinophils % (A) 3 %; HCT 43.2 % (39.0-53.0); HGB 14.2 gm/dL (13.0-17.5); Lymphocytes # (A) 1.3 k/uL (1.0-4.8); Lymphocytes % (A) 26 %; MCH 27.5 pg (25.0-35.0); MCHC 32.8 g/dL (31.0-37.0); MCV 83.8 fL (80.0-100.0); Mean Platelet Volume 10.2; Monocytes # (A) 0.4 k/uL (0-1.0); Monocytes % (A) 7 %; Neutrophils # (A) 2.9 k/uL (1.3-7.7); Neutrophils % (A) 60 %; Platelet Count 152 k/uL (150-450); RBC 5.16 m/uL (4.30-5.90); RDW 14.9 % (11.5-15.5); WBC 4.9 k/uL (3.8-10.6)
--- NOTE | 2021-02-26 11:28 | XR ---
EXAMINATION TYPE: XR chest 2V DATE OF EXAM: 02/26/2021 COMPARISON: 04/25/2020 HISTORY: 50-year-old male with chest pain TECHNIQUE: PA and lateral views FINDINGS: The cardiomediastinal silhouette, aorta, and pulmonary vasculature are within normal limits. Mild pat julio density at the left base. Otherwise, no other consolidation or pleural effusion. IMPRESSION: Mild patchy atelectasis versus early infiltrate at the left base. Correlate with patient's symptoms.
[2021-02-26 11:36] LABS: ALT 21 U/L (4-49); AST 23 U/L (17-59); African American GFR (CKD) >90 (>60 ml/min/1.73 sqM); Albumin 4.3 g/dL (3.5-5.0); Alkaline Phosphatase 69 U/L (38-126); Anion Gap 10 mmol/L; Blood Urea Nitrogen 15 mg/dL (9-20); Carbon Dioxide 26 mmol/L (22-30); Chloride 107 mmol/L (98-107); Glucose 127 mg/dL (74-99); Magnesium 1.9 mg/dL (1.6-2.3); Non-African American GFR(CKD) >90 (>60 ml/min/1.73 sqM); Potassium 4.1 mmol/L (3.5-5.1); Sodium 143 mmol/L (137-145); Total Bilirubin 0.1 mg/dL (0.2-1.3); Total Protein 6.9 g/dL (6.3-8.2)
[2021-02-26 11:48] LABS: INR 0.9 (<1.2); Partial Thromboplastin Time 22.1 sec (22.0-30.0)
[2021-02-26 11:55] LABS: T4, Free (Free Thyroxine) 0.86 ng/dL (0.78-2.19)
[2021-02-26] MEDS ORDERED: NITROGLYCERIN SL TABS 0.4 MG TAB SUBLINGUAL PRN (13:08)
[2021-02-26] MEDS ORDERED: HYDROcodone/APAP 10-325MG 1 EACH TAB PO PRN (14:44)
[2021-02-26] MEDS: NITROGLYCERIN OINT 1 INCH/GM PACKET TOPICAL SCH (17:14)
[2021-02-26] MEDS: carvediloL 12.5 MG TAB PO SCH (17:14)
[2021-02-26] MEDS: ACETAMINOPHEN TAB 325 MG TAB PO PRN (18:23)
--- NOTE | 2021-02-26 20:38 | HP ---
HISTORY AND PHYSICAL DATE OF SERVICE: 02/26/2021. CHIEF COMPLAINT: Chest pain. HISTORY OF PRESENT ILLNESS: The patient is followed by Dr. Bejarano. This 50-year-old gentleman with a past medical history of multiple medical illnesses including atrial fibrillation, hypertension, hyperlipidemia, sleep apnea, being followed by Dr. Bejarano. The patient was noted to have an arrhythmia about a month ago. The patient is in for cardiology appointment. Currently the patient is complaining of chest pain which is felt in the left lower part of the chest which was heavy and sharp in character without much radiation. ( ) with complaint, the patient to [facility] and evaluation and treatment. Patient is also started on Eliquis. The EKG, which was reviewed personally in the ER, showed atrial fibrillation with fast ventricular rate and also ST changes also. There is no history of fever, rigors. No headache, loss of consciousness, seizures at this time. PAST MEDICAL HISTORY: History of recent atrial fibrillation, hypertension, hyperlipidemia, sleep apnea. MEDICATIONS: Norvasc, valsartan, [place], Tambocor, Coreg. Lipitor, Lopressor, dose reviewed. ALLERGIES: None. FAMILY HISTORY: History of father at 76 years. SOCIAL HISTORY: History of smoking. Occasional alcohol intake. REVIEW OF SYSTEMS: ENT: No diminished vision. CARDIOVASCULAR: As mentioned earlier. GI: No nausea. : Mentioned earlier, no dysuria. NERVOUS SYSTEM: No numbness . MUSCULOSKELETAL: Mentioned earlier. ENDOCRINE: No history of diabetes or hypothyroidism. CONSTITUTIONAL: As mentioned. DERMATOLOGY: Negative. RHEUMATOLOGY: Negative. PSYCHIATRY: As mentioned. PHYSICAL EXAMINATION: Pulse 67, blood pressure 130/81, respiration 18, temperature 98.3, pulse ox 99% on room air skin: Normal neck tension. Cardiovascular: No murmur. Respiration: The bases, a few scattered rhonchi no crackles. Abdomen: Soft, nontender. No mass palpable. Legs: No edema, no swelling. Nervous system: Higher functions as mentioned earlier. Moves all 4 limbs. No focal motor deficits. Lymphatic system: No lymph nodes. Skin: No rash. Joints: No active arthropathy. LABS: At this time show CBC within normal limits and glucose 127, bilirubin 0.1. Troponins are negative. ASSESSMENT: 1. Chest pain, possible unstable angina. 2. Atrial fibrillation with fast ventricular rate. 3. Atrial fibrillation history. 4. Hyperlipidemia. 5. History of sleep apnea. 6. History of continued ongoing nicotine dependence. 7. Obesity with body mass of 40.5. RECOMMENDATIONS AND DISCUSSION: This 50-year-old gentleman who presented with multiple medical issues, at this time I recommend to continue current management and treatment otherwise cardiology consultation. Continue with Coreg. Continue the rest of the home medications. Symptomatic treatment. TSH and free T3 and free T4 are normal at this time. Prognosis guarded. Further recommendations to follow. MMODL / IJN: [id number] /
[2021-02-26] MEDS: APIXABAN 5 MG TAB PO SCH (21:51)
[2021-02-26] MEDS: ATORVASTATIN 10 MG TAB PO SCH (21:51)
[2021-02-26] MEDS: FLECAINIDE 50 MG TAB PO SCH (21:52)
[2021-02-27] MEDS: NITROGLYCERIN OINT 1 INCH/GM PACKET TOPICAL SCH ×4 (02:10→17:51)
[2021-02-27] MEDS: TRIAMTERENE-HCTZ 37.5-25MG 1 EACH CAP PO SCH (08:36)
[2021-02-27] MEDS: FLECAINIDE 50 MG TAB PO SCH ×2 (08:37→21:07)
[2021-02-27] MEDS: VALSARTAN 160 MG TAB PO SCH (08:37)
[2021-02-27] MEDS: APIXABAN 5 MG TAB PO SCH ×2 (08:38→21:06)
[2021-02-27] MEDS: carvediloL 12.5 MG TAB PO SCH ×2 (08:38→17:51)
[2021-02-27] MEDS: amLODIPine 10 MG TAB PO SCH (08:46)
[2021-02-27] MEDS ORDERED: ASPIRIN 325 MG TAB PO SCH (09:00)
--- NOTE | 2021-02-27 10:52 | P.CRDCN ---
History of Present Illness History of present illness: HISTORY OF PRESENTING ILLNESS This is a pleasant 50-year-old male past medical history significant for chronic persistent atrial fibrillation (on Elqiuis), dyslipidemia, hypertension, chronic nicotine dependence. He follows in the office with Dr. Reynolds. We have been asked to see in consultation for chest pain. Patient states that he's been having left-sided continuous chest pain since yesterday 02/26. He states that he first woke up with the pain. It is left sided rib pain. It lasted all day. It is sharp at times. It is non-radiating and Non-exertional. No associated symptoms. Aggravating factors include lying on his left side, palpation and deep breathing. Alleviating factors include rest. He does state that he has notice he went back into atrial fibrillation, he believes he has been in atrial fibrillation for about a week now, occasionally has palpitations. He denies s hortness of breath, lower extremity edema, fatigue, weakness, lightheadedness, syncope. Current home cardiac medications include flecainide 50 mg twice a day, amlodipine 10mg daily, valsartan 320mg daily, Dyazide 37.5-25mg daily, Carvedilol 12.5mg BID, atorvastatin 10mg nightly, Eliquis 5mg BID. Current every day smoker, smokes about 10-15 cigarettes a day DIAGNOSTICS EKG reveals atrial fibrillation, HR 102, non-specific ST-T wave abnormalities. Prior EKG in 04/2020 with similar findings Lexiscan stresss test in office 03/2020- Probably normal perfusion study with mild fixed defect in the inferolateral segment secondary to soft tissue attenuation Echocardiogram in office 03/2020- EF 55%, severe concentric hypertrophy, grade 3 diastolic dysfunction, moderately dilated LA, moderate aortic regurgitation, moderate mitral regurgitation, mild tricuspid regurgitation Telemetry tracings indicate atrial fibrillation, heart rate 82-100 Chest xray Mild patchy atelectasis vs early infiltrate at the left base Laboratory reviewed, CBC unremarkable, D-dimer negative, Troponin negative x 3, Sodium 143, K 4.1, BUN 15, sCr 0.69, Mag 1.9, TSH within normal limits, ProBNP 85. covid-19 PCR negative REVIEW OF SYSTEMS At the time of my exam: CONSTITUTIONAL: Denies fever or chills. CARDIOVASCULAR: +chest pain, +palpitations, Denies shortness of breath, orthopnea, PND RESPIRATORY: Denies cough. GASTROINTESTINAL: Denies abdominal pain, diarrhea, constipation, nausea or vomiting. MUSCULOSKELETAL: Denies myalgias. NEUROLOGIC: Denies numbness, tingling, headacbe or weakness. ENDOCRINE: Denies fatigue, weight change, polydipsia or polyurina. GENITOURINARY: Denies burning, hematuria or urgency with micturation. HEMATOLOGIC: Denies history of anemia or bleeding. PHYSICAL EXAMINATION Blood pressure 156/83 heart rate 69 afebrile and maintaining oxygen saturation on 99% on room air. CONSTITUTIONAL: No apparent distress. HEENT: Head is normocephalic. Pupils are equal, round. Sclerae anicteric. Mucous membranes of the mouth are moist. No JVD. No carotid bruit. CHEST EXAMINATION: Lungs are clear to auscultation. No chest wall tenderness is noted on palpation or with deep breathing. HEART EXAMINATION: Irregular rate and rhythm. S1, S2 heard. Systolic ejection murmur ABDOMEN: Soft, nontender. Positive bowel sounds. EXTREMITIES: 2+ peripheral pulses, no lower extremity edema and no calf tenderness. SKIN: intact NEUROLOGIC EXAMINATION: Patient is awake, alert and oriented x3. ASSESSMENT Chest pain, atypical acute coronary syndrome has been ruled out Paroxysmal atrial fibrillation - on Eliquis Hypertension Dyslipidemia PLAN An acute coronary event has been ruled out with no EKG evidence of ischemia and negative cardiac enzymes. Obtain 2D echocardiogram and doppler study to assess cardiac structure and function. We will perform a MANOLO/Cardioversion with Dr. Reynolds today Continue home cardiac medications Smoking cessation discussed and highly recommended. Follow up with Dr. Reynolds once patient is discharged Further recommendations pending clinical course Nurse Practitioner note has been reviewed, I agree with a documented findings and plan of care. Patient was seen and examined. 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 Pt states he has an irregular sleep pattern and will wake up at night gasping and his heart is racing. arthritis History of Any Multi-Drug Resistant Organisms: None Reported Past Surgical History: Orthopedic Surgery Additional Past Surgical History / Comment(s): right knee arthroscopy, cardioversion 10/20 Past Anesthesia/Blood Transfusion Reactions: No Reported Reaction Past Psychological History: No Psychological Hx Reported Smoking Status: Current every day smoker Past Alcohol Use History: Occasional Past Drug Use History: Marijuana - Past Family History Father Family Medical History: Cancer Additional Family Medical History / Comment(s): Father at the age of 76yrs. Mother Additional Family Medical History / Comment(s): Mother had heart murmur. Medications and Allergies Home Medications Medication Instructions Recorded Confirmed Type Apixaban [Eliquis] 5 mg PO BID #60 tab 09/21/19 02/26/21 Rx amLODIPine [Norvasc] 10 mg PO DAILY #30 tablet 09/21/19 02/26/21 Rx Flecainide [Tambocor] 50 mg PO Q12HR #60 tab 09/22/19 02/26/21 Rx Atorvastatin [Lipitor] 10 mg PO HS 02/26/21 02/26/21 History Carvedilol [Coreg] 12.5 mg PO BID 02/26/21 02/26/21 History HYDROcodone/APAP 10-325MG [[place] 1 tab PO Q4HR PRN 02/26/21 02/26/21 History 10-325] Triamterene-Hctz 37.5-25Mg 1 cap PO DAILY 02/26/21 02/26/21 History [Dyazide 37.5-25 Capsule] Valsartan 320 mg PO DAILY 02/26/21 02/26/21 History Allergies Allergy/AdvReac Type Severity Reaction Status Date / Time No Known Allergies Allergy Verified 02/26/21 11:48 Physical Exam Vitals: Vital Signs Temp Pulse Resp BP Pulse Ox 02/26/21 14:09 102 H 02/26/21 12:35 104 H 16 134/89 98 02/26/21 10:20 97.9 F 80 18 147/95 100 Intake and Output 02/25/21 02/26/21 02/26/21 22:59 06:59 14:59 Other: Weight 127.913 kg Results 02/26/21 11:06 02/26/21 11:06 Cardiac Enzymes 02/26/21 02/26/21 02/26/21 Range/Units 11:06 11:06 13:54 AST 23 (17-59) U/L Troponin I <0.012 <0.012 (0.000-0.034) ng/mL Coagulation 02/26/21 Range/Units 11:06 PT 10.0 (9.0-12.0) sec APTT 22.1 (22.0-30.0) sec CBC 02/26/21 Range/Units 11:06 WBC 4.9 (3.8-10.6) k/uL RBC 5.16 (4.30-5.90) m/uL Hgb 14.2 (13.0-17.5) gm/dL Hct 43.2 (39.0-53.0) % Plt Count 152 (150-450) k/uL Comprehensive Metabolic Panel 02/26/21 Range/Units 11:06 Sodium 143 (137-145) mmol/L Potassium 4.1 (3.5-5.1) mmol/L Chloride 107 (98-107) mmol/L Carbon Dioxide 26 (22-30) mmol/L BUN 15 (9-20) mg/dL Creatinine 0.69 (0.66-1.25) mg/dL Glucose 127 H (74-99) mg/dL Calcium 9.0 (8.4-10.2) mg/dL AST 23 (17-59) U/L ALT 21 (4-49) U/L Alkaline Phosphatase 69 (38-126) U/L Total Protein 6.9 (6.3-8.2) g/dL Albumin 4.3 (3.5-5.0) g/dL Current Medications Generic Name Dose Route Start Last Admin Trade Name Freq PRN Reason Stop Dose Admin Hydrocodone Bitart/Acetaminophen 1 each 02/26/21 14:44 Hydrocodone/Apap 10-325mg 1 Each Tab PO Q4HR PRN Pain Amlodipine Besylate 10 mg 02/27/21 09:00 Amlodipine 10 Mg Tab PO DAILY [facility] Apixaban 5 mg 02/26/21 21:00 Apixaban 5 Mg Tab PO BID [facility] Protocol Aspirin 325 mg 02/27/21 09:00 Aspirin 325 Mg Tab PO DAILY [facility] Atorvastatin Calcium 10 mg 02/26/21 21:00 Atorvastatin 10 Mg Tab PO HS [facility] Carvedilol 12.5 mg 02/26/21 17:30 Carvedilol 12.5 Mg Tab PO BID-W/MEALS SIGIFREDO Flecainide Acetate 50 mg 02/26/21 21:00 Flecainide 50 Mg Tab PO Q12HR SIG[facility]REDO Nitroglycerin 0.4 mg 02/26/21 13:08 Nitroglycerin Sl Tabs 0.4 Mg Tab SUBLINGUAL Q5M PRN Chest Pain Nitroglycerin 1 inch 02/26/21 18:00 Nitroglycerin Oint 1 Inch/Gm Packet TOPICAL Q6HR SIGIFREDO Sodium Chloride 10 ml 02/26/21 21:00 Sodium Chloride 0.9% Flush 10 Ml Syringe IV BID SIGIFREDO Triamterene/Hydrochlorothiazide 1 each 02/27/21 09:00 Triamterene-Hctz 37.5-25mg 1 Each Cap PO DAILY [facility] Valsartan 320 mg 02/27/21 09:00 Valsartan 160 Mg Tab PO DAILY [facility] Intake and Output 02/25/21 02/26/21 02/26/21 22:59 06:59 14:59 Other: Weight 127.913 kg Patient Weight 02/27/21 06:59 Weight 127.913 kg 02/26/21 11:06 02/26/21 11:06
[2021-02-27] MEDS ORDERED: PROPOFOL 10 MG/ML 20 ML VIAL IV ONE (11:54)
[2021-02-27] MEDS ORDERED: LIDOCAINE 1% INJ 10MG/ML (20 ML MDV) ONE (11:54)
[2021-02-27] MEDS ORDERED: GLYCOPYRROLATE 0.2 MG/ML 2 ML VIAL ONE (11:54)
[2021-02-27] MEDS ORDERED: SODIUM CHLORIDE 0.9% 1,000 ML IV ONE (12:19)
[2021-02-27 12:33] LABS: Chol/HDL Ratio 4.69; LDL Cholesterol,Calculated 153.4 mg/dL (0.0-131.0); VLDL Calculation 34.6 mg/dL (5.00-40.00)
[2021-02-27] MEDS: ACETAMINOPHEN TAB 325 MG TAB PO PRN ×2 (15:01→21:25)
--- NOTE | 2021-02-27 17:00 | ECHOF ---
Referral Reason:LV function, atrial fibrillation MEASUREMENTS -------- HEIGHT: 177.8 cm WEIGHT: 127.9 kg BP: 156/83 IVSd: 1.9 cm (0.6 - 1.1) LVIDd: 2.4 cm (3.9 - 5.3) LVPWd: 1.7 cm (0.6 - 1.1) IVSs: 2.0 cm LVIDs: 1.4 cm LVPWs: 2.3 cm LAESV Index (A-L): 38.53 ml/m Ao Diam: 3.4 cm (2.0 - 3.7) AV Cusp: 2.4 cm (1.5 - 2.6) LA Diam: 4.1 cm (2.7 - 3.8) AR PHT: 323 ms RAP: 5.00 mmHg RVSP: 15.85 mmHg FINDINGS -------- Atrial fibrillation. This was a technically adequate study. The left ventricular size is normal. There is severe concentric left ventricular hypertrophy. Ove rall left ventricular systolic function is low-normal with, an EF between 50 - 55 %. Left ventricul ar fillimg pressure cannot be estimated due to Atrial fibrillation. The right ventricle is normal in size. LA is moderately dilated 34-39 ml/m2 The right atrium is mildly enlarged. Interatrial and interventricular septum intact. There is mild aortic regurgitation. There is no evidence of aortic stenosis. Mild mitral regurgitation is present. Mild tricuspid regurgitation present. There is no evidence of pulmonary hypertension. The right v entricular systolic pressure, as measured by Doppler, is 15.85mmHg. There is no pulmonic regurgitation present. The aortic root size is normal. IVC Not well visulized. There is no pericardial effusion. CONCLUSIONS -------- 1. The left ventricular size is normal. 2. There is severe concentric left ventricular hypertrophy. 3. Overall left ventricular systolic function is low-normal with, an EF between 50 - 55 %. 4. Left ventricular fillimg pressure cannot be estimated due to Atrial fibrillation. 5. LA is moderately dilated 34-39 ml/m2 6. The right atrium is mildly enlarged. 7. There is mild aortic regurgitation. 8. Mild mitral regurgitation is present. 9. Mild tricuspid regurgitation present. PRODUCTION OFFICER: Maria Luisa Guallpa, [facility]
--- NOTE | 2021-02-27 17:25 | P.PCN ---
Date of Procedure: 02/27/21 Preoperative Diagnosis: Atrial fibrillation Postoperative Diagnosis: Conversion to sinus rhythm Procedure(s) Performed: MANOLO followed by cardioversion Description of Procedure: This patient is admitted to the hospital with atypical fibrillation with controlled ventricular response. Patient had a cardioversion in 2018 patient is on anticoagulation therapy. He is advised to have a MANOLO followed by cardioversion. Procedure: MANOLO: Patient was brought to the lab in a fasting state. He was prepped and draped in the usual fashion. Patient was given IV anesthesia by department of anesthesia. The throat was sprayed with Hurricaine. A lubricated Omni probe was introduced into the oropharynx and advanced into the esophagus. Multiple views were obtained in color, pulsed and continuous with Doppler studies were performed. Saline contrast bubble injection was also performed. Patient tolerated the procedure well. No clot was noted in the left atrial appendage. Patient subsequently underwent cardioversion. Findings: The aortic valve is tricuspid and function normally. The mitral valve was functioning normally with mild regurgitation. Tricuspid valve showed mild regurgitation. The left atrial appendage is free of any clot. The interatrial septum appeared to be intact without any spontaneous shunt. Saline contrast bubble injection did not reveal any crossing of the bubbles. LV showed concentric hypertrophy with preserved LV function. Final impression: #1. No clot in the left atrial appendage. #2. No PFO #3. Preserved LV function with concentric hypertrophy. #5. Grossly normal valvular function. Plan: Proceed with cardioversion. CARDIOVERSION: After completion of the MANOLO, cardioversion was done with anterior posterior paddles, a single shock of 300 J was applied. Patient converted to sinus rhythm. No immediate complications. Plan: Increase the dose of the flecainide 200 mg by mouth twice a day. We'll also get EP evaluation for possible ablation
[2021-02-27 18:37] LABS: Appearance,Urine Clear (Clear); Bilirubin,Urine Negative (Negative); Blood,Urine Negative (Negative); Color,Urine Light Yellow; Glucose,Urine (UA) Negative (Negative); Ketones,Urine Negative (Negative); Leukocyte Esterase,Urine Negative (Negative); Nitrite,Urine Negative (Negative); Protein,Urine Negative (Negative); Specific Gravity,Urine 1.015 (1.001-1.035); Urobilinogen,Urine <2.0 mg/dL (<2.0)
[2021-02-27] MEDS: ATORVASTATIN 10 MG TAB PO SCH (21:06)
--- NOTE | 2021-02-27 21:18 | P.PN ---
Subjective Patient is admitted for atrial fibrillation with rapid ventricular rate presently rate controlled patient will undergo MANOLO cardioversion patient denied any symptoms of shortness of breath patient was having chest pressure secondary to A. fib. Patient had normal ejection fraction of the echocardiogram Constitutional: Denied any fatigue denied any fever. Cardio vascular: denied any chest pain, palpitations Gastrointestinal denied any nausea vomiting Pulmonary: Denied any shortness of breath cough Neurologic denied any new focal deficits All inpatient medications were reviewed and appropriate changes in these medications as dictated in the interval history and assessment and plan. PHYSICAL EXAMINATION: GENERAL: The patient is alert and oriented x3, not in any acute distress. Well developed, well nourished. HEENT: Pupils are round and equally reacting to light. EOMI. No scleral icterus. No conjunctival pallor. Normocephalic, atraumatic. No pharyngeal erythema. No thyromegaly. CARDIOVASCULAR: S1 and S2 present. No murmurs, rubs, or gallops. irregular irregular PULMONARY: Chest is clear to auscultation, no wheezing or crackles. ABDOMEN: Soft, nontender, nondistended, normoactive bowel sounds. No palpable organomegaly. MUSCULOSKELETAL: No joint swelling or deformity. EXTREMITIES: No cyanosis, clubbing, or pedal edema. NEUROLOGICAL: Gross neurological examination did not reveal any focal deficits. SKIN: No rashes. Assessment and plan Atrial fibrillation with rapid ventricular rate on admission presently rate cont rolled continue with present medication patient will undergo T cardioversion today continue with anticoagulation with Eliquis -Chest pains probably secondary to A. fib -Hyperlipidemia -Hypertension -Obesity sleep apnea -Nicotine dependence: Counseling was provided -On-call abuse: Counseling was provided patient doesn't have any withdrawals at this time Objective - Vital Signs Vital signs: Vital Signs Temp 98.1 F 02/27/21 13:15 Pulse 103 H 02/27/21 16:15 Resp 16 02/27/21 13:15 BP 134/88 02/27/21 16:15 Pulse Ox 98 02/27/21 13:15 Intake & Output 02/27/21 02/27/21 02/28/21 06:59 18:59 06:59 Intake Total 100 Balance 100 Weight 127.913 kg Intake: IV 100 Other: # Voids 1 1 - Labs CBC & Chem 7: 02/26/21 11:06 02/26/21 11:06 Labs: Abnormal Lab Results - Last 24 Hours (Table) 02/26/21 Range/Units 11:06 Triglycerides 173.0 H (0.0-149.0) mg/dL Cholesterol 239 H (0-200) mg/dL LDL Cholesterol, Calc 153.4 H (0.0-131.0) mg/dL
[2021-02-28] MEDS: NITROGLYCERIN OINT 1 INCH/GM PACKET TOPICAL SCH ×2 (03:47→08:13)
[2021-02-28 07:30] VITALS: BP 155/98; PULSE 60; RESP 16; TEMP 98.6
[2021-02-28] MEDS: APIXABAN 5 MG TAB PO SCH (08:59)
[2021-02-28] MEDS: carvediloL 12.5 MG TAB PO SCH (08:59)
[2021-02-28] MEDS: FLECAINIDE 50 MG TAB PO SCH (08:59)
[2021-02-28] MEDS: TRIAMTERENE-HCTZ 37.5-25MG 1 EACH CAP PO SCH (09:00)
[2021-02-28] MEDS: amLODIPine 10 MG TAB PO SCH (09:00)
[2021-02-28] MEDS: VALSARTAN 160 MG TAB PO SCH (09:00)
--- NOTE | 2021-02-28 13:57 | P.PN ---
Subjective This is a pleasant 50-year-old male past medical history significant for chronic persistent atrial fibrillation (on Elqiuis), dyslipidemia, hypertension, chronic nicotine dependence. He follows in the office with Dr. Reynolds. We have been asked to see in consultation for chest pain. Patient states that he's been having left-sided continuous chest pain since yesterday 02/26. He states that he first woke up with the pain. It is left sided rib pain. It lasted all day. It is sharp at times. It is non-radiating and Non-exertional. No associated symptoms. Aggravating factors include lying on his left side, palpation and deep breathing. Alleviating factors include rest. He does state that he has notice he went back into atrial fibrillation, he believes he has been in atrial fibrillation for about a week now, occasionally has palpitations. He denies shortness of breath, lower extremity edema, fatigue, weakness, lightheadedness, syncope. Current home cardiac medications include flecainide 50 mg twice a day, amlodipine 10mg daily, valsartan 320mg daily, Dyazide 37.5-25mg daily, Carvedilol 12.5mg BID, atorvastatin 10mg nightly, Eliquis 5mg BID. Current every day smoker, smokes about 10-15 cigarettes a day DIAGNOSTICS EKG reveals atrial fibrillation, HR 102, non-specific ST-T wave abnormalities. Prior EKG in 04/2020 with similar findings Lexiscan stresss test in office 03/2020- Probably normal perfusion study with mild fixed defect in the inferolateral segment secondary to soft tissue attenuation Echocardiogram in office 03/2020- EF 55%, severe concentric hypertrophy, grade 3 diastolic dysfunction, moderately dilated LA, moderate aortic regurgitation, moderate mitral regurgitation, mild tricuspid regurgitation Chest xray Mild patchy atelectasis vs early infiltrate at the left base Laboratory reviewed, CBC unremarkable, D-dimer negative, Troponin negative x 3, Sodium 143, K 4.1, BUN 15, sCr 0.69, Mag 1.9, TSH within normal limits, ProBNP 85. covid-19 PCR negative 02/27/21: Patient underwent MANOLO cardioversion with successful conversion to sinus rhythm. MANOLO resulted no clot in left atrial appendage, no PFO, preserved LV function with concentric hypertrophy, grossly normal valvular function. Echocardiogram revealed patient HR fibrillation, severe, concentric left ventricular hypertrophy, EF 50-55%, LA is mildly dilated, mild mitral regurgitation, mild aortic regurgitation, mild tricuspid regurgitation. 02/28/21: Patient seen and examined at bedside, no acute distress. Denies any chest pain. Patient is currently maintaining sinus mechanism heart rate 50 to 60s. No further episodes atrial fibrillation. Blood pressure 133/85, afebrile, maintaining oxygen saturations 100% on room air PHYSICAL EXAMINATION Blood pressure 156/83 heart rate 69 afebrile and maintaining oxygen saturation on 99% on room air. CONSTITUTIONAL: No apparent distress. HEENT: No JVD. No carotid bruit. CHEST EXAMINATION: Lungs are clear to auscultation. No chest wall tenderness is noted on palpation or with deep breathing. HEART EXAMINATION: Irregular rate and rhythm. S1, S2 heard. Systolic ejection murmur ABDOMEN: Soft, nontender. Positive bowel sounds. EXTREMITIES: 2+ peripheral pulses, no lower extremity edema and no calf tenderness. NEUROLOGIC EXAMINATION: Patient is awake, alert and oriented x3. ASSESSMENT Chest pain, atypical acute coronary syndrome has been ruled out Paroxysmal atrial fibrillation - on Eliquis. s/p MANOLO cardioversion 02/27/[address] Reynolds was successful. Patient currently maintaining sinus mechanism Hypertension Dyslipidemia PLAN An acute coronary event has been ruled out with no EKG evidence of ischemia and negative cardiac enzymes. We will increase patient's flecainide 100 mg twice a day. Continue other home cardiac medications Patient was discussed with Dr. Hernandez, he will see the patient as an outpatient to discuss further reccommendations in regards to patients atrial fibrillation. This was discussed with the patient. Patient will also Follow up with Dr. Reynolds his primary credit operations processor on discharge From cardiology perspective, patient stable to be discharged home. Nurse Practitioner note has been reviewed, I agree with a documented findings and plan of care. Patient was seen and examined. Objective - Vital Signs Vital signs: Vital Signs Temp 98.6 F 02/28/21 07:00 Pulse 60 02/28/21 07:53 Resp 16 02/28/21 07:53 BP 155/98 02/28/21 07:00 Pulse Ox 99 02/28/21 07:00 Intake & Output 02/27/21 02/28/21 02/28/21 18:59 06:59 18:59 Intake Total 100 480 118 Balance 100 480 118 Weight 127.913 kg Intake: IV 100 Oral 480 118 Other: # Voids 1 2 - Labs CBC & Chem 7: 02/26/21 11:06 02/26/21 11:06
--- NOTE | 2021-02-28 17:04 | P.DS ---
Providers Date of admission: 02/26/21 13:08 Attending physician: Aicha Guillory Consults: 02/26/21 13:08 Consult Physician Urgent Consulting Provider: Sosa Reynolds Consult Reason/Comments: cp Do you want consulting provider notified?: Yes 02/27/21 12:19 Consult Physician Routine Consulting Provider: Agapito Hernandez Consult Reason/Comments: atrial fibrillation/ablation recommendations Do you want consulting provider notified?: Yes Primary care physician: Carlee Lawson [place] [facility] Course: Patient is admitted for atrial fibrillation with rapid ventricular rate presently rate controlled patient will undergo MANOLO cardioversion patient denied any symptoms of shortness of breath patient was having chest pressure secondary to A. fib. Patient had normal ejection fraction of the echocardiogram 02/28/2021 Patient is status post a cardioversion patient is sinus rhythm clinically doing well will be discharged today. PHYSICAL EXAMINATION: GENERAL: The patient is alert and oriented x3, not in any acute distress. Well developed, well nourished. HEENT: Pupils are round and equally reacting to light. EOMI. No scleral icterus. No conjunctival pallor. Normocephalic, atraumatic. No pharyngeal erythema. No thyromegaly. CARDIOVASCULAR: S1 and S2 present. No murmurs, rubs, or gallops. irregular irregular PULMONARY: Chest is clear to auscultation, no wheezing or crackles. ABDOMEN: Soft, nontender, nondistended, normoactive bowel sounds. No palpable organomegaly. MUSCULOSKELETAL: No joint swelling or deformity. EXTREMITIES: No cyanosis, clubbing, or pedal edema. NEUROLOGICAL: Gross neurological examination did not reveal any focal deficits. SKIN: No rashes. Assessment and plan Atrial fibrillation with rapid ventricular rate on admission presently sinus rhythm status post cardioversion continue with anticoagulation with Eliquis -Chest pains probably secondary to A. fib -Hyperlipidemia -Hypertension -Obesity sleep apnea -Nicotine dependence: Counseling was provided -Alcohol abuse: Counseling was provided patient doesn't have any withdrawals at this time Plan - Discharge Summary Discharge Rx Participant: Yes New Discharge Prescriptions: New Nitroglycerin Sl Tabs [Nitrostat] 0.4 mg SUBLINGUAL Q5M PRN #30 tab PRN Reason: Chest Pain Flecainide [Tambocor] 100 mg PO Q12HR #60 tab Continue Apixaban [Eliquis] 5 mg PO BID #60 tab amLODIPine [Norvasc] 10 mg PO DAILY #30 tablet HYDROcodone/APAP 10-325MG [[place] 10-325] 1 tab PO Q4HR PRN PRN Reason: Pain Valsartan 320 mg PO DAILY Triamterene-Hctz 37.5-25Mg [Dyazide 37.5-25 Capsule] 1 cap PO DAILY Carvedilol [Coreg] 12.5 mg PO BID Atorvastatin [Lipitor] 10 mg PO HS Discontinued Flecainide [Tambocor] 50 mg PO Q12HR #60 tab Discharge Medication List Apixaban [Eliquis] 5 mg PO BID #60 tab 09/21/19 [Rx] amLODIPine [Norvasc] 10 mg PO DAILY #30 tablet 09/21/19 [Rx] Atorvastatin [Lipitor] 10 mg PO HS 02/26/21 [History] Carvedilol [Coreg] 12.5 mg PO BID 02/26/21 [History] HYDROcodone/APAP 10-325MG [[place] 10-325] 1 tab PO Q4HR PRN 02/26/21 [History] Triamterene-Hctz 37.5-25Mg [Dyazide 37.5-25 Capsule] 1 cap PO DAILY 02/26/21 [History] Valsartan 320 mg PO DAILY 02/26/21 [History] Flecainide [Tambocor] 100 mg PO Q12HR #60 tab 02/28/21 [Rx] Nitroglycerin Sl Tabs [Nitrostat] 0.4 mg SUBLINGUAL Q5M PRN #30 tab 02/28/21 [Rx] Follow up Appointment(s)/Referral(s): Agapito Hernandez MD [STAFF PHYSICIAN] - 1 Week (Office will call with appointment and time.) Lulu Bejarano MD [Primary Care Provider] - 03/06/21 8:40 am Sosa Reynolds MD [STAFF PHYSICIAN] - 03/15/21 3:15 pm Patient Instructions/Handouts: A-fib (Atrial Fibrillation) (DC), How to Stop Smoking (DC) Discharge Disposition: HOME SELF-CARE
== END 2021-02-28 11:36 | disposition home or self-care (01) ==
LOC: EC 10:14 → 6NMEDSUR 13:08
PROVIDERS: ADMIT Hospitalist; ATTEND Hospitalist
DX: I48.19 Other persistent atrial fibrillation (principal); R07.81 Pleurodynia; R07.89 Other chest pain; E78.5 Hyperlipidemia, unspecified; Z20.822 Contact with and (suspected) exposure to COVID-19; F10.10 Alcohol abuse, uncomplicated; I10 Essential (primary) hypertension; J98.11 Atelectasis; E66.9 Obesity, unspecified; G47.30 Sleep apnea, unspecified; F17.210 Nicotine dependence, cigarettes, uncomplicated; I08.0 Rheumatic disorders of both mitral and aortic valves; Z79.899 Other long term (current) drug therapy; Z79.01 Long term (current) use of anticoagulants; M19.90 Unspecified osteoarthritis, unspecified site; Z80.9 Family history of malignant neoplasm, unspecified; Z82.49 Family history of ischemic heart disease and other diseases of the circulatory system
CPT/HCPCS: 93005 ×2; 99285; 36415; 93312; 93320; 93306; 93325; 92960; 85379; 84439; 84481; 83880; 80061; 80053; 83735; 84443; 84484; 85025; 85610; 85730; 81003; 87635; 71046; G0378 ×3; J2001; J2704

== ENCOUNTER → 2021-10-31 | Outpatient (CLI) | payer BC ==
[2021-10-31 23:18] LABS: Basophils # (A) 0.04 X 10*3/uL (0.00-0.10); Basophils % (A) 0.7 %; Eosinophils # (A) 0.17 X 10*3/uL (0.04-0.35); Eosinophils % (A) 3.1 %; HCT 42.5 % (39.6-50.0); HGB 13.1 g/dL (13.0-17.0); Immature Grans, Automated 0.4 %; Lymphocytes # (A) 1.88 X 10*3/uL (0.90-5.00); Lymphocytes % (A) 34.4 %; MCHC 30.8 g/dL (32.0-37.0); MCV 84.3 fL (80.0-97.0); Monocytes % (A) 9.1 %; NRBC Per 100 WBC 0 /100 WBCS (0.0-0.0); Neutrophils # (A) 2.86 X 10*3/uL (1.80-7.70); Neutrophils % (A) 52.3 %; Platelet Count 184 X 10*3/uL (140-440); RBC 5.04 X 10*6/uL (4.40-5.60); RDW 15.9 % (11.5-14.5); WBC 5.47 X 10*3/uL (4.50-10.00)
[2021-10-31 23:30] LABS: African American GFR (CKD) 113.6 (60.0-200.0); BUN/Creat Ratio 16.72 Ratio (12.00-20.00); Calcium 9.4 mg/dL (8.7-10.3); Potassium 4.1 mmol/L (3.5-5.5)
[2021-11-01 00:02] LABS: INR 0.99 (0.90-1.11); Prothrombin Time 10.9 sec (9.9-11.9)
== END | disposition home or self-care (01) ==
LOC: LABWHC1 15:24
PROVIDERS: ATTEND Internal Medicine Cardiovascular Disease
DX: I48.0 Paroxysmal atrial fibrillation (principal)
CPT/HCPCS: 36415; 80048; 85025; 85610

== ENCOUNTER 2022-04-17 15:14 | Emergency (ER) | payer BC ==
[2022-04-17] MEDS ORDERED: ONDANSETRON 4 MG/2 ML VIAL IVP STA (16:11)
[2022-04-17 16:35] LABS: Basophils % (A) 0 %; Eosinophils # (A) 0.1 k/uL (0-0.7); Eosinophils % (A) 2 %; HCT 44.9 % (39.0-53.0); HGB 14.4 gm/dL (13.0-17.5); Lymphocytes # (A) 1.6 k/uL (1.0-4.8); Lymphocytes % (A) 26 %; MCV 84.4 fL (80.0-100.0); Mean Platelet Volume 10.4; Monocytes # (A) 0.4 k/uL (0-1.0); Monocytes % (A) 6 %; Neutrophils # (A) 3.9 k/uL (1.3-7.7); Neutrophils % (A) 62 %; Platelet Count 178 k/uL (150-450); RBC 5.32 m/uL (4.30-5.90); RDW 15.2 % (11.5-15.5); WBC 6.3 k/uL (3.8-10.6)
--- NOTE | 2022-04-17 16:39 | XR ---
EXAMINATION TYPE: XR chest 1V portable DATE OF EXAM: 04/17/2022 COMPARISON: 02/26/2021 HISTORY: Chest pain TECHNIQUE: FINDINGS: Heart and mediastinum are normal. Lungs are clear. Diaphragm is normal. Bony thorax appears normal IMPRESSION: Normal chest. No change from
[2022-04-17 16:50] LABS: ALT 18 U/L (4-49); AST 22 U/L (17-59); African American GFR (CKD) >90 (>60 ml/min/1.73 sqM); Albumin 4.3 g/dL (3.5-5.0); Alkaline Phosphatase 75 U/L (38-126); Anion Gap 12 mmol/L; Blood Urea Nitrogen 19 mg/dL (9-20); Calcium 9.4 mg/dL (8.4-10.2); Carbon Dioxide 26 mmol/L (22-30); Chloride 103 mmol/L (98-107); Glucose 119 mg/dL (74-99); Lipase 89 U/L (23-300); Magnesium 1.5 mg/dL (1.6-2.3); Non-African American GFR(CKD) >90 (>60 ml/min/1.73 sqM); Potassium 3.7 mmol/L (3.5-5.1); Sodium 141 mmol/L (137-145); Total Bilirubin 0.3 mg/dL (0.2-1.3); Total Protein 6.8 g/dL (6.3-8.2)
[2022-04-17 17:27] VITALS: BP 141/87; PULSE 66; RESP 16; TEMP 97.6
--- NOTE | 2022-04-17 17:53 | ED ---
Nausea/Vomiting/Diarrhea HPI - General Chief complaint: Nausea/Vomiting/Diarrhea Stated complaint: reaction to medication Time Seen by Provider: 04/17/22 15:37 Source: patient Mode of arrival: ambulatory Limitations: no limitations - History of Present Illness Initial comments: Patient states that he started a new medication recently and now he is having some nausea and vomiting and cramps. These could be side effect medication. He has no chest pain or shortness of breath. He has no palpitations. He has no belly or back pain. He has no weakness. He has no lightheadedness. He has no paresthesias. - Related Data Home Medications Medication Instructions Recorded Confirmed Atorvastatin [Lipitor] 10 mg PO HS 02/26/21 02/26/21 HYDROcodone/APAP 10-325MG [[place] 1 tab PO Q4HR PRN 02/26/21 02/26/21 10-325] Triamterene-Hctz 37.5-25Mg 1 cap PO DAILY 02/26/21 02/26/21 [Dyazide 37.5-25 Capsule] Valsartan 320 mg PO DAILY 02/26/21 02/26/21 carvediloL [Coreg] 12.5 mg PO BID 02/26/21 02/26/21 Previous Rx's Medication Instructions Recorded Apixaban [Eliquis] 5 mg PO BID #60 tab 09/21/19 amLODIPine [Norvasc] 10 mg PO DAILY #30 tablet 09/21/19 Flecainide [Tambocor] 100 mg PO Q12HR #60 tab 02/28/21 Nitroglycerin Sl Tabs [Nitrostat] 0.4 mg SUBLINGUAL Q5M PRN #30 tab 02/28/21 Allergies Allergy/AdvReac Type Severity Reaction Status Date / Time No Known Allergies Allergy Verified 04/17/22 15:29 Review of Systems ROS Statement: Those systems with pertinent positive or pertinent negative responses have been documented in the HPI. ROS Other: All systems not noted in ROS Statement are negative. 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 Pt states he has an irregular sleep pattern and will wake up at night gasping and his heart is racing. arthritis History of Any Multi-Drug Resistant Organisms: None Reported Past Surgical History: Orthopedic Surgery Additional Past Surgical History / Comment(s): right knee arthroscopy, cardioversion 10/20 Past Anesthesia/Blood Transfusion Reactions: No Reported Reaction Past Psychological History: No Psychological Hx Reported Smoking Status: Current every day smoker Past Alcohol Use History: Occasional Past Drug Use History: Marijuana - Past Family History Father Family Medical History: Cancer Additional Family Medical History / Comment(s): Father at the age of 76yrs. Mother Additional Family Medical History / Comment(s): Mother had heart murmur. General Exam Limitations: no limitations General appearance: alert, in no apparent distress Head exam: Present: atraumatic, normocephalic, normal inspection Eye exam: Present: normal appearance, PERRL, EOMI. Absent: scleral icterus, conjunctival injection, periorbital swelling ENT exam: Present: normal exam, mucous membranes moist Neck exam: Present: normal inspection. Absent: tenderness, meningismus, lymphadenopathy Respiratory exam: Present: normal lung sounds bilaterally. Absent: respiratory distress, wheezes, rales, rhonchi, stridor Cardiovascular Exam: Present: regular rate, normal rhythm, normal heart sounds. Absent: systolic murmur, diastolic murmur, rubs, gallop, clicks GI/Abdominal exam: Present: soft, normal bowel sounds. Absent: distended, tenderness, guarding, rebound, rigid Extremities exam: Present: normal inspection, full ROM, normal capillary refill. Absent: tenderness, pedal edema, joint swelling, calf tenderness Back exam: Present: normal inspection Neurological exam: Present: alert, oriented X3, CN II-XII intact Psychiatric exam: Present: normal affect, normal mood Skin exam: Present: warm, dry, intact, normal color. Absent: rash Course Vital Signs 04/17/22 04/17/22 15:25 17:26 Temperature 98.3 F 97.6 F Pulse Rate 61 66 Respiratory 20 16 Rate Blood Pressure 140/80 141/87 O2 Sat by Pulse 96 98 Oximetry Medical Decision Making - Medical Decision Making Patient states that he isn't feeling great. His labs are all normal. Troponin is negative. Imaging is negative. Covid test is negative. There is no evidence of any acute emergency or any new process. Symptoms could be related to that new medication patient is taking, and I advised him to discuss this with his primary care doctor. Otherwise the patient tolerates oral intake and his repeat exam is normal. He is stable for discharge. - Lab Data Result diagrams: 04/17/22 16:25 04/17/22 16:25 Lab Results 04/17/22 04/17/22 04/17/22 Range/Units 16:25 16:25 16:25 WBC 6.3 (3.8-10.6) k/uL RBC 5.32 (4.30-5.90) m/uL Hgb 14.4 (13.0-17.5) gm/dL Hct 44.9 (39.0-53.0) % MCV 84.4 (80.0-100.0) fL MCH 27.0 (25.0-35.0) pg MCHC 32.0 (31.0-37.0) g/dL RDW 15.2 (11.5-15.5) % Plt Count 178 (150-450) k/uL MPV 10.4 Neutrophils % 62 % Lymphocytes % 26 % Monocytes % 6 % Eosinophils % 2 % Basophils % 0 % Neutrophils # 3.9 (1.3-7.7) k/uL Lymphocytes # 1.6 (1.0-4.8) k/uL Monocytes # 0.4 (0-1.0) k/uL Eosinophils # 0.1 (0-0.7) k/uL Basophils # 0.0 (0-0.2) k/uL Sodium 141 (137-145) mmol/L Potassium 3.7 (3.5-5.1) mmol/L Chloride 103 (98-107) mmol/L Carbon Dioxide 26 (22-30) mmol/L Anion Gap 12 mmol/L BUN 19 (9-20) mg/dL Creatinine 0.69 (0.66-1.25) mg/dL Est GFR (CKD-EPI)AfAm >90 (>60 ml/min/1.73 sqM) Est GFR (CKD-EPI)NonAf >90 (>60 ml/min/1.73 sqM) Glucose 119 H (74-99) mg/dL Calcium 9.4 (8.4-10.2) mg/dL Magnesium 1.5 L (1.6-2.3) mg/dL Total Bilirubin 0.3 (0.2-1.3) mg/dL AST 22 (17-59) U/L ALT 18 (4-49) U/L Alkaline Phosphatase 75 (38-126) U/L Troponin I <0.012 (0.000-0.034) ng/mL NT-Pro-B Natriuret Pep pg/mL Total Protein 6.8 (6.3-8.2) g/dL Albumin 4.3 (3.5-5.0) g/dL Lipase 89 (23-300) U/L Coronavirus (PCR) (Not Detectd) 04/17/22 04/17/22 Range/Units 16:25 16:51 WBC (3.8-10.6) k/uL RBC (4.30-5.90) m/uL Hgb (13.0-17.5) gm/dL Hct (39.0-53.0) % MCV (80.0-100.0) fL MCH (25.0-35.0) pg MCHC (31.0-37.0) g/dL RDW (11.5-15.5) % Plt Count (150-450) k/uL MPV Neutrophils % % Lymphocytes % % Monocytes % % Eosinophils % % Basophils % % Neutrophils # (1.3-7.7) k/uL Lymphocytes # (1.0-4.8) k/uL Monocytes # (0-1.0) k/uL Eosinophils # (0-0.7) k/uL Basophils # (0-0.2) k/uL Sodium (137-145) mmol/L Potassium (3.5-5.1) mmol/L Chloride (98-107) mmol/L Carbon Dioxide (22-30) mmol/L Anion Gap mmol/L BUN (9-20) mg/dL Creatinine (0.66-1.25) mg/dL Est GFR (CKD-EPI)AfAm (>60 ml/min/1.73 sqM) Est GFR (CKD-EPI)NonAf (>60 ml/min/1.73 sqM) Glucose (74-99) mg/dL Calcium (8.4-10.2) mg/dL Magnesium (1.6-2.3) mg/dL Total Bilirubin (0.2-1.3) mg/dL AST (17-59) U/L ALT (4-49) U/L Alkaline Phosphatase (38-126) U/L Troponin I (0.000-0.034) ng/mL NT-Pro-B Natriuret Pep 94 pg/mL Total Protein (6.3-8.2) g/dL Albumin (3.5-5.0) g/dL Lipase (23-300) U/L Coronavirus (PCR) Not Detected (Not Detectd) Twelve-lead EKG shows ventricular rate 107 bpm, no P waves are present, no ST elevation or depression, interpreted by me as atrial fibrillation. 04/17/22 17:52 Disposition Clinical Impression: Nausea and vomiting Disposition: HOME SELF-CARE Condition: Good Instructions (If sedation given, give patient instructions): Acute Nausea and Vomiting (ED) Is patient prescribed a controlled substance at d/c from ED?: No Referrals: Lulu Bejaarno MD [Primary Care Provider] - 1-2 days
== END 2022-04-17 18:13 | disposition home or self-care (01) ==
LOC: EC 15:14
DX: R11.2 Nausea with vomiting, unspecified (principal); E78.5 Hyperlipidemia, unspecified; I10 Essential (primary) hypertension; F17.200 Nicotine dependence, unspecified, uncomplicated; Z20.822 Contact with and (suspected) exposure to COVID-19
CPT/HCPCS: 36415; 93005; 83880; 80053; 83690; 83735; 84484; 85025; 87635; 71045; 99284; 96374; J2405

== ENCOUNTER 2022-07-24 00:39 | Emergency (ER) | payer BC ==
[2022-07-24 00:44] VITALS: TEMP 97.8
[2022-07-24] MEDS ORDERED: SODIUM CHLORIDE 0.9% 500 ML 500 ML IV STA (00:54)
--- NOTE | 2022-07-24 00:56 | ED ---
Arrhythmia/Palpitations HPI - General Chief Complaint: Arrhythmia/Palpitations Stated Complaint: Heart Fluttering Time Seen by Provider: 07/24/22 00:53 Source: patient, RN notes reviewed, old records reviewed Mode of arrival: ambulatory Limitations: no limitations - History of Present Illness Initial Comments: This is a 52-year-old male DF for evaluation patient presents today for evaluation of lightheadedness dizziness chest pain no real shortness of breath. Patient states he knows his heart is out of rhythm. He gets this often. No travel show sick contacts no fevers MD Complaint: rapid heart beat, "heart racing", palpitations, atrial fibrillation -: hour(s) Context: occurred during rest, occurred during exertion Arrhythmia History: atrial fibrillation Associated Symptoms: chest pain, shortness of breath Treatments Prior to Arrival: other (0) - Related Data Home Medications Medication Instructions Recorded Confirmed Atorvastatin [Lipitor] 10 mg PO HS 02/26/21 02/26/21 HYDROcodone/APAP 10-325MG [[place] 1 tab PO Q4HR PRN 02/26/21 02/26/21 10-325] Triamterene-Hctz 37.5-25Mg 1 cap PO DAILY 02/26/21 02/26/21 [Dyazide 37.5-25 Capsule] Valsartan 320 mg PO DAILY 02/26/21 02/26/21 carvediloL [Coreg] 12.5 mg PO BID 02/26/21 02/26/21 Previous Rx's Medication Instructions Recorded Apixaban [Eliquis] 5 mg PO BID #60 tab 09/21/19 amLODIPine [Norvasc] 10 mg PO DAILY #30 tablet 09/21/19 Flecainide [Tambocor] 100 mg PO Q12HR #60 tab 02/28/21 Nitroglycerin Sl Tabs [Nitrostat] 0.4 mg SUBLINGUAL Q5M PRN #30 tab 02/28/21 Allergies Allergy/AdvReac Type Severity Reaction Status Date / Time No Known Allergies Allergy Verified 07/24/22 00:40 Review of Systems ROS Statement: Those systems with pertinent positive or pertinent negative responses have been documented in the HPI. ROS Other: All systems not noted in ROS Statement are negative. 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 Pt states he has an irregular sleep pattern and will wake up at night gasping and his heart is racing. arthritis History of Any Multi-Drug Resistant Organisms: None Reported Past Surgical History: Orthopedic Surgery Additional Past Surgical History / Comment(s): right knee arthroscopy, cardioversion 10/20 Past Anesthesia/Blood Transfusion Reactions: No Reported Reaction Past Psychological History: No Psychological Hx Reported Smoking Status: Current every day smoker Past Alcohol Use History: Occasional Past Drug Use History: Marijuana - Past Family History Father Family Medical History: Cancer Additional Family Medical History / Comment(s): Father at the age of 76yrs. Mother Additional Family Medical History / Comment(s): Mother had heart murmur. General Exam Limitations: no limitations General appearance: alert, in no apparent distress, anxious Head exam: Present: atraumatic, normocephalic, normal inspection Eye exam: Present: normal appearance, PERRL, EOMI. Absent: scleral icterus, conjunctival injection, periorbital swelling ENT exam: Present: normal exam, mucous membranes moist Neck exam: Present: normal inspection. Absent: tenderness, meningismus, lymphadenopathy Respiratory exam: Present: normal lung sounds bilaterally. Absent: respiratory distress, wheezes, rales, rhonchi, stridor Cardiovascular Exam: Present: tachycardia, irregular rhythm, normal heart sounds. Absent: systolic murmur, diastolic murmur, rubs, gallop, clicks GI/Abdominal exam: Present: soft, normal bowel sounds. Absent: distended, tenderness, guarding, rebound, rigid Extremities exam: Present: normal inspection, full ROM, normal capillary refill. Absent: tenderness, pedal edema, joint swelling, calf tenderness Back exam: Present: normal inspection Neurological exam: Present: alert, oriented X3, CN II-XII intact Psychiatric exam: Present: normal affect, normal mood Skin exam: Present: warm, dry, intact, normal color. Absent: rash Course Vital Signs 07/24/22 07/24/22 07/24/22 00:42 01:39 02:30 Temperature 97.8 F Pulse Rate 116 H 133 H 72 Pulse Rate [ T [place] ] Respiratory 18 20 18 Rate Blood Pressure 153/111 118/85 122/81 Blood Pressure [Left Arm] O2 Sat by Pulse 98 100 98 Oximetry 07/24/22 07/24/22 07/24/22 02:40 02:46 02:50 Temperature Pulse Rate 86 93 Pulse Rate [ 84 T [place] ] Respiratory 24 18 23 Rate Blood Pressure 122/81 117/76 Blood Pressure 117/76 [Left Arm] O2 Sat by Pulse 98 98 97 Oximetry 07/24/22 07/24/22 03:00 03:21 Temperature Pulse Rate 94 81 Pulse Rate [ T [place] ] Respiratory 22 18 Rate Blood Pressure 134/94 124/99 Blood Pressure [Left Arm] O2 Sat by Pulse 98 100 Oximetry - Reevaluation(s) Reevaluation #1: 07/24/22 03:39 Attic record is reviewed Reevaluation #2: 07/24/22 03:39 Patient symptoms improved here in the ER no chest pain Reevaluation #3: 07/24/22 03:39 patient informed results questions answered EKG Findings - EKG Comments: EKG Findings:: EKG A. fib with RVR 118 QRS 89 QTC 368 Medical Decision Making - Medical Decision Making 49 male to the emergency department for evaluation of recurrent chest pain, found to be in A. fib with RVR which is resolved here in the ER. Patient feels better and can be discharged home - Lab Data Result diagrams: 07/24/22 01:03 07/24/22 01:03 Lab Results 07/24/22 07/24/22 07/24/22 Range/Units 01:03 01:03 01:03 WBC 6.9 (3.8-10.6) k/uL RBC 5.20 (4.30-5.90) m/uL Hgb 14.4 (13.0-17.5) gm/dL Hct 44.4 (39.0-53.0) % MCV 85.3 (80.0-100.0) fL MCH 27.7 (25.0-35.0) pg MCHC 32.5 (31.0-37.0) g/dL RDW 14.8 (11.5-15.5) % Plt Count 192 (150-450) k/uL MPV 10.9 Neutrophils % 56 % Lymphocytes % 29 % Monocytes % 7 % Eosinophils % 4 % Basophils % 1 % Neutrophils # 3.9 (1.3-7.7) k/uL Lymphocytes # 2.0 (1.0-4.8) k/uL Monocytes # 0.5 (0-1.0) k/uL Eosinophils # 0.3 (0-0.7) k/uL Basophils # 0.1 (0-0.2) k/uL PT 10.1 (9.0-12.0) sec INR 0.9 (<1.2) APTT 24.2 (22.0-30.0) sec Sodium 142 (137-145) mmol/L Potassium 3.7 (3.5-5.1) mmol/L Chloride 107 (98-107) mmol/L Carbon Dioxide 28 (22-30) mmol/L Anion Gap 7 mmol/L BUN 22 H (9-20) mg/dL Creatinine 0.72 (0.66-1.25) mg/dL Est GFR (CKD-EPI)AfAm >90 (>60 ml/min/1.73 sqM) Est GFR (CKD-EPI)NonAf >90 (>60 ml/min/1.73 sqM) Glucose 177 H (74-99) mg/dL Plasma Lactic Acid Christopher (0.7-2.0) mmol/L Calcium 9.8 (8.4-10.2) mg/dL Phosphorus 4.9 H (2.5-4.5) mg/dL Magnesium 1.7 (1.6-2.3) mg/dL Total Bilirubin 0.2 (0.2-1.3) mg/dL AST 19 (17-59) U/L ALT 22 (4-49) U/L Alkaline Phosphatase 74 (38-126) U/L Troponin I (0.000-0.034) ng/mL NT-Pro-B Natriuret Pep pg/mL Total Protein 6.5 (6.3-8.2) g/dL Albumin 4.2 (3.5-5.0) g/dL TSH 2.880 (0.465-4.680) mIU/L 07/24/22 07/24/22 07/24/22 Range/Units 01:03 01:03 01:03 WBC (3.8-10.6) k/uL RBC (4.30-5.90) m/uL Hgb (13.0-17.5) gm/dL Hct (39.0-53.0) % MCV (80.0-100.0) fL MCH (25.0-35.0) pg MCHC (31.0-37.0) g/dL RDW (11.5-15.5) % Plt Count (150-450) k/uL MPV Neutrophils % % Lymphocytes % % Monocytes % % Eosinophils % % Basophils % % Neutrophils # (1.3-7.7) k/uL Lymphocytes # (1.0-4.8) k/uL Monocytes # (0-1.0) k/uL Eosinophils # (0-0.7) k/uL Basophils # (0-0.2) k/uL PT (9.0-12.0) sec INR (<1.2) APTT (22.0-30.0) sec Sodium (137-145) mmol/L Potassium (3.5-5.1) mmol/L Chloride (98-107) mmol/L Carbon Dioxide (22-30) mmol/L Anion Gap mmol/L BUN (9-20) mg/dL Creatinine (0.66-1.25) mg/dL Est GFR (CKD-EPI)AfAm (>60 ml/min/1.73 sqM) Est GFR (CKD-EPI)NonAf (>60 ml/min/1.73 sqM) Glucose (74-99) mg/dL Plasma Lactic Acid Christopher 1.8 (0.7-2.0) mmol/L Calcium (8.4-10.2) mg/dL Phosphorus (2.5-4.5) mg/dL Magnesium (1.6-2.3) mg/dL Total Bilirubin (0.2-1.3) mg/dL AST (17-59) U/L ALT (4-49) U/L Alkaline Phosphatase (38-126) U/L Troponin I 0.013 (0.000-0.034) ng/mL NT-Pro-B Natriuret Pep 117 pg/mL Total Protein (6.3-8.2) g/dL Albumin (3.5-5.0) g/dL TSH (0.465-4.680) mIU/L - Radiology Data Radiology results: report reviewed (Chest x-ray is negative for acute disease), image reviewed Disposition Clinical Impression: Atrial fibrillation, Atrial fibrillation with RVR Disposition: HOME SELF-CARE Condition: Good Instructions (If sedation given, give patient instructions): Heart Palpitations (ED) Is patient prescribed a controlled substance at d/c from ED?: No Referrals: Lulu Bejarano MD [Primary Care Provider] - 1-2 days Time of Disposition: 03:40
[2022-07-24 01:19] LABS: Basophils # (A) 0.1 k/uL (0-0.2); Basophils % (A) 1 %; Eosinophils # (A) 0.3 k/uL (0-0.7); Eosinophils % (A) 4 %; HCT 44.4 % (39.0-53.0); HGB 14.4 gm/dL (13.0-17.5); Lymphocytes % (A) 29 %; MCH 27.7 pg (25.0-35.0); MCHC 32.5 g/dL (31.0-37.0); MCV 85.3 fL (80.0-100.0); Mean Platelet Volume 10.9; Monocytes # (A) 0.5 k/uL (0-1.0); Monocytes % (A) 7 %; Neutrophils # (A) 3.9 k/uL (1.3-7.7); Neutrophils % (A) 56 %; Platelet Count 192 k/uL (150-450); RDW 14.8 % (11.5-15.5); WBC 6.9 k/uL (3.8-10.6)
[2022-07-24 01:34] LABS: ALT 22 U/L (4-49); AST 19 U/L (17-59); African American GFR (CKD) >90 (>60 ml/min/1.73 sqM); Albumin 4.2 g/dL (3.5-5.0); Alkaline Phosphatase 74 U/L (38-126); Anion Gap 7 mmol/L; Blood Urea Nitrogen 22 mg/dL (9-20); Calcium 9.8 mg/dL (8.4-10.2); Carbon Dioxide 28 mmol/L (22-30); Chloride 107 mmol/L (98-107); Glucose 177 mg/dL (74-99); Magnesium 1.7 mg/dL (1.6-2.3); Non-African American GFR(CKD) >90 (>60 ml/min/1.73 sqM); Phosphorus 4.9 mg/dL (2.5-4.5); Potassium 3.7 mmol/L (3.5-5.1); Sodium 142 mmol/L (137-145); Total Bilirubin 0.2 mg/dL (0.2-1.3); Total Protein 6.5 g/dL (6.3-8.2)
[2022-07-24 01:43] LABS: INR 0.9 (<1.2); Partial Thromboplastin Time 24.2 sec (22.0-30.0); Prothrombin Time 10.1 sec (9.0-12.0)
--- NOTE | 2022-07-24 02:01 | XR ---
EXAMINATION TYPE: XR chest 1V portable DATE OF EXAM: 07/24/2022 COMPARISON: 04/17/2022 HISTORY: Atrial fibrillation TECHNIQUE: Single view FINDINGS: Heart and mediastinum are normal. Lungs are clear. Diaphragm is normal. Bony thorax is inta ct. IMPRESSION: Normal chest. No change
[2022-07-24] MEDS ORDERED: MAGNESIUM OXIDE 400 MG TAB PO STA ×2 (02:03)
[2022-07-24] MEDS ORDERED: METOPROLOL TARTRATE 5 MG/5 ML VIAL IVP STA (02:03)
[2022-07-24] MEDS ORDERED: DILTIAZEM 5 MG/ML 5 ML VIAL IVP STA (02:03)
[2022-07-24 03:22] VITALS: BP 124/99; PULSE 81; RESP 18
== END 2022-07-24 03:50 | disposition home or self-care (01) ==
LOC: EC 00:39
DX: I48.20 Chronic atrial fibrillation, unspecified (principal); I10 Essential (primary) hypertension; F17.200 Nicotine dependence, unspecified, uncomplicated; F12.90 Cannabis use, unspecified, uncomplicated; E78.5 Hyperlipidemia, unspecified; Z79.01 Long term (current) use of anticoagulants; Z79.899 Other long term (current) drug therapy
CPT/HCPCS: 36415; 71045; 80053; 83605; 83735; 83880; 84100; 84443; 84484; 85025; 85610; 85730; 93005; 96361; 96374; 99285

== ENCOUNTER 2023-01-08 18:34 | Emergency (ER) | payer BC ==
[2023-01-08 18:51] VITALS: TEMP 98.1
--- NOTE | 2023-01-08 19:31 | XR ---
EXAMINATION TYPE: XR chest 2V DATE OF EXAM: 01/08/2023 6:58 PM COMPARISON: Chest radiographs from 07/24/2022. TECHNIQUE: XR chest 2V Frontal and lateral views of the chest. CLINICAL INDICATION:Male, 52 years old with history of fall; FINDINGS: Lungs/Pleura: There is no evidence of pleural effusion, focal consolidation, or pneumothorax. Pulmonary vascularity: Unremarkable. Heart/mediastinum: Cardiomediastinal silhouette is unremarkable. Musculoskeletal: No acute osseous pathology. IMPRESSION: No acute cardiopulmonary disease/process.
[2023-01-08] MEDS ORDERED: ACET/COD 300 MG/30 MG STARTER PACK 6 TAB BTL PO STA (20:10)
--- NOTE | 2023-01-08 20:10 | ED ---
Fall HPI - General Chief Complaint: Fall Stated Complaint: Rib Pain Time Seen by Provider: 01/08/23 19:48 Source: patient, RN notes reviewed Mode of arrival: ambulatory Limitations: no limitations - History of Present Illness Initial Comments: 52-year-old male presents emergency Department chief complaint of right-sided rib injury. Patient states that his playing basketball yesterday when he fell on asphalt. Patient has abrasion to his face and states he has no head injury with headache dizziness no neck pain no blurred vision. Patient states he has right-sided rib pain hurts to cough, take a deep inspiration. No abdominal pain no back pain. - Related Data Home Medications Medication Instructions Recorded Confirmed Atorvastatin [Lipitor] 10 mg PO HS 02/26/21 02/26/21 HYDROcodone/APAP 10-325MG [[place] 1 tab PO Q4HR PRN 02/26/21 02/26/21 10-325] Triamterene-Hctz 37.5-25Mg 1 cap PO DAILY 02/26/21 02/26/21 [Dyazide 37.5-25 Capsule] Valsartan 320 mg PO DAILY 02/26/21 02/26/21 carvediloL [Coreg] 12.5 mg PO BID 02/26/21 02/26/21 Previous Rx's Medication Instructions Recorded Apixaban [Eliquis] 5 mg PO BID #60 tab 09/21/19 amLODIPine [Norvasc] 10 mg PO DAILY #30 tablet 09/21/19 Flecainide [Tambocor] 100 mg PO Q12HR #60 tab 02/28/21 Nitroglycerin Sl Tabs [Nitrostat] 0.4 mg SUBLINGUAL Q5M PRN #30 tab 02/28/21 Allergies Allergy/AdvReac Type Severity Reaction Status Date / Time No Known Allergies Allergy Verified 01/08/23 18:51 Review of Systems ROS Statement: Those systems with pertinent positive or pertinent negative responses have been documented in the HPI. ROS Other: All systems not noted in ROS Statement are negative. 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 Pt states he has an irregular sleep pattern and will wake up at night gasping and his heart is racing. arthritis History of Any Multi-Drug Resistant Organisms: None Reported Past Surgical History: Orthopedic Surgery Additional Past Surgical History / Comment(s): right knee arthroscopy, cardioversion 10/20 Past Anesthesia/Blood Transfusion Reactions: No Reported Reaction Past Psychological History: No Psychological Hx Reported Smoking Status: Current every day smoker Past Alcohol Use History: Occasional Past Drug Use History: Marijuana - Past Family History Father Family Medical History: Cancer Additional Family Medical History / Comment(s): Father at the age of 76yrs. Mother Additional Family Medical History / Comment(s): Mother had heart murmur. General Exam Limitations: no limitations General appearance: alert, in no apparent distress Head exam: Present: atraumatic, normocephalic, normal inspection Eye exam: Present: normal appearance, PERRL, EOMI, other (Right-sided facial abrasion noted). Absent: scleral icterus, conjunctival injection, periorbital swelling ENT exam: Present: normal exam, normal oropharynx, mucous membranes moist Neck exam: Present: normal inspection, full ROM. Absent: tenderness, meningismus, lymphadenopathy Respiratory exam: Present: normal lung sounds bilaterally, chest wall tenderness. Absent: respiratory distress, wheezes, rales, rhonchi, stridor Cardiovascular Exam: Present: regular rate, normal rhythm, normal heart sounds. Absent: systolic murmur, diastolic murmur, rubs, gallop, clicks GI/Abdominal exam: Present: soft, normal bowel sounds. Absent: distended, tenderness, guarding, rebound, rigid Course Vital Signs 01/08/23 01/08/23 18:48 20:15 Temperature 98.1 F Pulse Rate 76 70 Respiratory 16 17 Rate Blood Pressure 150/87 154/80 O2 Sat by Pulse 98 99 Oximetry Medical Decision Making - Medical Decision Making MWas pt. sent in by a medical professional or institution (, PA, INTERNATIONAL MARKETING INTERN, urgent care, hospital, or [facility]...) When possible be specific @ -No Did you speak to anyone other than the patient for history (EMS, parent, family, police, friend...)? What history was obtained from this source @ -No Did you review nursing and triage notes (agree or disagree)? Why? @ -I reviewed and agree with nursing and triage notes Were old charts reviewed (outside hosp., previous admission, EMS record, old EKG, old radiological studies, urgent care reports/EKG's, [facility] records)? Report findings @ -No old charts were reviewed Differential Diagnosis (chest pain, altered mental status, abdominal pain women, abdominal pain men, vaginal bleeding, weakness, fever, dyspnea, syncope, headache, dizziness, GI bleed, back pain, seizure, CVA, palpatations, mental health, musculoskeletal)? @ -Rib contusion, rib fracture, pneumothorax EKG interpreted by me (3pts min.). @ -As above X-rays interpreted by me (1pt min.). @ -Chest x-ray shows no acute process. CT interpreted by me (1pt min.). @ -None done U/S interpreted by me (1pt. min.). @ -None done What testing was considered but not performed or refused? (CT, X-rays, U/S, labs)? Why? @ -None What meds were considered but not given or refused? Why? @ -None Did you discuss the management of the patient with other professionals (professionals i.e. , PA, INTERNATIONAL MARKETING INTERN, lab, RT, psych nurse, manager social, management trainee marketing, teacher, giving officer, oil field caser)? Give summary @ -No Was smoking cessation discussed for >3mins.? @ -No Was critical care preformed (if so, how long)? @ -No Were there social determinants of health that impacted care today? How? (Homelessness, low income, unemployed, alcoholism, drug addiction, transportation, low edu. Level, literacy, decrease access to med. care, intermediate, rehab)? @ -No Was there de-escalation of care discussed even if they declined (Discuss DNR or withdrawal of care, Hospice)? DNR status @ -No What co-morbidities impacted this encounter? (DM, HTN, Smoking, COPD, CAD, Cancer, CVA, ARF, Chemo, Hep., AIDS, mental health diagnosis, sleep apnea, morbid obesity)? @ -None Was patient admitted / discharged? Hospital course, mention meds given and route, prescriptions, significant lab abnormalities, going to OR and other pertinent info. @ -Discharge chest x-ray shows no acute process patient has a rib contusion discussed possibility of subtle not identified rib fracture. Undiagnosed new problem with uncertain prognosis? @ -No Drug Therapy requiring intensive monitoring for toxicity (Heparin, Nitro, Insulin, Cardizem)? @ -No Were any procedures done? @ -No Diagnosis/symptom? @ -. rib Contusion right Acute, or Chronic, or Acute on Chronic? @ -Acute Uncomplicated (without systemic symptoms) or Complicated (systemic symptoms)? @ -Uncomplicated Side effects of treatment? @ -No Exacerbation, Progression, or Severe Exacerbation? @ -No Poses a threat to life or bodily function? How? (Chest pain, [place], MA, pneumonia, PE, COPD, DKA, ARF, appy, cholecystitis, CVA, Diverticulitis, Homicidal, Suicidal, threat to staff... and all critical care pts) @ -No Disposition Clinical Impression: Fall, Contusion of rib on right side Disposition: HOME SELF-CARE Condition: Stable Instructions (If sedation given, give patient instructions): Rib Contusion (ED) Additional Instructions: Please return to the Emergency Department if symptoms worsen or any other concerns. Is patient prescribed a controlled substance at d/c from ED?: No Referrals: Lulu Bejarano MD [Primary Care Provider] - 1-2 days Time of Disposition: 20:10
[2023-01-08 20:17] VITALS: BP 154/80; PULSE 70; RESP 17
== END 2023-01-08 20:16 | disposition home or self-care (01) ==
LOC: EC 18:34
DX: S20.211A Contusion of right front wall of thorax, initial encounter (principal); S00.81XA Abrasion of other part of head, initial encounter; I10 Essential (primary) hypertension; E78.5 Hyperlipidemia, unspecified; F17.200 Nicotine dependence, unspecified, uncomplicated; F12.90 Cannabis use, unspecified, uncomplicated; Z79.899 Other long term (current) drug therapy; W19.XXXA Unspecified fall, initial encounter; Y93.67 Activity, basketball
CPT/HCPCS: 71046; 99284

== ENCOUNTER → 2023-02-04 | Outpatient (CLI) | payer BC ==
--- NOTE | 2023-02-11 11:36 | US ---
EXAMINATION TYPE: US arterial LE single level DATE OF EXAM: 02/04/2023 12:29 PM CLINICAL INDICATION: Male, 52 years old with history of M79.662 pain lt lower limb, m79.661 pain rt l ower; pain in legs when standing. History of: Smoker: Yes Hypertension: Yes Diabetic: Yes Hyperlipidemia: Yes TIA/CVA: No Previous Vascular Surgery: No CAD: No NV: No Vascular Ulcers: No Claudication: No Gangrene: No Doppler Waveforms: Right: Multiphasic Left: Multiphasic Ankle-Brachial Indices: Right: 1.19 Left: 1.23 Toe Brachial Indices: Right: 0.66 Left: 0.68 IMPRESSION: 1. Normal KIT indices. 2. Borderline normal TBI indices correlate for mild atherosclerotic disease of the infrapopliteal vas culature.
== END | disposition home or self-care (01) ==
LOC: RADUSWWP 11:41
PROVIDERS: ATTEND Internal Medicine
DX: M79.662 Pain in left lower leg (principal)
CPT/HCPCS: 93922

== ENCOUNTER 2023-05-15 08:05 | Emergency (ER) | payer BC ==
--- NOTE | 2023-05-15 08:19 | ED ---
General Adult HPI - General Stated complaint: urogenital Time Seen by Provider: 05/15/23 08:18 Source: patient, RN notes reviewed Mode of arrival: ambulatory Limitations: no limitations - History of Present Illness Initial comments: 52-year-old male presents emergency Department with chief complaint of right testicular swelling and pain. Patient states has been present last few days. Patient states he did have an episode nausea vomiting. Denies any trauma denies anything like this in the past no dysuria no hematuria. - Related Data Home Medications Medication Instructions Recorded Confirmed Atorvastatin [Lipitor] 10 mg PO HS 02/26/21 02/26/21 HYDROcodone/APAP 10-325MG [[place] 1 tab PO Q4HR PRN 02/26/21 02/26/21 10-325] Triamterene-Hctz 37.5-25Mg 1 cap PO DAILY 02/26/21 02/26/21 [Dyazide 37.5-25 Capsule] Valsartan 320 mg PO DAILY 02/26/21 02/26/21 carvediloL [Coreg] 12.5 mg PO BID 02/26/21 02/26/21 Previous Rx's Medication Instructions Recorded Apixaban [Eliquis] 5 mg PO BID #60 tab 09/21/19 amLODIPine [Norvasc] 10 mg PO DAILY #30 tablet 09/21/19 Flecainide [Tambocor] 100 mg PO Q12HR #60 tab 02/28/21 Nitroglycerin Sl Tabs [Nitrostat] 0.4 mg SUBLINGUAL Q5M PRN #30 tab 02/28/21 Sulfamethox-Tmp 800-160Mg [Bactrim 1 each PO Q12HR #14 tab 05/15/23 Ds] Allergies Allergy/AdvReac Type Severity Reaction Status Date / Time No Known Allergies Allergy Verified 05/15/23 08:17 Review of Systems ROS Statement: Those systems with pertinent positive or pertinent negative responses have been documented in the HPI. ROS Other: All systems not noted in ROS Statement are negative. 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 Pt states he has an irregular sleep pattern and will wake up at night gasping and his heart is racing. arthritis History of Any Multi-Drug Resistant Organisms: None Reported Past Surgical History: Orthopedic Surgery Additional Past Surgical History / Comment(s): right knee arthroscopy, cardioversion 10/20 Past Anesthesia/Blood Transfusion Reactions: No Reported Reaction Past Psychological History: No Psychological Hx Reported Smoking Status: Current every day smoker Past Alcohol Use History: Occasional Past Drug Use History: Marijuana - Past Family History Father Family Medical History: Cancer Additional Family Medical History / Comment(s): Father at the age of 76yrs. Mother Additional Family Medical History / Comment(s): Mother had heart murmur. General Exam - General Exam Comments Initial Comments: Visual Physical Exam Vital signs reviewed General: Well-appearing, nontoxic, no acute distress. Head: Normocephalic, atraumatic Eyes: PERRLA, EOMI ENT: Airway patent Chest: Nonlabored breathing Skin: No visual rash, normal skin tone Neuro: Alert and oriented 3 Musculoskeletal: No gross abnormalities Limitations: no limitations General appearance: alert, in no apparent distress Head exam: Present: atraumatic, normocephalic, normal inspection Respiratory exam: Present: normal lung sounds bilaterally. Absent: respiratory distress, wheezes, rales, rhonchi, stridor Cardiovascular Exam: Present: regular rate, normal rhythm, normal heart sounds. Absent: systolic murmur, diastolic murmur, rubs, gallop, clicks GI/Abdominal exam: Present: soft, normal bowel sounds. Absent: distended, tenderness, guarding, rebound, rigid exam: Present: scrotal swelling Course Vital Signs 05/15/23 05/15/23 08:17 10:22 Temperature 98.9 F 98.2 F Pulse Rate 80 75 Respiratory 16 16 Rate Blood Pressure 124/74 145/90 O2 Sat by Pulse 100 99 Oximetry Medical Decision Making - Medical Decision Making I performed a quick note portion of this chart signed Catracho Russell PA-C Was pt. sent in by a medical professional or institution (MAYRA Barillas, DIRECTOR UNIVERSITY, urgent care, hospital, or correction...) When possible be specific @ -No Did you speak to anyone other than the patient for history (EMS, parent, family, police, friend...)? What history was obtained from this source @ -No Did you review nursing and triage notes (agree or disagree)? Why? @ -I reviewed and agree with nursing and triage notes Were old charts reviewed (outside hosp., previous admission, EMS record, old EKG, old radiological studies, urgent care reports/EKG's, correction records)? Report findings @ -No old charts were reviewed Differential Diagnosis (chest pain, altered mental status, abdominal pain women, abdominal pain men, vaginal bleeding, weakness, fever, dyspnea, syncope, headache, dizziness, GI bleed, back pain, seizure, CVA, palpatations, mental health, musculoskeletal)? @ -Epididymitis, hydrocele, varicocele, UTI EKG interpreted by me (3pts min.). @ -None X-rays interpreted by me (1pt min.). @ -None done CT interpreted by me (1pt min.). @ -None done U/S interpreted by me (1pt. min.). @ -Ultrasound shows hydrocele, epididymitis on the right What testing was considered but not performed or refused? (CT, X-rays, U/S, labs)? Why? @ -None What meds were considered but not given or refused? Why? @ -None Did you discuss the management of the patient with other professionals (professionals i.e. , PA, [employer]IV[employer], lab, RT, psych nurse, manager social responsibility, veterinary medicine scientist, teacher, resident medical officer, telehealth case manager)? Give summary @ -No Was smoking cessation discussed for >3mins.? @ -No Was critical care preformed (if so, how long)? @ -No Were there social determinants of health that impacted care today? How? (Homelessness, low income, unemployed, alcoholism, drug addiction, transportati on, low edu. Level, literacy, decrease access to med. care, correction, rehab)? @ -No Was there de-escalation of care discussed even if they declined (Discuss DNR or withdrawal of care, Hospice)? DNR status @ -No What co-morbidities impacted this encounter? (DM, HTN, Smoking, COPD, CAD, Cancer, CVA, ARF, Chemo, Hep., AIDS, mental health diagnosis, sleep apnea, morbid obesity)? @ -None Was patient admitted / discharged? Hospital course, mention meds given and route, prescriptions, significant lab abnormalities, going to OR and other pertinent info. @ -discharge patient given Rocephin, azithromycin patient is discharged with Bactrim for UTI, epididymitis Undiagnosed new problem with uncertain prognosis? @ -No Drug Therapy requiring intensive monitoring for toxicity (Heparin, Nitro, Insulin, Cardizem)? @ -No Were any procedures done? @ -No Diagnosis/symptom? @ -Epididymitis and UTI Acute, or Chronic, or Acute on Chronic? @ -Acute Uncomplicated (without systemic symptoms) or Complicated (systemic symptoms)? @ -Uncomplicated Side effects of treatment? @ -No Exacerbation, Progression, or Severe Exacerbation? @ -No Poses a threat to life or bodily function? How? (Chest pain, [place], [place], pneumonia, PE, COPD, DKA, ARF, appy, cholecystitis, CVA, Diverticulitis, Homicidal, Suicidal, threat to staff... and all critical care pts) @ -No - Lab Data Lab Results 05/15/23 Range/Units 08:33 Urine Color Yellow Urine Appearance Clear (Clear) Urine pH 6.5 (5.0-8.0) Ur Specific [place] 1.023 (1.001-1.035) Urine Protein 1+ H (Negative) Urine Glucose (UA) Negative (Negative) Urine Ketones Negative (Negative) Urine Blood Negative (Negative) Urine Nitrite Negative (Negative) Urine Bilirubin Negative (Negative) Urine Urobilinogen <2.0 (<2.0) mg/dL Ur Leukocyte Esterase Large H (Negative) Urine RBC 6 H (0-5) /hpf Urine WBC 41 H (0-5) /hpf Urine Bacteria Moderate H (None) /hpf Urine Mucus Moderate H (None) /hpf Disposition Clinical Impression: Epididymitis, Hydrocele Disposition: HOME SELF-CARE Condition: Stable Instructions (If sedation given, give patient instructions): Epididymo-Orchitis (ED) Additional Instructions: Please return to the Emergency Department if symptoms worsen or any other concerns. Prescriptions: Sulfamethox-Tmp 800-160Mg [Bactrim Ds] 1 each PO Q12HR #14 tab Is patient prescribed a controlled substance at d/c from ED?: No Referrals: Lulu Bejarano MD [Primary Care Provider] - 1-2 days Arnold Rich MD [STAFF PHYSICIAN] - 1-2 days Time of Disposition: 09:44
[2023-05-15 08:45] LABS: Appearance,Urine Clear (Clear); Bacteria,Urine Moderate /hpf; Bilirubin,Urine Negative (Negative); Blood,Urine Negative (Negative); Color,Urine Yellow; Glucose,Urine (UA) Negative (Negative); Ketones,Urine Negative (Negative); Leukocyte Esterase,Urine Large (Negative); Mucus,Urine Moderate /hpf; Nitrite,Urine Negative (Negative); PH, Urine 6.5 (5.0-8.0); Protein,Urine 1+ (Negative); RBC,Urine 6 /hpf (0-5); Specific Gravity,Urine 1.023 (1.001-1.035); Urobilinogen,Urine <2.0 mg/dL (<2.0); WBC,Urine 41 /hpf (0-5)
--- NOTE | 2023-05-15 09:18 | US ---
EXAMINATION TYPE: US scrotum with doppler. Grayscale and color Doppler Duplex imaging performed of t he scrotum. DATE OF EXAM: 05/15/2023 COMPARISON: NONE CLINICAL INDICATION: Male, 52 years old with history of pain, swelling; Pain and swelling within righ t testicle x a couple days. Swelling. EXAM MEASUREMENTS: TESTICLES: Right Testicle: 4.8 x 3.8 x 3.5 cm. Increased vascularity. Left Testicle: 4.2 x 2.7 x 3.0 cm EPIDIDYMIS HEAD: Right Epididymis: 0.8 x 0.6 x 1.3 cm Left Epididymis: 0.8 x 1.0 x 1.3 cm Doppler performed to assess for testicular vascularity; bilateral color flow and waveforms are seen. Presence of hydroceles: Yes, right: 2.7 x 2.6 x 0.8, Left: 2.4 x 0.8 x 0.6 cm. Presence of varicoceles: None seen. *Numerous tiny hyperechoic foci seen within bilateral testicles. Larger hyperechoic area within lef t testicle seen measures: 0.2 x 0.2 x 0.1 cm. There appears to be increased vascularity within the right testicle when compared to left* IMPRESSION: 1. I cannot exclude right-sided epididymoorchitis. 2. Testicular microlithiasis.
[2023-05-15] MEDS ORDERED: cefTRIAXone 1,000 MG VIAL (IM USE) IM STA (09:41)
[2023-05-15] MEDS ORDERED: AZITHROMYCIN 250 MG TAB PO STA (09:44)
[2023-05-15] MEDS ORDERED: ACET/COD 300 MG/30 MG STARTER PACK 6 TAB BTL PO STA (10:14)
[2023-05-15 15:58] VITALS: BP 145/90; PULSE 75; RESP 16; TEMP 98.2
[2023-05-16 14:42] LABS: N. gonorrhoeae,PCR Negative (Negative)
[2023-05-16 14:43] LABS: C. trachomatis,PCR Negative (Negative)
== END 2023-05-15 10:25 | disposition home or self-care (01) ==
LOC: EC 08:05
DX: N45.1 Epididymitis (principal); N43.3 Hydrocele, unspecified; I48.91 Unspecified atrial fibrillation; I10 Essential (primary) hypertension; E78.5 Hyperlipidemia, unspecified; F17.200 Nicotine dependence, unspecified, uncomplicated; F12.90 Cannabis use, unspecified, uncomplicated; Z79.899 Other long term (current) drug therapy
CPT/HCPCS: 81001; 87491; 87591; 87086; 93975; 76870; 99284; 96372; J0696

== ENCOUNTER → 2023-08-06 | Outpatient (CLI) | payer OTHER ==
[~2023-08-06] MED LIST changes: -BENZOCAINE SPRAY 100 APPLIC/CAN TOPICAL PRN; +REGADENOSON 0.4 MG/5 ML SYRINGE IV PRN; -SODIUM CHLORIDE 0.9% 1,000 ML IV SCH
--- NOTE | 2023-08-06 11:55 | NM ---
EXAMINATION TYPE: NM stress lexiscan cardiolite DATE OF EXAM: 08/06/2023 COMPARISON: NONE CLINICAL INDICATION: Male, 53 years old with history of Z51.81 THERAPEUTIC DRUG LEVEL MONITORING; his tory of hypertension and prior tobacco use with chest pain. History of diabetes. TECHNIQUE: After the intravenous administration of 10.2 mCi Tc 99m Sestamibi - Cardiolite resting SP ECT images acquired 52 minutes post injection. The patient received 0.4mg Lexiscan, 25.3 mCi Tc 99m Sestamibi - Stress images obtained [address] injection FINDINGS: Review of stress and rest SPECT images demonstrates diminished radiotracer uptake involving the infer ior lateral wall of the left ventricle suspicious for old infarct. No convincing evidence for reversi ble ischemia. Gated analysis shows normal wall motion with an estimated left ventricular ejection fra ction of 55 %. IMPRESSION: As above.
--- NOTE | 2023-08-06 12:24 | CA ---
Lexiscan Nuclear Stress Test Report Name: Micky Robledo Exam Date: 08/06/2023 10:15 Exam Location: [facility] Ht (in): 69 Wt (lb): 286 BSA: 2.40 Ordering Phys: Agapito Hernandez MD Referring Phys: Shirin Rasmussen Technologist: MARY KATE,, Age: 53 Gender: M : 1970 Procedure CPT: Indications: Z51.81 THERAPEUTIC DRUG LEVEL MONITORING ICD-10 Codes: Patient History: Chest pain, shortness of breath and A-Fib Medications: Meds past 24 hrs: Pretest Chest Pain: STRESS TEST Lexiscan Protocol Exercise Duration (min:sec): 02:[address] Depressions (mm): Angina Score: Harman Score: Resting HR (bpm): 65 Peak HR (bpm): 91 Resting BP (mmHg): 117 / 73 Peak BP (mmHg): / 69 MPHR: 166 Target HR: 141 % MPHR: 55 METS: 1.0 Total Dose: Peak Dose: Atropine: Double Product: BP Response: Stress Termination: Infusion complete Stress Symptoms: No chest pain or symptoms Stress Summary: ECG ANALYSIS Resting ECG: Stress ECG: CONCLUSIONS Nondiagnostic electrocardiogram stress test Dr. Juan A Melo MD (Electronically Signed) Final Date: 06 August 2023 12:23
== END | disposition home or self-care (01) ==
LOC: RADNMMAIN 08:15
PROVIDERS: ATTEND Internal Medicine Clinical Cardiac Electrophysiology
DX: Z51.81 Encounter for therapeutic drug level monitoring (principal); E11.9 Type 2 diabetes mellitus without complications; I10 Essential (primary) hypertension; Z87.891 Personal history of nicotine dependence
CPT/HCPCS: 93017; 78452; A9500; J2785

== ENCOUNTER → 2023-08-12 | Outpatient (CLI) | payer OTHER ==
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
== END | disposition home or self-care (01) ==
LOC: RADXRMAIN 11:05
PROVIDERS: ATTEND Orthopaedic Surgery
DX: Z18.10 Retained metal fragments, unspecified (principal)

== ENCOUNTER 2024-06-10 15:07 | Emergency (ER) | payer OTHER ==
[2024-06-10] MEDS: ACETAMINOPHEN TAB 500 MG TAB PO STA (16:06)
[2024-06-10] MEDS: IBUPROFEN 800 MG TAB PO STA (16:06)
[2024-06-10] MEDS: methylPREDNISolone SOD SUCCI 125 MG/2 ML VIAL IV STA (16:09)
[2024-06-10] MEDS: SODIUM CHLORIDE 0.9% 1,000 ML IV STA (16:09)
[2024-06-10 16:13] LABS: Basophils % (A) 0 %; Eosinophils # (A) 0.1 k/uL (0-0.7); Eosinophils % (A) 1 %; HCT 39.8 % (39.0-53.0); HGB 12.5 gm/dL (13.0-17.5); Lymphocytes # (A) 0.4 k/uL (1.0-4.8); Lymphocytes % (A) 7 %; MCH 27.2 pg (25.0-35.0); MCHC 31.6 g/dL (31.0-37.0); MCV 86.3 fL (80.0-100.0); Mean Platelet Volume 10.6; Monocytes # (A) 0.3 k/uL (0-1.0); Monocytes % (A) 5 %; Neutrophils # (A) 5.5 k/uL (1.3-7.7); Neutrophils % (A) 84 %; Platelet Count 134 k/uL (150-450); RBC 4.61 m/uL (4.30-5.90); RDW 15.6 % (11.5-15.5); WBC 6.6 k/uL (3.8-10.6)
[2024-06-10 16:23] LABS: Partial Thromboplastin Time 27.5 sec (22.0-30.0); Prothrombin Time 11.2 sec (10.0-12.5)
[2024-06-10 16:29] LABS: ALT 48 U/L (4-49); AST 42 U/L (17-59); African American GFR (CKD) >90 (>60 ml/min/1.73 sqM); Albumin 4.5 g/dL (3.5-5.0); Alkaline Phosphatase 62 U/L (38-126); Anion Gap 9 mmol/L; Blood Urea Nitrogen 12 mg/dL (9-20); Calcium 9.3 mg/dL (8.4-10.2); Carbon Dioxide 29 mmol/L (22-30); Chloride 98 mmol/L (98-107); Glucose 116 mg/dL (74-99); Magnesium 1.4 mg/dL (1.6-2.3); Non-African American GFR(CKD) >90 (>60 ml/min/1.73 sqM); Potassium 3.4 mmol/L (3.5-5.1); Sodium 136 mmol/L (137-145); Total Bilirubin 0.7 mg/dL (0.2-1.3); Total Protein 6.9 g/dL (6.3-8.2)
[2024-06-10] MEDS: IPRATROPIUM-ALBUTEROL 3 ML NEB INHALATION STA ×2 (16:36→17:15)
--- NOTE | 2024-06-10 16:39 | XR ---
EXAMINATION TYPE: XR chest 2V DATE OF EXAM: 06/10/2024 COMPARISON: 01/08/2023 HISTORY: 53 year-old male shortness of breath, difficulty breathing TECHNIQUE: PA and lateral views FINDINGS: Heart upper limits of normal in size. Aorta and vasculature within normal limits. No consolidation or pleural effusion. IMPRESSION: Borderline heart size. No definite acute process. [facility], , 06/10/2024 4:37 PM
[2024-06-10] MEDS: MAGNESIUM SULFATE-D5W PMX 1 GM in DEXTROSE/WATER 1 100ML.BAG IVPB ONE (17:54)
--- NOTE | 2024-06-10 17:59 | ED ---
General Adult HPI - General Chief complaint: Shortness of Breath Stated complaint: SOB Time Seen by Provider: 06/10/24 15:30 Source: patient, RN notes reviewed, old records reviewed Mode of arrival: wheelchair Limitations: no limitations - History of Present Illness Initial comments: Patient is a 53-year-old male with past medical history remarkable for fevers, productive cough, shortness of breath. Has a history remarkable for atrial fibrillation on blood thinners, COPD, hypertension, hyperlipidemia. Positive sick contacts with similar complaints. Denies nausea or vomiting or diarrhea. Had 1 episode of emesis but was after coughing fit. Otherwise has no other acute complaints. Presents for further evaluation. - Related Data Home Medications Medication Instructions Recorded Confirmed Triamterene-Hctz 37.5-25Mg 2 cap PO DAILY 02/26/21 06/10/24 [Dyazide 37.5-25 Capsule] Valsartan 320 mg PO DAILY 02/26/21 06/10/24 carvediloL [Coreg] 12.5 mg PO BID 02/26/21 06/10/24 Albuterol Sulfate [Albuterol 2 puff PO RT-Q6H PRN 06/10/24 06/10/24 Sulfate Hfa] Atorvastatin [Lipitor] 20 mg PO DAILY 06/10/24 06/10/24 Flecainide Acetate [Tambocor] 100 mg PO BID 06/10/24 06/10/24 Testosterone Cypionate 200 mg IM WE 06/10/24 06/10/24 [Depo-Testosterone] amLODIPine [Norvasc] 5 mg PO DAILY 06/10/24 06/10/24 predniSONE [Deltasone] 40 mg PO DAILY 06/10/24 06/10/24 sitaGLIPtin [Januvia] 100 mg PO DAILY 06/10/24 06/10/24 Previous Rx's Medication Instructions Recorded Apixaban [Eliquis] 5 mg PO BID #60 tab 09/21/19 Albuterol Inhaler [Ventolin Hfa 2 puff INHALATION QID #8 gm 06/10/24 Inhaler] Azithromycin [Zithromax] 250 mg PO DAILY 4 Days #4 tab 06/10/24 predniSONE [Deltasone] 40 mg PO DAILY 5 Days #10 tab 06/10/24 Allergies Allergy/AdvReac Type Severity Reaction Status Date / Time No Known Allergies Allergy Verified 06/10/24 17:09 Review of Systems ROS Statement: Those systems with pertinent positive or pertinent negative responses have been documented in the HPI. Review of Systems: CONST: Endorses fever EYES: Denies blurry vision ENT: Endorses congestion C/V: Denies Chest pain RESP: Endorses cough, congestion, shortness of breath GI: Denies abdominal pain : Denies dysuria SKIN: Denies rash. MSK: Denies joint pain. NEURO: Denies headache ROS Other: All systems not noted in ROS Statement are negative. Past Medical History Past Medical History: Atrial Fibrillation, COPD, Hyperlipidemia, Hypertension, Sleep Apnea/CPAP/BIPAP Additional Past Medical History / Comment(s): Pt states he had an arrhythmia found by his PCP about a month ago-he was sent for a cardiology appt-EKG done by PCP not available to special education aide. Pt states he has an irregular sleep pattern and will wake up at night gasping and his heart is racing. arthritis History of Any Multi-Drug Resistant Organisms: None Reported Past Surgical History: Orthopedic Surgery Additional Past Surgical History / Comment(s): right knee arthroscopy, cardioversion 10/20 Past Anesthesia/Blood Transfusion Reactions: No Reported Reaction Past Psychological History: No Psychological Hx Reported Smoking Status: Current every day smoker Past Alcohol Use History: Occasional Past Drug Use History: Marijuana - Past Family History Father Family Medical History: Cancer Additional Family Medical History / Comment(s): Father at the age of 76yrs. Mother Additional Family Medical History / Comment(s): Mother had heart murmur. General Exam - General Exam Comments Initial Comments: General: Appears in no acute distress. Patient is febrile. HEAD: Normal with no signs of head trauma. EYES: PERRLA, EOMI, conjunctiva normal, no discharge. ENT: Hearing grossly intact, normal oropharynx. RESPIRATORY: Lateral end expiratory wheezing. Mild increased work of breathing. No hypoxia on exam. C/V: Regular rate and rhythm. S1 and S2 auscultated, no edema, peripheral pulses 2+ and intact throughout ABD: Abd is soft, nontender, nondistended EXT: Normal range of motion, no obvious deformity SKIN: No rashes or lesions observed on exposed skin. NEURO: Alert and oriented x 4. Limitations: no limitations Course Vital Signs 06/10/24 06/10/24 06/10/24 15:10 16:36 16:44 Temperature 103.0 F H Pulse Rate 85 79 84 Respiratory 26 H Rate Blood Pressure 156/91 O2 Sat by Pulse 95 Oximetry 06/10/24 06/10/24 06/10/24 17:16 17:23 18:47 Temperature 98.3 F Pulse Rate 84 82 79 Respiratory 20 Rate Blood Pressure 144/89 O2 Sat by Pulse 97 Oximetry Medical Decision Making - Medical Decision Making Was pt. sent in by a medical professional or institution (MAYRA Barillas, SOFTWARE SECURITY CONSULTANT, urgent care, hospital, or prison...) When possible be specific @ -No Did you speak to anyone other than the patient for history (EMS, parent, family, police, friend...)? What history was obtained from this source @ -No Did you review nursing and triage notes (agree or disagree)? Why? @ -I reviewed and agree with nursing and triage notes Were old charts reviewed (outside hosp., previous admission, EMS record, old EKG, old radiological studies, urgent care reports/EKG's, prison records)? Report findings @ -No old charts were reviewed Differential Diagnosis (chest pain, altered mental status, abdominal pain women, abdominal pain men, vaginal bleeding, weakness, fever, dyspnea, syncope, headache, dizziness, GI bleed, back pain, seizure, CVA, palpatations, mental health, musculoskeletal)? @ -COVID, flu, RSV, COPD. This list is not all inclusive. EKG interpreted by me (3pts min.). @ -As above X-rays interpreted by me (1pt min.). @ -Chest x-ray reveals no obvious acute cardiopulmonary process. CT interpreted by me (1pt min.). @ -None done U/S interpreted by me (1pt. min.). @ -None done What testing was considered but not performed or refused? (CT, X-rays, U/S, labs)? Why? @ -None What meds were considered but not given or refused? Why? @ -None Did you discuss the management of the patient with other professionals (professionals i.e. MAYRA Barillas, SOFTWARE SECURITY CONSULTANT, lab, RT, psych nurse, social sciences department chair, sheetmetal patternmaker, teacher, chief revenue officer, disease case manager rn)? Give summary @ -No Was smoking cessation discussed for >3mins.? @ -No Was critical care preformed (if so, how long)? @ -No Were there social determinants of health that impacted care today? How? (Homelessness, low income, unemployed, alcoholism, drug addiction, transportation, low edu. Level, literacy, decrease access to med. care, fci, rehab)? @ -No Was there de-escalation of care discussed even if they declined (Discuss DNR or withdrawal of care, Hospice)? DNR status @ -No What co-morbidities impacted this encounter? (DM, HTN, Smoking, COPD, CAD, Cancer, CVA, ARF, Chemo, Hep., AIDS, mental health diagnosis, sleep apnea, morbid obesity)? @ -COPD Was patient admitted / discharged? Hospital course, mention meds given and route, prescriptions, significant lab abnormalities, going to OR and other pertinent info. @ -Based on the patient's presentation and physical exam, presents emergency department complaining of cough, congestion, fevers, difficulty in breathing. Appears he is having COPD exacerbation likely upper respiratory infection. We will obtain workup accordingly. Patient was in agreement this plan. He will be symptomatically treat with IV steroids, breathing treatment, as well as IV fluids. Patient was in agreement this plan. EKG showed no signs of acute ischemia. Chest x-ray unremarkable. Labs remarkable for no leukocytosis. Mild hypomagnesemia which was replenished, and normal viral swabs. On reevaluation after multiple breathing treatments, lung sounds are improved. Patient has fever free after a dose of Tylenol Motrin. He is feeling improved. I believe it is safe for him to be just discharged home. He will be started on antibiotics for tracheobronchitis. I will also start him on prednisone 40 mg daily in addition to a refill on his inhaler. He was in agreement this plan. Strict return precautions discussed. Counseled him on using antipyretics at home for his fever. He was in agreement this plan. I will provide the patient with a prescription for prednisone, azithromycin, albuterol inhaler. I instructed the patient to follow up with their PCP in the next 1-3 days.. I explained that the patient should return to the emergency department if they experience any worsening symptoms. Strict return precautions were discussed with the patient. The patient expressed understanding of these instructions. I answered all questions that the patient had. The patient was discharged home in good condition with their prescriptions and follow up information. I was contacted by the pharmacy, and due to the patient's interaction with flecainide azithromycin will be avoided and we will switch the patient to doxycycline. This was after the patient was discharged. Undiagnosed new problem with uncertain prognosis? @ -No Drug Therapy requiring intensive monitoring for toxicity (Heparin, Nitro, Insulin, Cardizem)? @ -No Were any procedures done? @ -No Diagnosis/symptom? @ -COPD, tracheobronchitis Acute, or Chronic, or Acute on Chronic? @ -Acute Uncomplicated (without systemic symptoms) or Complicated (systemic symptoms)? @ -Complicated Side effects of treatment? @ -No Exacerbation, Progression, or Severe Exacerbation? @ -No Poses a threat to life or bodily function? How? (Chest pain, [place], [place], pneumonia, PE, COPD, DKA, ARF, appy, cholecystitis, CVA, Diverticulitis, Homicidal, Suicidal, threat to staff... and all critical care pts) @ -Unlikely at this time - Lab Data Result diagrams: 06/10/24 15:42 06/10/24 15:42 Lab Results 06/10/24 06/10/24 06/10/24 Range/Units 15:16 15:42 15:42 WBC 6.6 (3.8-10.6) k/uL RBC 4.61 (4.30-5.90) m/uL Hgb 12.5 L (13.0-17.5) gm/dL Hct 39.8 (39.0-53.0) % MCV 86.3 (80.0-100.0) fL MCH 27.2 (25.0-35.0) pg MCHC 31.6 (31.0-37.0) g/dL RDW 15.6 H (11.5-15.5) % Plt Count 134 L (150-450) k/uL MPV 10.6 Neutrophils % 84 % Lymphocytes % 7 % Monocytes % 5 % Eosinophils % 1 % Basophils % 0 % Neutrophils # 5.5 (1.3-7.7) k/uL Lymphocytes # 0.4 L (1.0-4.8) k/uL Monocytes # 0.3 (0-1.0) k/uL Eosinophils # 0.1 (0-0.7) k/uL Basophils # 0.0 (0-0.2) k/uL PT 11.2 (10.0-12.5) sec INR 1.0 (<1.2) APTT 27.5 (22.0-30.0) sec Sodium (137-145) mmol/L Potassium (3.5-5.1) mmol/L Chloride (98-107) mmol/L Carbon Dioxide (22-30) mmol/L Anion Gap mmol/L BUN (9-20) mg/dL Creatinine (0.66-1.25) mg/dL Est GFR (CKD-EPI)AfAm (>60 ml/min/1.73 sqM) Est GFR (CKD-EPI)NonAf (>60 ml/min/1.73 sqM) Glucose (74-99) mg/dL Plasma Lactic Acid Christopher (0.7-2.0) mmol/L Calcium (8.4-10.2) mg/dL Magnesium (1.6-2.3) mg/dL Total Bilirubin (0.2-1.3) mg/dL AST (17-59) U/L ALT (4-49) U/L Alkaline Phosphatase (38-126) U/L Total Protein (6.3-8.2) g/dL Albumin (3.5-5.0) g/dL Influenza Type A (PCR) Not Detected (Not Detectd) Influenza Type B (PCR) Not Detected (Not Detectd) RSV (PCR) Not Detected (Not Detectd) SARS-CoV-2 (PCR) Not Detected (Not Detectd) 06/10/24 06/10/24 Range/Units 15:42 15:42 WBC (3.8-10.6) k/uL RBC (4.30-5.90) m/uL Hgb (13.0-17.5) gm/dL Hct (39.0-53.0) % MCV (80.0-100.0) fL MCH (25.0-35.0) pg MCHC (31.0-37.0) g/dL RDW (11.5-15.5) % Plt Count (150-450) k/uL MPV Neutrophils % % Lymphocytes % % Monocytes % % Eosinophils % % Basophils % % Neutrophils # (1.3-7.7) k/uL Lymphocytes # (1.0-4.8) k/uL Monocytes # (0-1.0) k/uL Eosinophils # (0-0.7) k/uL Basophils # (0-0.2) k/uL PT (10.0-12.5) sec INR (<1.2) APTT (22.0-30.0) sec Sodium 136 L (137-145) mmol/L Potassium 3.4 L (3.5-5.1) mmol/L Chloride 98 (98-107) mmol/L Carbon Dioxide 29 (22-30) mmol/L Anion Gap 9 mmol/L BUN 12 (9-20) mg/dL Creatinine 0.89 (0.66-1.25) mg/dL Est GFR (CKD-EPI)AfAm >90 (>60 ml/min/1.73 sqM) Est GFR (CKD-EPI)NonAf >90 (>60 ml/min/1.73 sqM) Glucose 116 H (74-99) mg/dL Plasma Lactic Acid Christopher 1.0 (0.7-2.0) mmol/L Calcium 9.3 (8.4-10.2) mg/dL Magnesium 1.4 L (1.6-2.3) mg/dL Total Bilirubin 0.7 (0.2-1.3) mg/dL AST 42 (17-59) U/L ALT 48 (4-49) U/L Alkaline Phosphatase 62 (38-126) U/L Total Protein 6.9 (6.3-8.2) g/dL Albumin 4.5 (3.5-5.0) g/dL Influenza Type A (PCR) (Not Detectd) Influenza Type B (PCR) (Not Detectd) RSV (PCR) (Not Detectd) SARS-CoV-2 (PCR) (Not Detectd) - EKG Data -: EKG Interpreted by Me EKG Comments: 12-lead Electrocardiogram Interpretation Note EKG was reviewed and interpreted by myself. 12-lead ECG performed at 1542 is interpreted by me as revealing normal sinus rhythm at a rate of 85 beats per minute. [place] is normal. [place] interval is 160 ms, QRS duration is 104 ms, QTc is 435 ms.. There were no ST or T wave abnormalities to suggest myocardial ischemia or injury. R wave progression across the precordium was satisfactory. By my interpretation this EKG is non-diagnostic for acute ischemia. Disposition Clinical Impression: COPD (chronic obstructive pulmonary disease), Tracheobronchitis Disposition: HOME SELF-CARE Condition: Good Instructions (If sedation given, give patient instructions): Acute Bronchitis (ED), COPD (Chronic Obstructive Pulmonary Disease) (ED) Prescriptions: predniSONE [Deltasone] 40 mg PO DAILY 5 Days #10 tab Albuterol Inhaler [Ventolin Hfa Inhaler] 2 puff INHALATION QID #8 gm Azithromycin [Zithromax] 250 mg PO DAILY 4 Days #4 tab Is patient prescribed a controlled substance at d/c from ED?: No Referrals: Chepe Modi MD [Primary Care Provider] - 1-2 days Time of Disposition: 17:55
[2024-06-10] MEDS: cefTRIAXone IN SWFI 1,000 MG/10 ML SYRINGE IVP STA (18:15)
[2024-06-10] MEDS: AZITHROMYCIN 500 MG TAB PO STA (18:15)
[2024-06-10 20:14] VITALS: BP 144/89; PULSE 79; RESP 20; TEMP 98.3
== END 2024-06-10 18:50 | disposition home or self-care (01) ==
LOC: EC 15:07
CPT/HCPCS: 36415; 71046; 80053; 83605; 83735; 85025; 85610; 85730; 87636; 93005; 94640; 96361; 96365; 96375; 99285

== ENCOUNTER 2024-06-30 10:24 | Emergency (ER) | payer OTHER ==
[2024-06-30 10:36] VITALS: TEMP 97.8
[2024-06-30] MEDS: ORPHENADRINE 30 MG/ML 2 ML VIAL IM STA (11:01)
--- NOTE | 2024-06-30 11:01 | ED ---
Back Pain [facility] - General Chief Complaint: Back Pain/Injury Stated Complaint: back pain Time Seen by Provider: 06/30/24 10:58 Source: patient, RN notes reviewed Limitations: no limitations - History of Present Illness Initial Comments: 53-year-old male presenting to the ER with chief complaint of low back pain x 3 days. Reports the pain is on the lower right side of his back and is worse with movement and standing. He has been going to the gym often and feels he may have pulled a muscle, however denies any known injury or trauma. The pain does not radiate. Denies bowel or bladder incontinence. Denies weakness, numbness, tingling of the legs. Denies low-grade fevers. Denies any urinary symptoms such as dysuria, frequency, hematuria. Patient does take Eliquis for atrial fibrillation. Other past medical history includes hypertension, diabetes, and hyperlipidemia - Related Data Home Medications Medication Instructions Recorded Confirmed Triamterene-Hctz 37.5-25Mg 2 cap PO DAILY 02/26/21 06/10/24 [Dyazide 37.5-25 Capsule] Valsartan 320 mg PO DAILY 02/26/21 06/10/24 carvediloL [Coreg] 12.5 mg PO BID 02/26/21 06/10/24 Albuterol Sulfate [Albuterol 2 puff PO RT-Q6H PRN 06/10/24 06/10/24 Sulfate Hfa] Atorvastatin [Lipitor] 20 mg PO DAILY 06/10/24 06/10/24 Flecainide Acetate [Tambocor] 100 mg PO BID 06/10/24 06/10/24 Testosterone Cypionate 200 mg IM WE 06/10/24 06/10/24 [Depo-Testosterone] amLODIPine [Norvasc] 5 mg PO DAILY 06/10/24 06/10/24 predniSONE [Deltasone] 40 mg PO DAILY 06/10/24 06/10/24 sitaGLIPtin [Januvia] 100 mg PO DAILY 06/10/24 06/10/24 Previous Rx's Medication Instructions Recorded Apixaban [Eliquis] 5 mg PO BID #60 tab 09/21/19 Albuterol Inhaler [Ventolin Hfa 2 puff INHALATION QID #8 gm 06/10/24 Inhaler] Azithromycin [Zithromax] 250 mg PO DAILY 4 Days #4 tab 06/10/24 predniSONE [Deltasone] 40 mg PO DAILY 5 Days #10 tab 06/10/24 Lidocaine 5% Patch [Lidoderm 5% 1 patch TOPICAL DAILY 7 Days #7 06/30/24 Patch] patch Allergies Allergy/AdvReac Type Severity Reaction Status Date / Time No Known Allergies Allergy Verified 06/30/24 10:31 Review of Systems ROS Statement: Those systems with pertinent positive or pertinent negative responses have been documented in the HPI. ROS Other: All systems not noted in ROS Statement are negative. 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 Pt states he has an irregular sleep pattern and will wake up at night gasping and his heart is racing. arthritis History of Any Multi-Drug Resistant Organisms: None Reported Past Surgical History: Orthopedic Surgery Additional Past Surgical History / Comment(s): right knee arthroscopy, cardioversion 10/20 Past Anesthesia/Blood Transfusion Reactions: No Reported Reaction Past Psychological History: No Psychological Hx Reported Smoking Status: Current every day smoker, Former smoker Past Alcohol Use History: Rare Past Drug Use History: Marijuana - Past Family History Father Family Medical History: Cancer Additional Family Medical History / Comment(s): Father at the age of 76yrs. Mother Additional Family Medical History / Comment(s): Mother had heart murmur. General Exam Limitations: no limitations General appearance: alert, in no apparent distress Head exam: Present: atraumatic, normocephalic, normal inspection Eye exam: Present: normal appearance, PERRL, EOMI. Absent: scleral icterus, conjunctival injection, periorbital swelling Respiratory exam: Present: normal lung sounds bilaterally. Absent: respiratory distress, wheezes, rales, rhonchi, stridor Cardiovascular Exam: Present: regular rate, normal rhythm, normal heart sounds. Absent: systolic murmur, diastolic murmur, rubs, gallop, clicks GI/Abdominal exam: Present: soft, normal bowel sounds. Absent: distended, tenderness, guarding, rebound, rigid Back exam: Present: normal inspection, full ROM (Pain with flexion and extension), other (Full strength and range of motion of bilateral hips, no saddle anesthesia, full sensation and DP pulses bilaterally). Absent: tenderness, CVA tenderness (R), CVA tenderness (L), paraspinal tenderness, rash noted Neurological exam: Present: alert, oriented X3 Psychiatric exam: Present: normal affect, normal mood Skin exam: Present: warm, dry, intact, normal color. Absent: rash Course Vital Signs 06/30/24 06/30/24 10:31 12:46 Temperature 97.8 F Pulse Rate 62 56 L Respiratory 18 16 Rate Blood Pressure 140/73 125/82 O2 Sat by Pulse 98 99 Oximetry Medical Decision Making - Medical Decision Making Was pt. sent in by a medical professional or institution (, PA, ONLINE CONTENT COORDINATOR, urgent care, hospital, or fci...) When possible be specific @ -No Did you speak to anyone other than the patient for history (EMS, parent, family, police, friend...)? What history was obtained from this source @ -No Did you review nursing and triage notes (agree or disagree)? Why? @ -I reviewed and agree with nursing and triage notes Were old charts reviewed (outside hosp., previous admission, EMS record, old EKG, old radiological studies, urgent care reports/EKG's, fci records)? Report findings @ -No old charts were reviewed Differential Diagnosis (chest pain, altered mental status, abdominal pain women, abdominal pain men, vaginal bleeding, weakness, fever, dyspnea, syncope, headache, dizziness, GI bleed, back pain, seizure, CVA, palpatations, mental health, musculoskeletal)? @ -Differential Back Pain: Strain, zoster, cauda equina syndrome, epidural abscess, vertebral osteomyelitis, discitis, fracture, subluxation, disc herniation, DJD, spinal stenosis, dissection, AAA, pancreatitis, peptic ulcer disease, pyelonephritis, kidney stone, this is not meant to be an all-inclusive list. EKG interpreted by me (3pts min.). @ -None X-rays interpreted by me (1pt min.). @ -Lumbar spine x-ray reveals no acute process, mild degenerative disc disease and facet arthropathy of lower spine CT interpreted by me (1pt min.). @ -None done U/S interpreted by me (1pt. min.). @ -None done What testing was considered but not performed or refused? (CT, X-rays, U/S, labs)? Why? @ -None What meds were considered but not given or refused? Why? @ -Toradol not given as patient is on Eliquis Did you discuss the management of the patient with other professionals (professionals i.e. , PA, ONLINE CONTENT COORDINATOR, lab, RT, psych nurse, social group worker, regulatory services consultant, teacher, medical laboratory technical officer, shelter case manager)? Give summary @ -No Was smoking cessation discussed for >3mins.? @ -No Was critical care preformed (if so, how long)? @ -No Were there social determinants of health that impacted care today? How? (Homelessness, low income, unemployed, alcoholism, drug addiction, transportation, low edu. Level, literacy, decrease access to med. care, retirement, rehab)? @ -No Was there de-escalation of care discussed even if they declined (Discuss DNR or withdrawal of care, Hospice)? DNR status @ -No What co-morbidities impacted this encounter? (DM, HTN, Smoking, COPD, CAD, Cancer, CVA, ARF, Chemo, Hep., AIDS, mental health diagnosis, sleep apnea, morbid obesity)? @ -None Was patient admitted / discharged? Hospital course, mention meds given and route, prescriptions, significant lab abnormalities, going to OR and other pertinent info. @ -Charge. This is a 53-year-old male presenting with right-sided lower back pain x 3 days. No known injury or trauma. No red flag symptoms or neurological symptoms. Vital signs within acceptable limits. Neurovascularly intact. Patient was provided with analgesics. Lumbar spine x-ray revealed no acute process, mild degenerative disc disease and facet arthropathy of lower spine. Urinalysis was unremarkable, negative for blood and bacteria. Discussed with patient diagnosis of low back strain. Supportive care discussed as well as return precautions. Patient is agreeable to plan. Case was discussed with my ED attending Dr. Cosby. Patient discharged in stable condition with analgesics. Undiagnosed new problem with uncertain prognosis? @ -No Drug Therapy requiring intensive monitoring for toxicity (Heparin, Nitro, Insulin, Cardizem)? @ -No Were any procedures done? @ -No Diagnosis/symptom? @ -Low back strain Acute, or Chronic, or Acute on Chronic? @ -Acute Uncomplicated (without systemic symptoms) or Complicated (systemic symptoms)? @ -Uncomplicated Side effects of treatment? @ -No Exacerbation, Progression, or Severe Exacerbation? @ -No Poses a threat to life or bodily function? How? (Chest pain, [place], [place], pneumonia, PE, COPD, DKA, ARF, appy, cholecystitis, CVA, Diverticulitis, Homicidal, Suicidal, threat to staff... and all critical care pts) @ -No - Lab Data Lab Results 06/30/24 Range/Units 11:23 Urine Color Colorless Urine Appearance Clear (Clear) Urine pH 7.5 (5.0-8.0) Ur Specific [place] 1.012 (1.001-1.035) Urine Protein Negative (Negative) Urine Glucose (UA) Negative (Negative) Urine Ketones Negative (Negative) Urine Blood Negative (Negative) Urine Nitrite Negative (Negative) Urine Bilirubin Negative (Negative) Urine Urobilinogen <2.0 (<2.0) mg/dL Ur Leukocyte Esterase Negative (Negative) Disposition Clinical Impression: Low back strain Disposition: HOME SELF-CARE Condition: Stable Instructions (If sedation given, give patient instructions): Acute Low Back Pain (ED) Additional Instructions: Take muscle relaxers and lidocaine patches as needed for pain. Stretch often and use heat to affected area. Please return to the Emergency Department if symptoms worsen or any other concerns. Prescriptions: Lidocaine 5% Patch [Lidoderm 5% Patch] 1 patch TOPICAL DAILY 7 Days #7 patch Is patient prescribed a controlled substance at d/c from ED?: No Referrals: Chepe Modi MD [Primary Care Provider] - 1-2 days Time of Disposition: 12:37
[2024-06-30] MEDS: ACETAMINOPHEN TAB 500 MG TAB PO STA (11:04)
[2024-06-30] MEDS: LIDOCAINE 4% PATCH TOPICAL ONE (11:05)
[2024-06-30 11:36] LABS: Appearance,Urine Clear (Clear); Bilirubin,Urine Negative (Negative); Blood,Urine Negative (Negative); Color,Urine Colorless; Glucose,Urine (UA) Negative (Negative); Ketones,Urine Negative (Negative); Leukocyte Esterase,Urine Negative (Negative); Nitrite,Urine Negative (Negative); PH, Urine 7.5 (5.0-8.0); Protein,Urine Negative (Negative); Specific Gravity,Urine 1.012 (1.001-1.035); Urobilinogen,Urine <2.0 mg/dL (<2.0)
--- NOTE | 2024-06-30 11:57 | XR ---
EXAMINATION TYPE: XR lumbar spine 2 or 3V DATE OF EXAM: 06/30/2024 CLINICAL HISTORY: Low back pain TECHNIQUE: Three views of the lumbar spine are submitted. COMPARISON: MRI lumbar spine 08/29/2023, lumbar spine radiograph 06/17/2023, CT lumbar spine 9 FINDINGS: There are 5 lumbar type vertebral bodies identified. No acute fracture. Straightening of the normal l umbar lordosis. No spondylolisthesis. Facet arthropathy at L5-S1. Vertebral body heights are within n ormal limits. Mild disc space narrowing with endplate sclerosis at L4-L5 and L5-S1. The overlying soft tissue appears unremarkable. IMPRESSION: 1. No acute fracture or dislocation is seen in the lumbar spine. 2. Mild degenerative disc disease and facet arthropathy of the lower lumbar spine. [facility], , 06/30/2024 11:55 AM
[2024-06-30 12:47] VITALS: BP 125/82; PULSE 56; RESP 16
== END 2024-06-30 12:47 | disposition home or self-care (01) ==
LOC: EC 10:24
CPT/HCPCS: 72100; 81003; 96372; 99284

== ENCOUNTER → 2024-10-27 | Outpatient (CLI) | payer OTHER ==
[2024-10-27 10:33] VITALS: BP 127/83; PULSE 69; RESP 15; TEMP 97.2
--- NOTE | 2024-10-27 14:33 | P.PAINPG ---
PQRS Measure Charge Sheet Comment: HISTORY OF PRESENT ILLNESS: A 54 yr old male as a referral from Dr Peggy Modi presents today w severe and chronic LBP > 2 yrs secondary to radiculopathy, spondylosis and facet arthropathy without myelopathy for evaluation. Pt states pain level is provoked at 7 /10 in intensity, constant, localized in the lumbar spine, predominantly axial, sharp in character w occasional shooting pain towards the buttock and hips. Pain is provoked by over activity. Pain is alleviated by PT x 6 wks which ended in Spring 2023, physician guided home exercises 4-5 times weekly since Spring 2023, medications, manual massage, repositioning and rest . Oswestry axial pain score at 26. PMH: OA, aFib, COPD, Hyperlipidemia, HTN, NIDDM II, JOON PSH: R Knee Arthroscopy, Cardioversion (2019) SH: Daily tobacco use, Rare ETOH use, Cannabis use FH: Fa- [place]/ age 75. Mo- Arrythmia All: See list Meds: See list incl Ibu REVIEW OF ORGAN SYSTEMS: CONSTITUTIONAL: No fevers or chills. No recent weight loss. NEUROLOGICAL: + numbness and tingling along the distal extremities. No seizure disorders or headaches. MUSCULOSKELETAL: + pain PSYCHIATRIC: Denies current depression or suicidal thoughts. Physical Examinations : Constitutional : Cooperative , not in acute distress . Neurologic : Cranial nerve II to XII intact. No focal neurological deficits. Psychiatric : alert & oriented x 3. Matching mood & appropriate affect. Judgment & insight intact. Musculoskeletal : Cervical Spine Motor strength in the deltoid and biceps: Normal right side. Normal Left side Motor strength biceps and the wrist extensors: Normal right side . Normal left side Motor strength in the triceps muscle: Normal right side. Normal left side Deep tendon reflexes: Normal at the biceps. Normal at Brachioradialis. Normal at triceps Vertebral body tenderness to deep palpation over Cervical facet loading test: positive bilaterally Spurling test: positive bilaterally Neck distraction test: positive bilaterally Vinny sign: positive bilaterally Lumbar spine Motor strength lower extremities ,thigh and legs 5/5 Right side , 5/5 Left side Deep tendon reflexes : Normal Knee Jerk. Normal Ankle Jerk Vertebral body tenderness over L5 Herring Test positive R L5-S1 Lumbar facet Loading Test: positive Right / positive Left Range of motion of the lumbar spine Flexion 30 degrees, extension 10 degrees Straight Leg Raise test: Left/ Right positive at degrees Josué test: positive right / positive left. Severe tenderness over the Sacroiliac joint on the Right / Left sides Gaenslen test: positive bilaterally Seated flexion test: positive bilaterally. Sacral spine : Severe tenderness over the Sacroiliac joint: right side / left side Range of motion: Flexion of the lumbar spine <60 degrees Range of motion: Extension of the lumbar spine <20 degrees Gaenslen's Test positive Josué test: positive right side / left side Thigh Thrust Test Sacral Thrust Test Imaging: Lumbar x ray from 06/30/24 reviewed MRI non contrast lumbar spine from [facility] Aug 2024 reviewed CD from [facility] with pt's name but do not have the software to view CD Assessment/ Plan : L5-S1 radiculopathy Recommendation of medication management though pt would benefit from CINDA L5-S1. [place] 7.5/325mg #18 NR. Will discontinue cannabis. Use, side effects, adverse reactions, safe storage discussed. All questions answered. I have spent greater than 30 minutes on patient care today. Dr Dobbins was available by phone for the evaluation of this patient. The time was used to rev iew the medical records including relevant urine studies and Prescription history (MAPs), review of the available imaging, evaluation and examination of the patient, coordination of care with the medical staff and if applicable referring physicians, as well as creation of the medical record - Pain Location Lower Back Pharmacological Interventions: Topical Medication PQRS Narrative: Smoking Status Current every day smoker Home Medications: Ambulatory Orders Apixaban [Eliquis] 5 mg PO BID #60 tab 09/21/19 Triamterene-Hctz 37.5-25Mg [Dyazide 37.5-25 Capsule] 2 cap PO DAILY 02/26/21 Valsartan 320 mg PO DAILY 02/26/21 carvediloL [Coreg] 12.5 mg PO BID 02/26/21 Albuterol Inhaler [Ventolin Hfa Inhaler] 2 puff INHALATION QID #8 gm 06/10/24 Albuterol Sulfate [Albuterol Sulfate Hfa] 2 puff PO RT-Q6H PRN 06/10/24 Atorvastatin [Lipitor] 20 mg PO DAILY 06/10/24 Azithromycin [Zithromax] 250 mg PO DAILY 4 Days #4 tab 06/10/24 Flecainide Acetate [Tambocor] 100 mg PO BID 06/10/24 Testosterone Cypionate [Depo-Testosterone] 200 mg IM WE 06/10/24 amLODIPine [Norvasc] 5 mg PO DAILY 06/10/24 predniSONE [Deltasone] 40 mg PO DAILY 06/10/24 predniSONE [Deltasone] 40 mg PO DAILY 5 Days #10 tab 06/10/24 sitaGLIPtin [Januvia] 100 mg PO DAILY 06/10/24 Lidocaine 5% Patch [Lidoderm 5% Patch] 1 patch TOPICAL DAILY 7 Days #7 patch 06/30/24 HYDROcodone/APAP 7.5-325MG [[place] 7.5-325] 1 tab PO Q4H PRN 3 Days #18 tab 10/27/24 Controlled Substance Measures - Controlled Substance Measures Is patient prescribed a controlled substance at discharge?: Yes When asked, does pt state using other controlled substances?: No If prescribed controlled substance>3 days was MAPS reviewed?: Prescribed <3 Days
== END ==
LOC: PNWHC3 09:34
PROVIDERS: ATTEND Specialist
DX: M54.17 Radiculopathy, lumbosacral region (principal); F17.210 Nicotine dependence, cigarettes, uncomplicated
CPT/HCPCS: 99202

== ENCOUNTER → 2024-11-18 | Outpatient (CLI) | payer OTHER ==
[2024-11-18 11:11] VITALS: BP 168/95; PULSE 69; RESP 19; TEMP 97.3
--- NOTE | 2024-11-18 14:10 | P.PAINPG ---
PQRS Measure Charge Sheet Comment: HISTORY OF PRESENT ILLNESS: A 54 yr old male presents today w severe and chronic LBP > 2 yrs secondary to radiculopathy, spondylosis and facet arthropathy without myelopathy for evaluation. Pt states pain level is provoked at 8 /10 in intensity, constant, localized in the lumbar spine, predominantly axial, throbbing in character w occasional shooting pain towards the buttock and hips. Pain is provoked by over activity. Pain is alleviated by PT x 6 wks which ended in Spring 2023, physician guided home exercises 4-5 times weekly since Spring 2023, medications, manual massage, repositioning and rest . Interventional procedures include Medications include Ibu, Cannabis REVIEW OF ORGAN SYSTEMS: CONSTITUTIONAL: No fevers or chills. No recent weight loss. NEUROLOGICAL: + numbness and tingling along the distal extremities. No seizure disorders or headaches. MUSCULOSKELETAL: + pain PSYCHIATRIC: Denies current depression or suicidal thoughts. Physical Examinations : Constitutional : Cooperative , not in acute distress . Neurologic : Cranial nerve II to XII intact. No focal neurological deficits. Psychiatric : alert & oriented x 3. Matching mood & appropriate affect. Judgment & insight intact. Musculoskeletal : Cervical Spine Motor strength in the deltoid and biceps: Normal right side. Normal Left side Motor strength biceps and the wrist extensors: Normal right side . Normal left side Motor strength in the triceps muscle: Normal right side. Normal left side Deep tendon reflexes: Normal at the biceps. Normal at Brachioradialis. Normal at triceps Vertebral body tenderness to deep palpation over Cervical facet loading test: positive bilaterally Spurling test: positive bilaterally Neck distraction test: positive bilaterally Vinny sign: positive bilaterally Lumbar spine Motor strength lower extremities ,thigh and legs 5/5 Right side , 5/5 Left side Deep tendon reflexes : Normal Knee Jerk. Normal Ankle Jerk Vertebral body tenderness over L5 Herring Test positive R L5-S1 Lumbar facet Loading Test: positive Right / positive Left Range of motion of the lumbar spine Flexion 30 degrees, extension 10 degrees Straight Leg Raise test: Left/ Right positive at degrees Josué test: positive right / positive left. Severe tenderness over the Sacroiliac joint on the Right / Left sides Gaenslen test: positive bilaterally Seated flexion test: positive bilaterally. Sacral spine : Severe tenderness over the Sacroiliac joint: right side / left side Range of motion: Flexion of the lumbar spine <60 degrees Range of motion: Extension of the lumbar spine <20 degrees Gaenslen's Test positive Josué test: positive right side / left side Thigh Thrust Test Sacral Thrust Test Imaging: Lumbar x ray from 06/30/24 reviewed MRI non contrast lumbar spine from [facility] Aug 2024 reviewed CD from [facility] with pt's name but do not have the software to view CD Assessment/ Plan : L5-S1 radiculopathy Recommendation of CINDA L5-S1 vbut pt stated it will drive his glucose up. Discontinue cannabis so he can have medication management. UDS collected 11/18/24. Opiate/ narcotic agreement signed 11/18/24. [place] 10/325mg #90 w 1 RF. Use, side effects, adverse reactions, safe storage discussed. All questions answered. I have spent greater than 30 minutes on patient care today. Dr Dobbins was available by phone for the evaluation of this patient. The time was used to review the medical records including relevant urine studies and Prescription history (MAPs), review of the available imaging, evaluation and examination of the patient, coordination of care with the medical staff and if applicable referring physicians, as well as creation of the medical record PQRS Narrative: Smoking Status Current every day smoker Hx Alcohol Use (MH) No Home Medications: Ambulatory Orders Apixaban [Eliquis] 5 mg PO BID #60 tab 09/21/19 Triamterene-Hctz 37.5-25Mg [Dyazide 37.5-25 Capsule] 2 cap PO DAILY 02/26/21 Valsartan 320 mg PO DAILY 02/26/21 carvediloL [Coreg] 12.5 mg PO BID 02/26/21 Albuterol Inhaler [Ventolin Hfa Inhaler] 2 puff INHALATION QID #8 gm 06/10/24 Albuterol Sulfate [Albuterol Sulfate Hfa] 2 puff PO RT-Q6H PRN 06/10/24 Atorvastatin [Lipitor] 20 mg PO DAILY 06/10/24 Azithromycin [Zithromax] 250 mg PO DAILY 4 Days #4 tab 06/10/24 Flecainide Acetate [Tambocor] 100 mg PO BID 06/10/24 Testosterone Cypionate [Depo-Testosterone] 200 mg IM WE 06/10/24 amLODIPine [Norvasc] 5 mg PO DAILY 06/10/24 predniSONE [Deltasone] 40 mg PO DAILY 06/10/24 predniSONE [Deltasone] 40 mg PO DAILY 5 Days #10 tab 06/10/24 sitaGLIPtin [Januvia] 100 mg PO DAILY 06/10/24 Lidocaine 5% Patch [Lidoderm 5% Patch] 1 patch TOPICAL DAILY 7 Days #7 patch 06/30/24 HYDROcodone/APAP 7.5-325MG [[place] 7.5-325] 1 tab PO Q4H PRN 3 Days #18 tab 10/27/24 Controlled Substance Measures - Controlled Substance Measures Is patient prescribed a controlled substance at discharge?: Yes When asked, does pt state using other controlled substances?: No If prescribed controlled substance>3 days was MAPS reviewed?: Yes If Rx opioid, was Start Talking consent form obtained?: Yes Was information provided regarding opioid addiction?: Yes
== END ==
LOC: PNWHC3 10:37
PROVIDERS: ATTEND Specialist
DX: M54.17 Radiculopathy, lumbosacral region (principal); F17.210 Nicotine dependence, cigarettes, uncomplicated
CPT/HCPCS: 80307; G0463; 99211

== ENCOUNTER 2024-12-06 22:36 | Emergency (ER) | payer OTHER ==
--- NOTE | 2024-12-06 23:15 | ED ---
Back Pain [facility] - General Chief Complaint: Back Pain/Injury Stated Complaint: back pain Time Seen by Provider: 12/06/24 22:52 Source: patient, RN notes reviewed Limitations: no limitations - History of Present Illness Initial Comments: This is a 54-year-old male presenting with right low back pain (03/10) x 1 week. Patient denies fall or recent trauma to lower back. States pain worsens when standing upright for extended period of time. Denies radiculopathy, paresthesia, saddle paresthesia, urinary incontinence/retention. Patient states he is mainly interested in imaging to ensure there are no concerning findings. MD Complaint: back pain Onset/Timin -: days(s) Similar Symptoms Previously: Yes Place: work Radiation: none Severity scale (1-10): 7 Consistency: intermittent Improves With: supine, sitting upright Worsens With: movement, walking Associated Symptoms: denies other symptoms - Related Data Home Medications Medication Instructions Recorded Confirmed Triamterene-Hctz 37.5-25Mg 2 cap PO DAILY 02/26/21 06/10/24 [Dyazide 37.5-25 Capsule] Valsartan 320 mg PO DAILY 02/26/21 06/10/24 carvediloL [Coreg] 12.5 mg PO BID 02/26/21 06/10/24 Albuterol Sulfate [Albuterol 2 puff PO RT-Q6H PRN 06/10/24 06/10/24 Sulfate Hfa] Atorvastatin [Lipitor] 20 mg PO DAILY 06/10/24 06/10/24 Flecainide Acetate [Tambocor] 100 mg PO BID 06/10/24 06/10/24 Testosterone Cypionate 200 mg IM WE 06/10/24 06/10/24 [Depo-Testosterone] amLODIPine [Norvasc] 5 mg PO DAILY 06/10/24 06/10/24 predniSONE [Deltasone] 40 mg PO DAILY 06/10/24 06/10/24 sitaGLIPtin [Januvia] 100 mg PO DAILY 06/10/24 06/10/24 Previous Rx's Medication Instructions Recorded Apixaban [Eliquis] 5 mg PO BID #60 tab 09/21/19 Albuterol Inhaler [Ventolin Hfa 2 puff INHALATION QID #8 gm 06/10/24 Inhaler] Azithromycin [Zithromax] 250 mg PO DAILY 4 Days #4 tab 06/10/24 predniSONE [Deltasone] 40 mg PO DAILY 5 Days #10 tab 06/10/24 Lidocaine 5% Patch [Lidoderm 5% 1 patch TOPICAL DAILY 7 Days #7 06/30/24 Patch] patch HYDROcodone/APAP 7.5-325MG [[place] 1 tab PO Q4H PRN 3 Days #18 tab 10/27/24 7.5-325] HYDROcodone/APAP 10-325MG [[place] 1 tab PO TID PRN 30 Days #90 tab 11/18/24 10-325] HYDROcodone/APAP 10-325MG [[place] 1 tab PO TID PRN 30 Days #90 tab 11/18/24 10-325] Allergies Allergy/AdvReac Type Severity Reaction Status Date / Time No Known Allergies Allergy Verified 12/06/24 22:46 Review of Systems ROS Statement: Those systems with pertinent positive or pertinent negative responses have been documented in the HPI. ROS Other: All systems not noted in ROS Statement are negative. 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 Pt states he has an irregular sleep pattern and will wake up at night gasping and his heart is racing. arthritis History of Any Multi-Drug Resistant Organisms: None Reported Past Surgical History: Orthopedic Surgery Additional Past Surgical History / Comment(s): right knee arthroscopy, cardioversion 10/20 Past Anesthesia/Blood Transfusion Reactions: No Reported Reaction Past Psychological History: No Psychological Hx Reported Smoking Status: Current every day smoker Past Alcohol Use History: Occasional Past Drug Use History: Marijuana - Past Family History Father Family Medical History: Cancer Additional Family Medical History / Comment(s): Father at the age of 76yrs. Mother Additional Family Medical History / Comment(s): Mother had heart murmur. General Exam Limitations: no limitations General appearance: alert, in no apparent distress Head exam: Present: atraumatic, normocephalic, normal inspection Eye exam: Present: normal appearance, PERRL, EOMI. Absent: scleral icterus, conjunctival injection, periorbital swelling ENT exam: Present: normal exam, mucous membranes moist Neck exam: Present: normal inspection. Absent: tenderness, meningismus, lymphadenopathy Respiratory exam: Present: normal lung sounds bilaterally. Absent: respiratory distress, wheezes, rales, rhonchi, stridor Cardiovascular Exam: Present: regular rate, normal rhythm, normal heart sounds. Absent: systolic murmur, diastolic murmur, rubs, gallop, clicks GI/Abdominal exam: Present: soft, normal bowel sounds. Absent: distended, tenderness, guarding, rebound, rigid Extremities exam: Present: normal inspection, full ROM, normal capillary refill. Absent: tenderness, pedal edema, joint swelling, calf tenderness Back exam: Present: tenderness (Positive right lower lumbar muscle spasm with point tenderness), muscle spasm. Absent: CVA tenderness (R), CVA tenderness (L), vertebral tenderness Neurological exam: Present: alert, oriented X3, CN II-XII intact Psychiatric exam: Present: normal affect, normal mood Skin exam: Present: warm, dry, intact, normal color. Absent: rash Course Vital Signs 12/06/24 12/07/24 22:42 00:27 Temperature 98.2 F 98.8 F Pulse Rate 77 79 Respiratory 16 18 Rate Blood Pressure 180/84 161/105 O2 Sat by Pulse 99 99 Oximetry Medical Decision Making - Medical Decision Making Was pt. sent in by a medical professional or institution ([facility] Barillas, SILK CREPE MACHINE OPERATOR, urgent care, hospital, or retirement...) When possible be specific @ -No Did you speak to anyone other than the patient for history (EMS, parent, family, police, friend...)? What history was obtained from this source @ -No Did you review nursing and triage notes (agree or disagree)? Why? @ -I reviewed and agree with nursing and triage notes Were old charts reviewed (outside hosp., previous admission, EMS record, old EKG, old radiological studies, urgent care reports/EKG's, retirement records)? Report findings @ -No old charts were reviewed Differential Diagnosis (chest pain, altered mental status, abdominal pain women, abdominal pain men, vaginal bleeding, weakness, fever, dyspnea, syncope, headache, dizziness, GI bleed, back pain, seizure, CVA, palpatations, mental health, musculoskeletal)? @ -Differential Musculoskeletal Muscular strain, contusion, ligament sprain, fracture, arthritis, septic arthritis, bursitis, cellulitis, muscle spasm, nerve compression, DVT, arterial occlusion, herpes zoster, electrolyte abnormality, tumor.... This is not meant to be in all inclusive list EKG interpreted by me (3pts min.). @ -Not done X-rays interpreted by me (1pt min.). @ -Lumbar spine x-ray shows no acute fracture, only mild multilevel disc degeneration. CT interpreted by me (1pt min.). @ -None done U/S interpreted by me (1pt. min.). @ -None done What testing was considered but not performed or refused? (CT, X-rays, U/S, labs)? Why? @ -None What meds were considered but not given or refused? Why? @ -None Did you discuss the management of the patient with other professionals (professionals i.e. , PA, SILK CREPE MACHINE OPERATOR, lab, RT, psych nurse, neonatal social worker, fusion operator, teacher, learning officer, piano case maker)? Give summary @ -No Was smoking cessation discussed for >3mins.? @ -No Was critical care preformed (if so, how long)? @ -No Were there social determinants of health that impacted care today? How? (Homelessness, low income, unemployed, alcoholism, drug addiction, transportation, low edu. Level, literacy, decrease access to med. care, care home, rehab)? @ -No Was there de-escalation of care discussed even if they declined (Discuss DNR or withdrawal of care, Hospice)? DNR status @ -No What co-morbidities impacted this encounter? (DM, HTN, Smoking, COPD, CAD, Cancer, CVA, ARF, Chemo, Hep., AIDS, mental health diagnosis, sleep apnea, morbid obesity)? @ -None Was patient admitted / discharged? Hospital course, mention meds given and route, prescriptions, significant lab abnormalities, going to OR and other pertinent info. @ -Lumbar spine x-ray shows no acute fracture, only mild multilevel disc degeneration. Patient provided IM Toradol and Norflex along with lidocaine patch with pain relief noted by patient. Discussed patient with Dr. Wiley. Undiagnosed new problem with uncertain prognosis? @ -No Drug Therapy requiring intensive monitoring for toxicity (Heparin, Nitro, Insulin, Cardizem)? @ -No Were any procedures done? @ -No Diagnosis/symptom? @ -Mechanical back pain, muscle spasm Acute, or Chronic, or Acute on Chronic? @ -Acute Uncomplicated (without systemic symptoms) or Complicated (systemic symptoms)? @ -Uncomplicated Side effects of treatment? @ -No Exacerbation, Progression, or Severe Exacerbation? @ -No Poses a threat to life or bodily function? How? (Chest pain, [place], [place], pneumonia, PE, COPD, DKA, ARF, appy, cholecystitis, CVA, Diverticulitis, Homicidal, Suicidal, threat to staff... and all critical care pts) @ -No Disposition Clinical Impression: Mechanical back pain Disposition: HOME SELF-CARE Condition: Good Instructions (If sedation given, give patient instructions): Acute Low Back Pain (ED) Additional Instructions: Heating pad to affected area for 10 minutes up to 4 times yearly along with gentle massage. Alternate Tylenol/Motrin every 4 hours for pain. Follow-up with PCP for management of ongoing pain. Is patient prescribed a controlled substance at d/c from ED?: No Referrals: Chepe Modi MD [Primary Care Provider] - 1-2 days Time of Disposition: 00:21
[2024-12-06] MEDS: LIDOCAINE 4% PATCH TOPICAL ONE (23:28)
[2024-12-06] MEDS: ORPHENADRINE 30 MG/ML 2 ML VIAL IM STA (23:30)
[2024-12-06] MEDS: KETOROLAC 15 MG/ML 1 ML VIAL IM STA (23:30)
--- NOTE | 2024-12-06 23:34 | XR ---
EXAMINATION TYPE: XR lumbar spine 1V DATE OF EXAM: 12/06/2024 11:18 PM COMPARISON: 07/01/2024 CLINICAL INDICATION: Male, 54 years old with history of low back pain; PHH, pain TECHNIQUE: XR lumbar spine 1V - Frontal view FINDINGS: No evidence of any acute osseous pathology. No evidence of loss of vertebral body height i s seen. There is normal alignment of the lumbar vertebral bodies. No significant degeneration changes throughout the spine. IMPRESSION: 1. No acute fracture. 2. Mild multilevel disc degeneration. [facility], , 12/06/2024 11:32 PM
[2024-12-07 00:32] VITALS: BP 161/105; PULSE 79; RESP 18; TEMP 98.8
== END 2024-12-07 00:27 | disposition home or self-care (01) ==
LOC: EC 22:36
DX: M54.50 Low back pain, unspecified (principal); F17.200 Nicotine dependence, unspecified, uncomplicated
CPT/HCPCS: 72020; 99283

== ENCOUNTER → 2025-01-19 | Outpatient (CLI) | payer OTHER ==
[2025-01-19 11:23] VITALS: BP 161/104; PULSE 71; RESP 16; TEMP 97.5
--- NOTE | 2025-01-19 16:03 | P.PAINPG ---
PQRS Measure Charge Sheet Comment: HISTORY OF PRESENT ILLNESS: A 54 yr old male presents today w severe and chronic LBP > 2 yrs secondary to radiculopathy, spondylosis and facet arthropathy without myelopathy for evaluation. Pt states pain level is provoked at 8 /10 in intensity, constant, localized in the lumbar spine, predominantly axial, throbbing in character w occasional shooting pain towards the buttock and hips. Pain is provoked by over activity. Pain is alleviated by PT x 6 wks which ended in Spring 2023, physician guided home exercises 4-5 times weekly since Spring 2023, medications, manual massage, repositioning and rest . Interventional procedures include Medications include [place] 10/325mg #90, Ibu. Discontinued Cannabis REVIEW OF ORGAN SYSTEMS: CONSTITUTIONAL: No fevers or chills. No recent weight loss. NEUROLOGICAL: + numbness and tingling along the distal extremities. No seizure disorders or headaches. MUSCULOSKELETAL: + pain PSYCHIATRIC: Denies current depression or suicidal thoughts. Physical Examinations : Constitutional : Cooperative , not in acute distress . Neurologic : Cranial nerve II to XII intact. No focal neurological deficits. Psychiatric : alert & oriented x 3. Matching mood & appropriate affect. Judgment & insight intact. Musculoskeletal : Cervical Spine Motor strength in the deltoid and biceps: Normal right side. Normal Left side Motor strength biceps and the wrist extensors: Normal right side . Normal left side Motor strength in the triceps muscle: Normal right side. Normal left side Deep tendon reflexes: Normal at the biceps. Normal at Brachioradialis. Normal at triceps Vertebral body tenderness to deep palpation over Cervical facet loading test: positive bilaterally Spurling test: positive bilaterally Neck distraction test: positive bilaterally Vinny sign: positive bilaterally Lumbar spine Motor strength lower extremities ,thigh and legs 5/5 Right side , 5/5 Left side Deep tendon reflexes : Normal Knee Jerk. Normal Ankle Jerk Vertebral body tenderness over L5 Herring Test positive R L5-S1 Lumbar facet Loading Test: positive Right / positive Left Range of motion of the lumbar spine Flexion 30 degrees, extension 10 degrees Straight Leg Raise test: Left/ Right positive at degrees Josué test: positive right / positive left. Severe tenderness over the Sacroiliac joint on the Right / Left sides Gaenslen test: positive bilaterally Seated flexion test: positive bilaterally. Sacral spine : Severe tenderness over the Sacroiliac joint: right side / left side Range of motion: Flexion of the lumbar spine <60 degrees Range of motion: Extension of the lumbar spine <20 degrees Gaenslen's Test positive Josué test: positive right side / left side Thigh Thrust Test Sacral Thrust Test Imaging: Lumbar x ray from 06/30/24 reviewed MRI non contrast lumbar spine from [facility] Aug 2024 reviewed CD from [facility] with pt's name but do not have the software to view CD Assessment/ Plan : L5-S1 radiculopathy Recommendation of medication management. Discontinue cannabis so he can have medication management. UDS from 11/18/24 reviewed and consistent. Opiate/ narcotic agreement signed 11/18/24. [place] 10/325mg #90 w 1 RF. Use, side effects, adverse reactions, safe storage discussed. All questions answered. I have spent greater than 30 minutes on patient care today. Dr Dobbins was available by phone for the evaluation of this patient. The time was used to review the medical records including relevant urine studies and Prescription history (MAPs), review of the available imaging, evaluation and examination of the patient, coordination of care with the medical staff and if applicable referring physicians, as well as creation of the medical record PQRS Narrative: Smoking Status Current every day smoker Hx Alcohol Use (MH) No Home Medications: Ambulatory Orders Apixaban [Eliquis] 5 mg PO BID #60 tab 09/21/19 Triamterene-Hctz 37.5-25Mg [Dyazide 37.5-25 Capsule] 2 cap PO DAILY 02/26/21 Valsartan 320 mg PO DAILY 02/26/21 carvediloL [Coreg] 12.5 mg PO BID 02/26/21 Albuterol Inhaler [Ventolin Hfa Inhaler] 2 puff INHALATION QID #8 gm 06/10/24 Albuterol Sulfate [Albuterol Sulfate Hfa] 2 puff PO RT-Q6H PRN 06/10/24 Atorvastatin [Lipitor] 20 mg PO DAILY 06/10/24 Azithromycin [Zithromax] 250 mg PO DAILY 4 Days #4 tab 06/10/24 Flecainide Acetate [Tambocor] 100 mg PO BID 06/10/24 Testosterone Cypionate [Depo-Testosterone] 200 mg IM WE 06/10/24 amLODIPine [Norvasc] 5 mg PO DAILY 06/10/24 predniSONE [Deltasone] 40 mg PO DAILY 06/10/24 predniSONE [Deltasone] 40 mg PO DAILY 5 Days #10 tab 06/10/24 sitaGLIPtin [Januvia] 100 mg PO DAILY 06/10/24 Lidocaine 5% Patch [Lidoderm 5% Patch] 1 patch TOPICAL DAILY 7 Days #7 patch 06/30/24 HYDROcodone/APAP 7.5-325MG [[place] 7.5-325] 1 tab PO Q4H PRN 3 Days #18 tab 10/27/24 HYDROcodone/APAP 10-325MG [[place] 10-325] 1 tab PO TID PRN 30 Days #90 tab 01/19/25 HYDROcodone/APAP 10-325MG [[place] 10-325] 1 tab PO TID PRN 30 Days #90 tab 01/19/25 Controlled Substance Measures - Controlled Substance Measures Is patient prescribed a controlled substance at discharge?: Yes When asked, does pt state using other controlled substances?: Yes If prescribed controlled substance>3 days was MAPS reviewed?: Yes
== END ==
LOC: PNWHC3 10:50
PROVIDERS: ATTEND Specialist
DX: M47.26 Other spondylosis with radiculopathy, lumbar region (principal); F17.200 Nicotine dependence, unspecified, uncomplicated
CPT/HCPCS: 99211

== ENCOUNTER → 2025-03-16 | Outpatient (CLI) | payer OTHER ==
[2025-03-16 10:14] VITALS: BP 122/84; PULSE 54; RESP 19
--- NOTE | 2025-03-21 16:17 | P.PAINPG ---
Objective - Vital Signs Vital signs: Vital Signs Temp Pulse 54 L 03/16/25 10:08 Resp 19 03/16/25 10:08 BP 122/84 03/16/25 10:08 Pulse Ox 100 03/16/25 10:08 FiO2 Intake & Output 03/15/25 03/16/25 03/16/25 18:59 06:59 18:59 Weight 137.892 kg PQRS Measure Charge Sheet Mode of Arrival: Ambulatory Comment: HISTORY OF PRESENT ILLNESS: A 54 yr old male presents today w severe and chronic LBP > 2 yrs secondary to radiculopathy, spondylosis and facet arthropathy without myelopathy for evaluation. Pt states pain level is provoked at 8-10 /10 in intensity, constant, localized in the lumbar spine, predominantly axial, throbbing in character w occasional shooting pain towards the buttock and hips. Pain is provoked by over activity. Pain is alleviated by PT x 6 wks which ended in Spring 2023, physicia n guided home exercises 4-5 times weekly since Spring 2023, medications, manual massage, repositioning and rest . Pt requested increased quantity of medications, but discussed use of non - narcotic medications and to be open minded to have procedures in the future if he becomes too dependent on medications. Interventional procedures include Medications include [place] 10/325mg #90, Ibu. Discontinued Cannabis REVIEW OF ORGAN SYSTEMS: CONSTITUTIONAL: No fevers or chills. No recent weight loss. NEUROLOGICAL: + numbness and tingling along the distal ex tremities. No seizure disorders or headaches. MUSCULOSKELETAL: + pain PSYCHIATRIC: Denies current depression or suicidal thoughts. Physical Examinations : Constitutional : Cooperative , not in acute distress . Neurologic : Cranial nerve II to XII intact. No focal neurological deficits. Psychiatric : alert & oriented x 3. Matching mood & appropriate affect. Judgment & insight intact. Musculoskeletal : Cervical Spine Motor strength in the deltoid and biceps: Normal right side. Normal Left side Motor strength biceps and the wrist extensors: Normal right side . Normal left side Motor strength in the triceps muscle: Normal right side. Normal left side Deep tendon reflexes: Normal at the biceps. Normal at Brachioradialis. Normal at triceps Vertebral body tenderness to deep palpation over Cervical facet loading test: positive bilaterally Spurling test: positive bilaterally Neck distraction test: positive bilaterally Vinny sign: positive bilaterally Lumbar spine Motor strength lower extremities ,thigh and legs 5/5 Right side , 5/5 Left side Deep tendon reflexes : Normal Knee Jerk. Normal Ankle Jerk Vertebral body tenderness over L5 Herring Test positive R L5-S1 Lumbar facet Loading Test: positive Right / positive Left Range of motion of the lumbar spine Flexion 30 degrees, extension 10 degrees Straight Leg Raise test: Left/ Right positive at degrees Josué test: positive right / positive left. Severe tenderness over the Sacroiliac joint on the Right / Left sides Gaenslen test: positive bilaterally Seated flexion test: positive bilateral ly. Sacral spine : Severe tenderness over the Sacroiliac joint: right side / left side Range of motion: Flexion of the lumbar spine <60 degrees Range of motion: Extension of the lumbar spine <20 degrees Gaenslen's Test positive Josué test: positive right side / left side Thigh Thrust Test Sacral Thrust Test Imaging: Lumbar x ray from 06/30/24 reviewed MRI non contrast lumbar spine from [facility] Aug 2024 reviewed CD from [facility] with pt's name but do not have the software to view CD Assessment/ Plan : L5-S1 radiculopathy Recommendation of medication management. UDS from 11/18/24 reviewed and consistent. Opiate/ narcotic agreement signed 11/18/24. [place] 10/325mg #90 w 1 RF. Use, side effects, adverse reactions, safe storage discussed. All questions answered. I have spent greater than 30 minutes on patient care today. Dr Dobbins was available by phone for the evaluation of this patient. The time was used to review the medical records including relevant urine studies and Prescription history (MAPs), review of the available imaging, evaluation and examination of the patient, coordination of care with the medical staff and if applicable referring physicians, as well as creation of the medical record - Pain Location Lower Back Pharmacological Interventions: Medication PQRS Narrative: Smoking Status Current every day smoker Blood Pressure 122/84 Pain Intensity [Lower Back] 10 Scale Used Numeric (1 - 10) Hx Alcohol Use (MH) No Home Medications: Ambulatory Orders Apixaban [Eliquis] 5 mg PO BID #60 tab 09/21/19 Triamterene-Hctz 37.5-25Mg [Dyazide 37.5-25 Capsule] 2 cap PO DAILY 02/26/21 Valsartan 320 mg PO DAILY 02/26/21 carvediloL [Coreg] 12.5 mg PO BID 02/26/21 Albuterol Inhaler [Ventolin Hfa Inhaler] 2 puff INHALATION QID #8 gm 06/10/24 Albuterol Sulfate [Albuterol Sulfate Hfa] 2 puff PO RT-Q6H PRN 06/10/24 Atorvastatin [Lipitor] 20 mg PO DAILY 06/10/24 Azithromycin [Zithromax] 250 mg PO DAILY 4 Days #4 tab 06/10/24 Flecainide Acetate [Tambocor] 100 mg PO BID 06/10/24 Testosterone Cypionate [Depo-Testosterone] 200 mg IM WE 06/10/24 amLODIPine [Norvasc] 5 mg PO DAILY 06/10/24 predniSONE [Deltasone] 40 mg PO DAILY 06/10/24 predniSONE [Deltasone] 40 mg PO DAILY 5 Days #10 tab 06/10/24 sitaGLIPtin [Januvia] 100 mg PO DAILY 06/10/24 Lidocaine 5% Patch [Lidoderm 5% Patch] 1 patch TOPICAL DAILY 7 Days #7 patch 06/30/24 HYDROcodone/APAP 7.5-325MG [[place] 7.5-325] 1 tab PO Q4H PRN 3 Days #18 tab 10/27/24 HYDROcodone/APAP 10-325MG [[place] 10-325] 1 tab PO TID PRN 30 Days #90 tab 03/16/25 HYDROcodone/APAP 10-325MG [[place] 10-325] 1 tab PO TID PRN 30 Days #90 tab 03/16/25 Controlled Substance Measures - Controlled Substance Measures Is patient prescribed a controlled substance at discharge?: Yes When asked, does pt state using other controlled substances?: Yes If prescribed controlled substance>3 days was MAPS reviewed?: Yes
== END ==
LOC: PNWHC3 09:58
PROVIDERS: ATTEND Specialist
DX: M47.27 Other spondylosis with radiculopathy, lumbosacral region (principal); F17.200 Nicotine dependence, unspecified, uncomplicated
CPT/HCPCS: 99212